=== PATIENT | male | born 1935 | race Caucasian/White ===

== ENCOUNTER 2016-11-30 14:05 | Observation (INO) | payer MEDICARE, OTHER ==
[~2016-11-30] VITALS: Ht 175.3 cm; Wt 83.5 kg
--- NOTE | 2016-11-30 15:35 | REP ---
Chest two views HISTORY: Syncope Comparison: 10/16/2007 The lungs are clear. The heart is normal in size. The pulmonary vasculature is normal in appearance. The bony structure is intact. IMPRESSION: No acute disease. Signed by Tirso Whipple MD 11/30/2016 03:27 P
--- NOTE | 2016-11-30 15:41 | REP ---
CT head without contrast: History: Trauma. Areas of decreased attenuation are present in the periventricular and subcortical white matter. This represents small vessel ischemic disease. There is no intraparenchymal hemorrhage, mass or midline shift. The ventricular system and cortical sulci are dilated consistent with minimal volume loss. There is no extracerebral collection. There is no fracture. The visualized sinuses are clear. IMPRESSION: 1. Small vessel ischemic disease. 2. Minimal volume loss. Signed by Tirso Whipple MD 11/30/2016 04:02 P
--- NOTE | 2016-11-30 15:42 | REP ---
CT CERVICAL SPINE WITHOUT CONTRAST: HISTORY: Trauma. There is no acute fracture. Disc bulges are present at the C2-3 and C3-4 levels. Disc bulges with associated osteophyte formation are present at the C4-5 through C6-7 levels. There is minimal narrowing of the spinal canal. Uncinate process and/or facet hypertrophy are present at the C2-3 through C7-T1 levels. These findings produce minimal to mild narrowing of the neural foramina. The C4-5 through C6-7 intervertebral discs are decreased in height consistent with disc degeneration. There are 1.5 mm of anterior subluxation of C2 on 3 , 2 mm of anterior subluxation of C3 on 4 and 3 mm of anterior subluxation of C7 on T1. There is ossification of the C2 transverse ligament. Anterior osteophytes are present at the C1-2 and C4-5 through C6-7 levels. A 2 cm hypodensity containing calcification is present in the right thyroid lobe. The right thyroid lobe is enlarged. The left thyroid lobe is normal. IMPRESSION: 1. There is no acute fracture. 2. There is cervical spondylosis at the C1-2 through C7-T1 levels. 3. There is a 2 cm hypodensity in the right thyroid lobe. Ultrasound may be helpful for further evaluation. Signed by Tirso Whipple MD 11/30/2016 04:02 P
--- NOTE | 2016-11-30 15:45 | REP ---
Nickel: Trauma. Technique: AP, lateral, bilateral oblique views of the right hand. Findings: Advanced degenerative changes are appreciated primarily involving the wrist and specifically the first and second carpometacarpal joints with chronic subluxation. Subtle acute injury cannot definitively be excluded. Impression: Advanced degenerative changes as described above. Signed by Jd Bianchi MD 11/30/2016 03:37 P
[2016-11-30 15:50] LABS: BASO % 0.6 % (0.0-1.0); EOS # 0.2 K/mm3 (0.0-0.50); EOS % 2.5 % (0.0-3.0); LARGE UNSTAINED CELL # 0.2 K/mm3 (0.0-0.4); LYMPH # 1.5 K/mm3 (1.5-4.5); LYMPH % 19.1 % (24.0-44.0); MEAN CORPUSCULAR HEMOGLOBIN 30.8 pg (27.0-33.0); MEAN CORPUSCULAR HGB CONC 33.2 g/dl (32.0-36.5); MEAN CORPUSCULAR VOLUME 92.7 fl (80.0-96.0); MONO # 0.4 K/mm3 (0.0-0.8); MONO % 5.4 % (0.0-5.0); NEUTROPHILS # 5.6 K/mm3 (1.8-7.7); NEUTROPHILS % 69.4 % (36.0-66.0); PLATELET COUNT, AUTOMATED 286 k/mm3 (150-450); RED CELL DISTRIBUTION WIDTH 14.4 % (11.5-14.5)
[2016-11-30 17:08] LABS: ANION GAP 6 MEQ/L (8-16); BLOOD UREA NITROGEN 15 MG/DL (7-18); CALCIUM LEVEL 9.1 MG/DL (8.8-10.2); CARBON DIOXIDE LEVEL 29 MEQ/L (21-32); CHLORIDE LEVEL 106 MEQ/L (98-107); CREATININE FOR GFR 0.96 MG/DL (0.70-1.30); GLOMERULAR FILTRATION RATE > 60.0 (>42); GLUCOSE, FASTING 97 MG/DL (83-110); POTASSIUM SERUM 4.8 MEQ/L (3.5-5.1); SODIUM LEVEL 141 MEQ/L (136-145)
[2016-11-30] MEDS ORDERED: ALBU17IN INH (18:38)
[2016-11-30] MEDS ORDERED: BRIM1OPD OU (18:38)
[2016-11-30] MEDS ORDERED: FLOM5CAP PO (18:38)
[2016-11-30] MEDS ORDERED: ALEV220T26 PO (18:38)
[2016-11-30] MEDS ORDERED: ZOCO40TA PO (18:38)
[2016-11-30] MEDS ORDERED: CETI10TA PO (18:38)
[2016-11-30] MEDS ORDERED: SYMB16INH INH (18:38)
[2016-11-30] MEDS ORDERED: LATA5OPD OU (18:38)
[2016-11-30] MEDS ORDERED: RAMI5CA PO (18:38)
[2016-11-30] MEDS ORDERED: CETIRIZINE (ZyrTEC) 10 MG TAB PO PRN (19:00)
[2016-11-30] MEDS ORDERED: ALBUTEROL 90 MCG/ACT 8GM HFA INHALER INH PRN (19:00)
[2016-11-30] MEDS ORDERED: LORazepam 2 MG/ML VIAL (J2060) As Ordered ONE (19:22)
[2016-11-30 19:53] LABS: ALBUMIN/GLOBULIN RATIO 1.18 (1.00-1.93); ALKALINE PHOSPHATASE 101 U/L (45-117); ALT/SGPT 28 U/L (12-78); AST/SGOT 26 U/L (15-37); BILIRUBIN,DIRECT 0.1 MG/DL (0.0-0.2); BILIRUBIN,TOTAL 0.5 MG/DL (0.2-1.0); TOTAL PROTEIN 7.4 GM/DL (6.4-8.2)
--- NOTE | 2016-11-30 20:10 | REPUSA ---
MRI of the brain without contrast Clinical history: fall. Technique: Multiecho multiplanar MRI images of the brain were obtained without administration of cont rast. Diffusion weighted images with ADC mapping was also obtained. Findings: The ventricles and sulci are symmetric but prominent in size bilaterally. The brain parenchyma demons trates diffuse T2 hyperintensity throughout the subcortical white matter. There is no midline shift, mass effect, or extra-axial fluid collection. The midline intracranial structures do not demonstrate any gross abnormalities. The cervical cranial junction is intact. The orbits are unremarkable. The vi sualized paranasal sinuses and mastoid air cells are clear. The osseous structures and superficial so ft tissues are unremarkable. The vascular structures demonstrate appropriate flow voids. Impression: No evidence of acute infarct or hemorrhage. Moderate diffuse cerebral atrophy and chronic small vessel ischemic changes as described.
--- NOTE | 2016-11-30 20:20 | REPUSA ---
MRI of the brain clinical history: fall, CVA. Technique: [id number] MRA images of the brain were obtained without administration of contrast. 3 -D MIP images were also obtained. Findings: The vascular structures extending from the distal carotid and vertebrobasilar arterial syst ems, through the [place], demonstrate normal caliber and contour. The left vertebral artery is dominant. There is no evidence of aneurysm, stenosis, or thrombosis. Impression: Unremarkable MRA examination of the brain.
[2016-11-30 20:58] LABS: FOLATE > 24.0 NG/ML (>5.4)
[2016-11-30] MEDS: LATANOPROST 0.005% OPHTH SOLN 2.5 ML OU SCH (21:27)
[2016-11-30] MEDS: SYMBICORT 160/4.5MCG INHALER 6GM INH SCH (21:34)
[2016-11-30] MEDS: SIMVASTATIN 40 MG TAB PO SCH (21:34)
[2016-11-30] MEDS ORDERED: FOLIC ACID 1 MG TAB As Ordered ONE (21:37)
[2016-11-30] MEDS ORDERED: HEPARIN SOD (PORCINE) 5000 UNITS/ML VIAL As Ordered ONE (21:37)
[2016-11-30] MEDS ORDERED: MULTIVITAMINS/MINERALS THERAP 1 TAB As Ordered ONE (21:37)
[2016-11-30] MEDS: NS 1,000 ML IV SCH (21:45)
[2016-11-30] MEDS: FOLIC ACID 1 MG TAB PO SCH (21:48)
[2016-11-30] MEDS: MULTIVITAMINS/MINERALS THERAP 1 TAB PO SCH (21:48)
[2016-11-30] MEDS: HEPARIN SOD (PORCINE) 5000 UNITS/ML VIAL SC SCH (21:51)
[2016-11-30] MEDS: BRIMONIDINE 0.1% OPHTH SOLN 5 ML OU SCH (22:40)
[2016-11-30] MEDS: THIAMINE 100 MG TAB PO SCH (22:56)
--- NOTE | 2016-11-30 23:21 | HPE ---
DATE OF ADMISSION: 11/30/2016 PRIMARY CARE PROVIDER: Dr. Neal Bertrand HISTORY OF THE PRESENT ILLNESS: The patient is a 81-year-old with a past medical history significant for hypertension, BPH, chronic obstructive pulmonary disease (COPD), glaucoma, presented to [facility] on 11/30/2016 for unsteady gait. The patient stated since he started having some lightheadedness and dizziness with position change for the past few weeks and approximately 1 week ago, when he tried to stand up and walk to the kitchen, he fell on the ground and had complete loss of consciousness for a few seconds and he landed on the back of his head. He had not sought any medical attention at the time. Today , when he tried to sit up and stand up, he started having worsening dizziness and unsteady gait and it was much worse than compared to a few weeks ago; therefore, he came to [facility] for further evaluation. The patient denies any recent medication changes. Denies any recent sick contact. Denies any shortness of breath or chest pain. Denies any dysuria or hematuria, or urgency or frequency. Denies any diarrhea. The patient denies any loss of bowel or bladder control. Denies any history of seizures. ALLERGIES: KEFLEX (hives), CLINDAMYCIN (anaphylaxis), CIPRO (hives), BACITRACIN (hives), DILAUDID, LIPITOR (myalgia), PENICILLIN (hives). HOME MEDICATIONS: - simvastatin 80 mg by mouth nightly - Flomax 0.4 mg by mouth daily - ramipril 5 mg by mouth daily - sertraline 10 mg by mouth daily - Symbicort 160-4.5 inhalation daily - Ventolin nebulizer every 4 hours as needed PAST MEDICAL HISTORY: Chronic obstructive pulmonary disease (COPD). Glaucoma. BPH. Hypertension. Contact dermatitis. Abdominal aortic aneurysm, status post surgical repair in 1991. History of diverticular disease, status post surgical repair. PAST SURGICAL HISTORY: Tonsillectomy. Abdominal aortic aneurysm in 1991. Right knee surgery in 1994. Colon resection for diverticulitis in February 1998. Splenectomy. SOCIAL HISTORY: The patient quit smoking 10 years ago. The patient has been drinking a [place], at least two cups every day, for more than 10 years. Denies any recreational drug use. REVIEW OF SYSTEMS: GENERAL: No fever, no chills. HEENT: No vision change. No auditory changes. CARDIOVASCULAR: Denies any chest pain or palpitations. The patient does feel lightheadedness or dizziness when he changes position. RESPIRATORY: No cough, no sputum production. GASTROINTESTINAL: No nausea, no vomiting, no diarrhea but the patient does admit to constipation. MUSCULOSKELETAL: No muscle pain or joint pain. NEUROLOGICAL: No numbness or tingling. OBJECTIVE: VITAL SIGNS: Blood pressure is 156/70, pulse is 56, respirations 16, temperature is 98.2, pulse oximetry is 98% in room air, body height is 79.38 kg, body height is 175.26 cm. GENERAL: No sign of fatigue. No sign of acute distress. Alert and oriented times three. HEENT: Multiple bloody injection to the eyes. No active bleeding in the skull, in the occipital lobe where he had a mechanical fall a week ago. CARDIOVASCULAR: Very distant heart sounds. Positive S1, S2, bradycardia with a heart rate around 50 to 60s. RESPIRATORY: Decreased breath sounds; however no wheezes or rhonchi. ABDOMEN: Obese, soft, nontender, nondistended. Bowel sounds present. No rebound, no guarding. EXTREMITIES: No edema, no cyanosis. NEUROLOGICAL: Sensation to fine touch grossly intact. Muscle strength 5/5. LABORATORY DATA: WBC is 8, hemoglobin 15, hematocrit 45, platelet count is 286. Sodium 141, potassium 4.8, chloride is 106, carbon dioxide 29, BUN 15, creatinine 0.96, GFR greater than 60, fasting glucose 97, calcium 9.1, total CK is 138, troponin I is less than 0.02. IMAGING STUDIES: CT of the head without contrast shows small vessel ischemic disease. Minimal volume loss. Chest x-ray shows no acute disease. CT of cervical spine without contrast shows no acute fracture. There is cervical spondylosis at C1-2 through C7-T1 level. There is a 2 cm hypodensity in the right thyroid lobe. Hand x-ray of the right hand shows advanced degenerative changes. ASSESSMENT: Near syncope and syncopal event. The patient will be admitted to the progressive care unit (PCU) under observation status. The patient noticed his symptoms mainly triggered with positional changes. The patient does have orthostatic hypotension. The patient stated his symptoms show some improvement with fluid hydration. Will continue the IV fluid running at 80 mL per hour. During the examination, the patient also showed some borderline bradycardia. The patient will be on progressive care unit (PCU) to rule out any arrhythmia . The patient could also have symptomatic bradycardia if bradycardia persists. The patient will have an MRI of the brain. The patient will have physical therapy. Flomax will be on hold due to significant side effect for orthostatic hypotension. Hypertension. Continue ramipril. Chronic obstructive pulmonary disease. Currently at baseline. Does not require increased oxygen support. Continue Symbicort and breathing treatment as needed. BPH. Due to current orthostatic hypotension, Flomax will be on hold. Continue to monitor. Glaucoma. Continue eye drops. Deep venous thrombosis (DVT) prophylaxis. The patient will be on heparin. MTDD
[2016-12-01] VITALS (10 sets, daily range): BP systolic 122–192; BP diastolic 60–79
[2016-12-01] MEDS ORDERED: HEPARIN SOD (PORCINE) 5000 UNITS/ML VIAL As Ordered ONE ×2 (05:39→13:59)
[2016-12-01] MEDS: HEPARIN SOD (PORCINE) 5000 UNITS/ML VIAL SC SCH ×3 (05:56→21:46)
[2016-12-01 06:26] LABS: MEAN CORPUSCULAR HEMOGLOBIN 31.4 pg (27.0-33.0); MEAN CORPUSCULAR HGB CONC 33.3 g/dl (32.0-36.5); MEAN CORPUSCULAR VOLUME 94.1 fl (80.0-96.0); RED CELL DISTRIBUTION WIDTH 14.9 % (11.5-14.5); WHITE BLOOD COUNT 7.1 K/mm3 (4.0-10.0)
[2016-12-01 06:38] LABS: ANION GAP 9 MEQ/L (8-16); BLOOD UREA NITROGEN 13 MG/DL (7-18); CALCIUM LEVEL 8.4 MG/DL (8.8-10.2); CARBON DIOXIDE LEVEL 23 MEQ/L (21-32); CHLORIDE LEVEL 110 MEQ/L (98-107); CREATININE FOR GFR 0.85 MG/DL (0.70-1.30); GLOMERULAR FILTRATION RATE > 60.0 (>42); GLUCOSE, FASTING 102 MG/DL (83-110); POTASSIUM SERUM 4.3 MEQ/L (3.5-5.1); SODIUM LEVEL 142 MEQ/L (136-145)
[2016-12-01] MEDS ORDERED: RAMIPRIL 5 MG CAP PO SCH (09:00)
[2016-12-01] MEDS: NS 1,000 ML IV SCH (09:11)
[2016-12-01] MEDS: MULTIVITAMINS/MINERALS THERAP 1 TAB PO SCH ×2 (09:11→20:16)
[2016-12-01] MEDS: THIAMINE 100 MG TAB PO SCH (09:11)
[2016-12-01] MEDS: SYMBICORT 160/4.5MCG INHALER 6GM INH SCH ×2 (09:11→23:58)
[2016-12-01] MEDS: BRIMONIDINE 0.1% OPHTH SOLN 5 ML OU SCH ×3 (09:12→20:17)
--- NOTE | 2016-12-01 14:42 | REP ---
Thyroid ultrasound: Comparison is the CT of the cervical spine dated 09/29/2017. The right thyroid lobe is enlarged measuring 4.9 x 4.1 x 4.1 cm. The thyroid left lobe is normal size measuring 3.9 x 1.9 x 1.2 cm. The right lobe is diffusely heterogeneous . No focal right lobe mass or cyst is identified. In the left lobe at the lower pole, there is a heterogeneous nodule measuring 10 x 7 x 6 mm. Impression: Enlarged diffusely heterogeneous right lobe. Left lobe 1 cm nodule. Consider follow-up radionuclide thyroid scan and ultrasound guided thyroid needle biopsy. Signed by Johnathon Bahena MD 12/01/2016 02:33 P
--- NOTE | 2016-12-01 15:29 | EDDOCDS ---
Physician Documentation [facility] Name: Rafael Randhawa Age: 81 yrs Sex: Male : 1935 Arrival Date: 11/30/2016 Time: 14:05 Bed 18 Private MD: Neal Perez Disposition: 11/30/16 17:55 Hospitalization ordered by Jasmina Frey for Inpatient Admission. Preliminary diagnosis are Syncope and collapse, Abnormalities of gait and mobility. - Bed requested for M ICU. - Status is Inpatient Admission. dy - Condition is Stable. - Problem is new. - Symptoms are unchanged. Historical: - Allergies: Keflex (Hives); Clindamycin (Anaphylaxis); Cipro PO (Hives); BACITRACIN (Hives); Dilaudid; OxyContin (Unknown); Lipitor (muscle cramps); PENICILLINS (Hives); - Home Meds: 1. simvastatin 80 mg Oral tab daily 2. Flomax 0.4 mg Oral cp24 1 cap once daily 3. ramipril 5 mg Oral cap 1 cap once daily 4. cetirizine 10 mg oral tab 1 tab once daily 5. Symbicort 160-4.5 mcg/actuation inhalation HFAA 6. Ventolin HFA 90 mcg/actuation Nebulizer HFAA every 4 hours - PMHx: Hypertension; BPH; Asthma; - PSHx: Aneurysm Repair, Abdominal Aorta; Splenectomy; Hip Arthroplasty, Left; - Social history: Smoking status: Patient states former smoker of tobacco. No barriers to communication noted, The patient speaks fluent Greek. - Family history: Not pertinent. - : The pt / caregiver states he / she is not on anticoagulants. Home medication list is obtained from the patient. - Exposure Risk Screening:: None identified. Vital Signs: 11/30 14:07 BP 139 / 58 RA Sitting (auto/lg); Pulse 70; Resp 16; Temp 98.2(O); Pulse Ox 97% on R/A; bnb Weight 79.38 kg / 175 lbs (R); Height 5 ft. 9 in. (175.26 cm) (R); Pain 0/10; 16:22 BP 144 / 67 Supine (auto/); Pulse 58; ms18 16:24 BP 137 / 60 Sitting (auto/); Pulse 70; ms18 16:25 BP 127 / 59 Standing (auto/); Pulse 68; ms18 16:36 BP 139 / 75 (auto/); ms18 16:38 Pulse 60 MON; Pulse Ox 96% ; ms18 17:06 BP 156 / 70 (auto/); ms18 17:06 Pulse 56 MON; Pulse Ox 98% ; ms18 22:02 BP 136 / 64 (auto/); Resp 18; Pain 0/10; ms18 22:09 Pulse 62 MON; Pulse Ox 95% ; ms18 14:07 Body Mass Index 25.84 (79.38 kg, 175.26 cm) bnb MDM: 14:46 ECG WITH READING ER PHYS+CARDIAG ordered. EDMS 15:03 Still Runner/Pulse Ox/q 30 min VS ordered. br1 15:03 IV Saline Lock ordered. br1 15:03 Rhythm Strip to chart ordered. br1 15:03 Undress patient appropriately for examination ordered. br1 15:04 Orthostatic VS ordered. br1 15:05 Basic Metabolic Profile Ordered. EDMS 15:05 CBC with Diff Ordered. EDMS 15:05 Cardiac Injury Profile Ordered. EDMS 15:05 Troponin Ordered. EDMS 15:05 Chest, 2 View (pa\E\lat) Ordered. EDMS 15:05 Hand, Complete Ordered. EDMS 15:05 CT Head Without Contrast Ordered. EDMS 15:05 CT Spine,Cervical W/o Contrast Ordered. EDMS 15:43 Financial registration complete. [email or web address] 15:56 CBC with Diff Reviewed. br1 15:56 Chest, 2 View (pa\E\lat) Reviewed. br1 15:56 CT Head Without Contrast Reviewed. br1 16:27 NS 0.9% 500 ml IV at bolus once ordered. br1 16:30 ED course: dr perez faxed formal report of ct c spine fo fu of thyroid nodule mlg. ml 16:32 CT Head Without Contrast Reviewed. br1 16:32 CT Spine,Cervical W/o Contrast Reviewed. br1 16:32 Hand, Complete Reviewed. br1 17:40 Basic Metabolic Profile Reviewed. br1 17:40 Cardiac Injury Profile Reviewed. br1 17:40 Troponin Reviewed. br1 17:47 NS 0.9% 500 ml IV at bolus once ordered. br1 17:48 MRI Screening Tool - Place on chart, inform RN ordered. br1 17:49 BED REQUEST+ADM ordered. EDMS 17:49 -MRA-Brain without contrast Ordered. EDMS 17:49 -MRI-Brain without Ordered. EDMS 18:12 MRI Screening Tool - Place on chart, inform RN complete. ms18 18:46 Admission / Observation Status ordered. EDMS 18:47 2 GRAM SODIUM DIET ordered. EDMS 18:50 PHYSICAL THERAPY EVAL & TREAT ordered. EDMS 18:56 LIVER PROFILE Ordered. EDMS 18:56 AMMONIA Ordered. EDMS 18:56 VITAMIN B1 LEVEL Ordered. EDMS 18:56 FOLATE Ordered. EDMS 19:00 THYROID STIMULATING HORMONE Ordered. EDMS 19:05 [facility] Payment Agreement was scanned into [employer] and attached to record. [email or web address] 19:21 LORazepam 1 mg IVP once ordered. br1 19:31 COMPLETE BLOOD COUNT Ordered. EDMS 19:32 BASIC METABOLIC PROFILE Ordered. EDMS 02 11:17 Thyroid, ST head+neck US Ordered. EDMS 15:12 T-Sheet-- Draft Copy was scanned into [employer] and attached to record. gb 15:12 ECG/EKG was scanned into [employer] and attached to record. gb Administered Medications: 11/30 16:31 Drug: NS 0.9% 500 ml [sodium chloride 0.9 % intravenous solution] Route: IV; Rate: ms18 bolus; Site: right antecubital; 17:13 Follow up: IV Status: Completed infusion; IV Intake: 500ml ms18 18:11 Drug: NS 0.9% 500 ml [sodium chloride 0.9 % intravenous solution] Route: IV; Rate: ms18 bolus; Site: right antecubital; 19:37 Follow up: IV Status: Completed infusion; IV Intake: 500ml ms18 19:37 Drug: LORazepam 1 mg [lorazepam 2 mg/mL injection solution (0.5 mL)] Route: IVP; Site: ms18 right antecubital; Signatures: Dispatcher [employer] EDIA Zuly Dickinson MD MD ml Veda Brasher, Reg Reg gb Rik Hines RN RN dy Kunal Andrea MD MD br1 Mbael Alvarado RN RN rs3 Leslie Vigil RN RN ms18 Gunner Esquivel RN RN [facility] Rosemary Mobley, Reg Reg [email or web address] The chart was reviewed and I authenticate all verbal orders and agree with the evaluation and treatment provided.Corrections: (The following items were deleted from the chart) 15:44 14:46 ELECTROCARDIOGRAM PEDIATRIC+CARDIAG ordered. EDMS EDMS 12/01 05:34 05:32 COMPLETE BLOOD COUNT ordered. EDIA EDIA : 11/30 19:05 [facility] Payment Agreement [email or web address] 12/01 15:12 T-Sheet-- Draft Copy gb 15:12 ECG/EKG gb MTDD
--- NOTE | 2016-12-01 15:29 | EDDOCDS ---
Nurse's Notes [facility] Name: Rafael Randhawa Age: 81 yrs Sex: Male : 1935 Arrival Date: 11/30/2016 Time: 14:05 Bed 18 Private MD: Neal Bertrand Diagnosis: Syncope and collapse;Abnormalities of gait and mobility Presentation: 11/30 14:16 Presenting complaint: Patient states: dizzy spells worse with position change. passed rs3 out and hit the head last week. has not seen provider last week. Adult Sepsis Screening: The patient does not have new or worsening altered mentation. Patient's respiratory rate is less than 22. Systolic blood pressure is greater than 100. Patient has a qSOFA score of 0- Negative Sepsis Screen. Suicide/Homicide risk assessment- the patient denies having any suicidal and/or homicidal ideations and does not present with any other emotional, behavioral or mental health complaints. 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 Transition of care: patient was not received from another setting of care. 14:16 Acuity: SUNI Level 3 rs3 14:16 Method Of Arrival: Walkin/Carried/Asstd rs3 Triage Assessment: 14:23 General: Appears in no apparent distress. Pain: Denies pain. Musculoskeletal: Reports rs3 Pain is 3 out of 10 on a pain scale. Historical: - Allergies: Keflex (Hives); Clindamycin (Anaphylaxis); Cipro PO (Hives); BACITRACIN (Hives); Dilaudid; OxyContin (Unknown); Lipitor (muscle cramps); PENICILLINS (Hives); - Home Meds: 1. simvastatin 80 mg Oral tab daily 2. Flomax 0.4 mg Oral cp24 1 cap once daily 3. ramipril 5 mg Oral cap 1 cap once daily 4. cetirizine 10 mg oral tab 1 tab once daily 5. Symbicort 160-4.5 mcg/actuation inhalation HFAA 6. Ventolin HFA 90 mcg/actuation Nebulizer HFAA every 4 hours - PMHx: Hypertension; BPH; Asthma; - PSHx: Aneurysm Repair, Abdominal Aorta; Splenectomy; Hip Arthroplasty, Left; - Social history: Smoking status: Patient states former smoker of tobacco. No barriers to communication noted, The patient speaks fluent Pashto. - Family history: Not pertinent. - : The pt / caregiver states he / she is not on anticoagulants. Home medication list is obtained from the patient. - Exposure Risk Screening:: None identified. Screenin:02 Screening information is obtained from the patient. Fall risk: At risk due to age. ms18 Assistance ADL's: requires no assistance with activities of daily living. Abuse/DV Screen: The patient / caregiver reports he/she is: not in a situation that causes fear, pain or injury. Nutritional screening: No deficits noted. Advance Directives: Currently, there is no health care proxy. home support is adequate. Assessment: 16:32 General: Appears in no apparent distress, comfortable, Behavior is appropriate for age, ms18 cooperative, pleasant. Pain: Denies pain. Neurological: Level of Consciousness is awake, alert, obeys commands, Oriented to person, place, time, Reports dizziness. Respiratory: No deficits noted. Airway is patent Respiratory effort is even, unlabored. Derm: Skin is pink, warm & dry. normal. Musculoskeletal: Range of motion intact in all extremities. No deformity noted. 17:27 General: Appears in no apparent distress, comfortable, Behavior is appropriate for age, ms18 cooperative. Pain: Denies pain. Neurological: Level of Consciousness is awake, alert, obeys commands, Oriented to person, place, time. Respiratory: Airway is patent Respiratory effort is even, unlabored. Derm: Skin is pink, warm & dry. normal. 19:38 General: PT in MRI at this time. Pt very anxious about the machine and unsure if he can ms18 finish. Dr. Andrea aware of this and pt was properly medicated. . 20:48 General: Appears in no apparent distress, comfortable, Behavior is appropriate for age, ms18 cooperative, pleasant, PT able to eat dinner with no issues at this time. Will continue to monitor pt. Meds from pharmacy and MAR have arrived. Will obtain a hospital bed for the pt. Derm: Skin is pink, warm & dry. normal. 21:45 General: Appears in no apparent distress, comfortable, Behavior is appropriate for age, ms18 cooperative, pleasant. General: Pt in no acute distress. VSS. Pt moved to room 18 and placed into a hospital bed. PT is much more comfortable and watching TV at this time. Will continue to monitor pt. Pain: Denies pain. Neurological: Level of Consciousness is awake, alert, obeys commands, Oriented to person, place, time, Moves all extremities. Speech is normal, Facial symmetry appears normal. Respiratory: Airway is patent Respiratory effort is even, unlabored. Derm: Skin is pink, warm & dry. normal. 22:42 General: Appears in no apparent distress, comfortable, Behavior is appropriate for age, ms18 cooperative, pleasant. Pain: Denies pain. Neurological: Level of Consciousness is awake, alert, obeys commands, Oriented to person, place, time. Respiratory: No deficits noted. GI: Abdomen is non- distended. Derm: Skin is pink, warm & dry. normal. Vital Signs: 14:07 BP 139 / 58 RA Sitting (auto/lg); Pulse 70; Resp 16; Temp 98.2(O); Pulse Ox 97% on R/A; bnb Weight 79.38 kg (R); Height 5 ft. 9 in. (175.26 cm) (R); Pain 0/10; 16:22 BP 144 / 67 Supine (auto/); Pulse 58; ms18 16:24 BP 137 / 60 Sitting (auto/); Pulse 70; ms18 16:25 BP 127 / 59 Standing (auto/); Pulse 68; ms18 16:36 BP 139 / 75 (auto/); ms18 16:38 Pulse 60 MON; Pulse Ox 96% ; ms18 17:06 BP 156 / 70 (auto/); ms18 17:06 Pulse 56 MON; Pulse Ox 98% ; ms18 22:02 BP 136 / 64 (auto/); Resp 18; Pain 0/10; ms18 22:09 Pulse 62 MON; Pulse Ox 95% ; ms18 14:07 Body Mass Index 25.84 (79.38 kg, 175.26 cm) b Vitals: 14:07 Log In Time: November 30, 2016 at 14:05. [facility] ED Course: 14:07 Patient visited by Lotus Rosenberg PCA. bnb 14:07 Neal Bertrand is Private Physician. bnb 14:07 Patient moved to Waiting bnb 14:11 Patient moved to Pre RCE bnb 14:18 Triage Initiated rs3 14:39 Leslie Vigil,LUTHER is Primary Nurse. ck1 14:39 Patient moved to 5 ck1 14:44 Patient visited by Hanny Klein RN. ck1 14:55 Kunal Andrea MD is Attending Physician. br1 15:03 Patient visited by Kunal Andrea MD. br1 15:07 EKG done. (by ED staff). Reviewed by Kunal Andrea MD. nb2 15:36 Basic Metabolic Profile Sent. ld5 15:36 CBC with Diff Sent. ld5 15:36 Cardiac Injury Profile Sent. ld5 15:36 Troponin Sent. ld5 15:42 Chest, 2 View (pa\E\lat) Returned. EDMS 15:42 CT Head Without Contrast Returned. EDMS 16:31 Patient visited by Leslie Vigil RN. ms18 16:31 CT Head Without Contrast Returned. EDMS 16:31 CT Spine,Cervical W/o Contrast Returned. EDMS 16:31 Hand, Complete Returned. EDMS 16:32 The patient / caregiver is instructed regarding the plan of care and ED course. Patient ms18 has correct armband on for positive identification. Placed in gown. Bed in low position. Call light in reach. Side rails up X2. Property :Personal belongings accompany Pt. 16:32 Inserted saline lock: 18 gauge in right antecubital area and blood collected. The ms18 patient tolerated the procedure well. 16:38 Patient visited by Chiquita Ventura. dem1 16:38 edger saw operator on. Pulse ox on. NIBP on. dem1 17:13 Patient visited by Leslie Vigil,LUTHER. ms18 17:55 KristieJasmina guzman is Hospitalizing Provider. br1 19:05 [facility] Agreement was scanned into MUJIN and attached to record. ks16 19:22 Patient moved to Admit Hold daq 20:52 -MRI-Brain without Returned. EDMS 20:52 -MRA-Brain without contrast Returned. EDMS 22:02 No procedures done that require assistance. ms18 22:04 Patient moved to 18 sls1 22:04 Patient moved to Admit Hold sls1 22:09 Patient visited by Leslie Vigil,LUTHER. ms18 22:42 Patient visited by Leslie Vigil,LUTHER. ms18 23:10 Primary Nurse role handed off by Leslie Vigil,LUTHER ms18 12/01 12:25 Patient moved to Ultrasound am17 12:39 Patient moved to 18 am17 15:12 T-Sheet-- Draft Copy was scanned into MUJIN and attached to record. gb 15:12 ECG/EKG was scanned into MUJIN and attached to record. gb Administered Medications: 11/30 16:31 Drug: NS 0.9% 500 ml [sodium chloride 0.9 % intravenous solution] Route: IV; Rate: ms18 bolus; Site: right antecubital; 17:13 Follow up: IV Status: Completed infusion; IV Intake: 500ml ms18 18:11 Drug: NS 0.9% 500 ml [sodium chloride 0.9 % intravenous solution] Route: IV; Rate: ms18 bolus; Site: right antecubital; 19:37 Follow up: IV Status: Completed infusion; IV Intake: 500ml ms18 19:37 Drug: LORazepam 1 mg [lorazepam 2 mg/mL injection solution (0.5 mL)] Route: IVP; Site: ms18 right antecubital; Intake: 17:13 IV: 500.00ml; Total: 500.00ml. ms18 19:37 IV: 500.00ml; Total: 1000.00ml. ms18 Order Results: Lab Order: Basic Metabolic Profile; SPEC'M 11/30/16 16:19 Test: GLUCOSE, FASTING; Value: 97; Range: 83-110; Units: MG/DL; Status: F Test: BLOOD UREA NITROGEN; Value: 15; Range: 7-18; Units: MG/DL; Status: F Test: CREATININE FOR GFR; Value: 0.96; Range: 0.70-1.30; Units: MG/DL; Status: F Test: GLOMERULAR FILTRATION RATE; Value: > 60.0; Range: >42; Status: F Test: SODIUM LEVEL; Value: 141; Range: 136-145; Units: MEQ/L; Status: F Test: POTASSIUM SERUM; Value: 4.8; Range: 3.5-5.1; Units: MEQ/L; Status: F Test: CHLORIDE LEVEL; Value: 106; Range: 98-107; Units: MEQ/L; Status: F Test: CARBON DIOXIDE LEVEL; Value: 29; Range: 21-32; Units: MEQ/L; Status: F Test: ANION GAP; Value: 6; Range: 8-16; Abnormal: Below low normal; Units: MEQ/L; Status: F Test: CALCIUM LEVEL; Value: 9.1; Range: 8.8-10.2; Units: MG/DL; Status: F Test Note: ; Units are mL/min/1.73 m2 Chronic Kidney Disease Staging per NKF: Stage I & II GFR >=60 Normal to Mildly Decreased Stage III GFR 30-59 Moderately Decreased Stage IV GFR 15-29 Severely Decreased Stage V GFR <15 Very Little GFR Left ESRD GFR <15 on E BUSINESS PROJECT MANAGER Lab Order: CBC with Diff; SPEC'M 11/30/16 15:35 Test: WHITE BLOOD COUNT; Value: 8.0; Range: 4.0-10.0; Units: K/mm3; Status: F Test: RED BLOOD COUNT; Value: 4.86; Range: 4.30-6.10; Units: M/mm3; Status: F Test: HEMOGLOBIN; Value: 15.0; Range: 14.0-18.0; Units: g/dl; Status: F Test: HEMATOCRIT; Value: 45.0; Range: 42.0-52.0; Units: %; Status: F Test: MEAN CORPUSCULAR VOLUME; Value: 92.7; Range: 80.0-96.0; Units: fl; Status: F Test: MEAN CORPUSCULAR HEMOGLOBIN; Value: 30.8; Range: 27.0-33.0; Units: pg; Status: F Test: MEAN CORPUSCULAR HGB CONC; Value: 33.2; Range: 32.0-36.5; Units: g/dl; Status: F Test: RED CELL DISTRIBUTION WIDTH; Value: 14.4; Range: 11.5-14.5; Units: %; Status: F Test: PLATELET COUNT, AUTOMATED; Value: 286; Range: 150-450; Units: k/mm3; Status: F Test: NEUTROPHILS %; Value: 69.4; Range: 36.0-66.0; Abnormal: Above high normal; Units: %; Status: F Test: LYMPH %; Value: 19.1; Range: 24.0-44.0; Abnormal: Below low normal; Units: %; Status: F Test: MONO %; Value: 5.4; Range: 0.0-5.0; Abnormal: Above high normal; Units: %; Status: F Test: EOS %; Value: 2.5; Range: 0.0-3.0; Units: %; Status: F Test: BASO %; Value: 0.6; Range: 0.0-1.0; Units: %; Status: F Test: LARGE UNSTAINED CELL %; Value: 3.0; Range: 0.0-4.0; Units: %; Status: F Test: NEUTROPHILS #; Value: 5.6; Range: 1.8-7.7; Units: K/mm3; Status: F Test: LYMPH #; Value: 1.5; Range: 1.5-4.5; Units: K/mm3; Status: F Test: MONO #; Value: 0.4; Range: 0.0-0.8; Units: K/mm3; Status: F Test: EOS #; Value: 0.2; Range: 0.0-0.50; Units: K/mm3; Status: F Test: BASO #; Value: 0.0; Range: 0.0-0.2; Units: K/mm3; Status: F Test: LARGE UNSTAINED CELL #; Value: 0.2; Range: 0.0-0.4; Units: K/mm3; Status: F Lab Order: Cardiac Injury Profile; SPEC'M 11/30/16 16:19 Test: CPK CREATINE PHOSPHOKINASE; Value: 138; Range: 39-308; Units: U/L; Status: F Test: CK-MB VALUE MASS; Value: 2.3; Range: 0.0-3.6; Units: NG/ML; Status: F Test: MB/CK RELATIVE INDEX; Value: 1.66; Range: < OR =4; Status: F Test Note: ; DIAGNOSIS CRITERIA MMB ng/ml Relative Index (RI) NON-AMI < or = 5 N/A KHAN ZONE > 5 < or = 4 AMI > 5 > 4 Lab Order: Troponin; SPEC'M 11/30/16 16:19 Test: TROPONIN I; Value: < 0.02; Range: < 0.10; Units: NG/ML; Status: F Test Note: ; Troponin I Reference Interval for Anatexis LOCI: 99th Percentile= 0.00-0.045 ng/ml Risk Stratification: <= 0.10 ng/ml Decreased Risk for Adverse Clinical Events. 0.10-1.50 ng/ml Increased Risk for Adverse Clinical Events. Evaluation of additional criterion and/or repeat testing in 2-6 hours is suggested to rule out myocardial damage. >= 1.50 ng/ml Indicative of Myocardial Injury. Lab Order: LIVER PROFILE; [facility] 11/30/16 19:08 Test: AST/SGOT; Value: 26; Range: 15-37; Units: U/L; Status: F Test: ALT/SGPT; Value: 28; Range: 12-78; Units: U/L; Status: F Test: ALKALINE PHOSPHATASE; Value: 101; Range: 45-117; Units: U/L; Status: F Test: BILIRUBIN,TOTAL; Value: 0.5; Range: 0.2-1.0; Units: MG/DL; Status: F Test: BILIRUBIN,DIRECT; Value: 0.1; Range: 0.0-0.2; Units: MG/DL; Status: F Test: TOTAL PROTEIN; Value: 7.4; Range: 6.4-8.2; Units: GM/DL; Status: F Test: ALBUMIN; Value: 4.0; Range: 3.2-5.2; Units: GM/DL; Status: F Test: ALBUMIN/GLOBULIN RATIO; Value: 1.18; Range: 1.00-1.93; Status: F Lab Order: AMMONIA; [facility] 11/30/16 19:08 Test: AMMONIA; Value: 17; Range: <32; Units: uMOL/L; Status: F Lab Order: FOLATE; [facility] 11/30/16 19:08 Test: FOLATE; Value: > 24.0; Range: >5.4; Units: NG/ML; Status: F Test Note: ; FOLATE NORMAL RANGE NORMAL GREATER THAN 5.4 NG/ML INDETERMINATE 3.4-5.4 NG/ML DEFICIENT LESS THAN 3.4 NG/ML Lab Order: THYROID STIMULATING HORMONE; [facility] 19:10 Test: THYROID STIMULATING HORMONE; Value: 1.830; Range: 0.358-3.740; Units: uIU/ML; Status: F Lab Order: COMPLETE BLOOD COUNT; [facility] 12/01/16 05:55 Test: WHITE BLOOD COUNT; Value: 7.1; Range: 4.0-10.0; Units: K/mm3; Status: F Test: RED BLOOD COUNT; Value: 4.17; Range: 4.30-6.10; Abnormal: Below low normal; Units: M/mm3; Status: F Test: HEMOGLOBIN; Value: 13.1; Range: 14.0-18.0; Abnormal: Below low normal; Units: g/dl; Status: F Test: HEMATOCRIT; Value: 39.3; Range: 42.0-52.0; Abnormal: Below low normal; Units: %; Status: F Test: MEAN CORPUSCULAR VOLUME; Value: 94.1; Range: 80.0-96.0; Units: fl; Status: F Test: MEAN CORPUSCULAR HEMOGLOBIN; Value: 31.4; Range: 27.0-33.0; Units: pg; Status: F Test: MEAN CORPUSCULAR HGB CONC; Value: 33.3; Range: 32.0-36.5; Units: g/dl; Status: F Test: RED CELL DISTRIBUTION WIDTH; Value: 14.9; Range: 11.5-14.5; Abnormal: Above high normal; Units: %; Status: F Test: PLATELET COUNT, AUTOMATED; Value: 258; Range: 150-450; Units: k/mm3; Status: F Lab Order: BASIC METABOLIC PROFILE; [facility] 12/01/16 05:55 Test: GLUCOSE, FASTING; Value: 102; Range: 83-110; Units: MG/DL; Status: F Test: BLOOD UREA NITROGEN; Value: 13; Range: 7-18; Units: MG/DL; Status: F Test: CREATININE FOR GFR; Value: 0.85; Range: 0.70-1.30; Units: MG/DL; Status: F Test: GLOMERULAR FILTRATION RATE; Value: > 60.0; Range: >42; Status: F Test: SODIUM LEVEL; Value: 142; Range: 136-145; Units: MEQ/L; Status: F Test: POTASSIUM SERUM; Value: 4.3; Range: 3.5-5.1; Units: MEQ/L; Status: F Test: CHLORIDE LEVEL; Value: 110; Range: 98-107; Abnormal: Above high normal; Units: MEQ/L; Status: F Test: CARBON DIOXIDE LEVEL; Value: 23; Range: 21-32; Units: MEQ/L; Status: F Test: ANION GAP; Value: 9; Range: 8-16; Units: MEQ/L; Status: F Test: CALCIUM LEVEL; Value: 8.4; Range: 8.8-10.2; Abnormal: Below low normal; Units: MG/DL; Status: F Test Note: ; Units are mL/min/1.73 m2 Chronic Kidney Disease Staging per NKF: Stage I & II GFR >=60 Normal to Mildly Decreased Stage III GFR 30-59 Moderately Decreased Stage IV GFR 15-29 Severely Decreased Stage V GFR <15 Very Little GFR Left ESRD GFR <15 on E BUSINESS PROJECT MANAGER Radiology Order: Chest, 2 View (pa\E\lat) Test: Chest, 2 View (pa\E\lat) REASON FOR EXAMINATION: Syncope; Chest two views; ; HISTORY: Syncope; ; Comparison: 10/16/2007; ; The lungs are clear. The heart is normal in size. The pulmonary vasculature is; normal in appearance. The bony structure is intact.; ; IMPRESSION: No acute disease.; ; ; Signed by; Tirso Whipple MD 11/30/2016 03:27 P; Radiology Order: CT Head Without Contrast Test: CT Head Without Contrast REASON FOR EXAMINATION: Trauma; CT head without contrast:; ; History: Trauma.; ; Areas of decreased attenuation are present in the periventricular and subcortical; white matter. This represents small vessel ischemic disease. There is no; intraparenchymal hemorrhage, mass or midline shift. The ventricular system and; cortical sulci are dilated consistent with minimal volume loss. There is no; extracerebral collection. There is no fracture. The visualized sinuses are; clear.; ; IMPRESSION:; ; 1. Small vessel ischemic disease.; ; 2. Minimal volume loss.; ; ; Signed by; Tirso Whipple MD 11/30/2016 04:02 P; Radiology Order: CT Spine,Cervical W/o Contrast Test: CT Spine,Cervical W/o Contrast REASON FOR EXAMINATION: Trauma; CT CERVICAL SPINE WITHOUT CONTRAST:; ; HISTORY: Trauma.; ; There is no acute fracture. Disc bulges are present at the C2-3 and C3-4 levels.; Disc bulges with associated osteophyte formation are present at the C4-5 through; C6-7 levels. There is minimal narrowing of the spinal canal. Uncinate process; and/or facet hypertrophy are present at the C2-3 through C7-T1 levels. These; findings produce minimal to mild narrowing of the neural foramina. The C4-5; through C6-7 intervertebral discs are decreased in height consistent with disc; degeneration. There are 1.5 mm of anterior subluxation of C2 on 3 , 2 mm; of anterior subluxation of C3 on 4 and 3 mm of anterior subluxation of C7 on T1.; There is ossification of the C2 transverse ligament. Anterior osteophytes are; present at the C1-2 and C4-5 through C6-7 levels. A 2 cm hypodensity containing; calcification is present in the right thyroid lobe. The right thyroid lobe is; enlarged. The left thyroid lobe is normal.; ; IMPRESSION:; ; 1. There is no acute fracture.; ; 2. There is cervical spondylosis at the C1-2 through C7-T1 levels.; ; 3. There is a 2 cm hypodensity in the right thyroid lobe. Ultrasound may be; helpful for further evaluation.; ; ; Signed by; Tirso Whpiple MD 11/30/2016 04:02 P; Radiology Order: Hand, Complete Test: Hand, Complete REASON FOR EXAMINATION: Trauma; Nickel: Trauma.; ; Technique: AP, lateral, bilateral oblique views of the right hand.; ; Findings:; Advanced degenerative changes are appreciated primarily involving the wrist and; specifically the first and second carpometacarpal joints with chronic; subluxation. Subtle acute injury cannot definitively be excluded.; ; Impression:; Advanced degenerative changes as described above.; ; ; Signed by; Jd Bianchi MD 11/30/2016 03:37 P; Radiology Order: -MRA-Brain without contrast Test: -MRA-Brain without contrast REASON FOR EXAMINATION: CVA >4.5hrs; ; MRI of the brain; clinical history: fall, CVA.; Technique: [id number] MRA images of the brain were obtained without administration of contrast. 3; -D MIP images were also obtained.; Findings: The vascular structures extending from the distal carotid and vertebrobasilar arterial syst; ems, through the [place], demonstrate normal caliber and contour. The left vertebral artery; is dominant. There is no evidence of aneurysm, stenosis, or thrombosis.; Impression: Unremarkable MRA examination of the brain.; ; Radiology Order: -MRI-Brain without Test: -MRI-Brain without REASON FOR EXAMINATION: CVA >4.5hrs; ; MRI of the brain without contrast; Clinical history: fall.; Technique: Multiecho multiplanar MRI images of the brain were obtained without administration of cont; rast. Diffusion weighted images with ADC mapping was also obtained.; Findings:; The ventricles and sulci are symmetric but prominent in size bilaterally. The brain parenchyma demons; trates diffuse T2 hyperintensity throughout the subcortical white matter. There is no midline shift,; mass effect, or extra-axial fluid collection. The midline intracranial structures do not demonstrate; any gross abnormalities. The cervical cranial junction is intact. The orbits are unremarkable. The vi; sualized paranasal sinuses and mastoid air cells are clear. The osseous structures and superficial so; ft tissues are unremarkable. The vascular structures demonstrate appropriate flow voids.; Impression: No evidence of acute infarct or hemorrhage. Moderate diffuse cerebral atrophy and chronic; small vessel ischemic changes as described.; ; Outcome: 17:55 Decision to Hospitalize by Provider. br1 22:02 Discharge Assessment: Patient awake and alert. obeys commands, Oriented to person, ms18 place and time. Patient verbalized understanding of disposition instructions. patient administered narcotics - no. The following High Risk Discharge criteria are identified: None. Condition: good Condition: stable. CT Study completed. 12/01 15:28 Patient left the ED. dy Signatures: Dispatcher [employer] EDMS Rachel Kaye RN Veda Dangelo, Reg Reg gb Rik Hines RN LUTHER dy Hanny KleinRN RN ck1 Kunal Andrea MD MD br1 Mabel AlvaradoRN RN rs3 Eve Jeffrey RN RN ld5 Zoë Chao RN RN sls1 Chiquita Ventura dem1 Tereza Ovalle amLeslie Woodall RN RN ms18 Rosemary Mobley, Reg Reg ks16 Ángela Woo nb2 Lotus Rosenberg, BARAK BOATSWAINS MATE bnb MTDD
--- NOTE | 2016-12-01 16:05 | IPNPDOC ---
Subjective Date Seen The patient was seen on 12/01/16. Subjective Chief Complaint/HPI The patient is a 81-year-old male admitted with a reason for visit of Near Syncope. Events since last encounter pt seen and examined, states he still feels dizzy when he stands up from a seating position but his symptoms improved Objective Physical Examination General Exam: Positive: No Acute Distress Eye Exam: Positive: PERRLA Chest Exam: Positive: Clear to auscultation Heart Exam: Positive: Bradycardic, Irregular Rhythm Abdomen Exam: Positive: Normal bowel sounds, Soft, Negative: Hepatospenomegaly, Tenderness Extremity Exam: Positive: Normal pulses, Negative: Clubbing, Cyanosis, Edema Assessment /Plan Problems (1) Syncope Status: Acute Problem Text: * pt had a syncopal episode * MRI and MRA were negative for acute findings * continue IV fluids * continue to monitor on tele (2) Bradycardia Status: Acute Problem Text: * will call dr black * pt may need intervention (3) HTN (hypertension) Status: Chronic Response to Treatment: Stable (4) Glaucoma Status: Chronic Response to Treatment: Stable (5) COPD (chronic obstructive pulmonary disease) Status: Chronic Response to Treatment: Stable (6) BPH (benign prostatic hyperplasia) Status: Chronic Response to Treatment: Stable (7) Hyperlipidemia Status: Chronic Response to Treatment: Stable Plan/VTE VTE Prophylaxis Ordered?: Yes VS, I&O, 24H, [facility] Vital Signs/I&O Vital Signs Date Time Temp Pulse Resp B/P Pulse Ox O2 Delivery O2 Flow Rate FiO2 12/01/16 14:09 62 18 162/74 94 Room Air 12/01/16 12:00 96.3 I&O- Last 24 Hours up to 6 AM 12/01/16 06:00 Intake Total 240 ml Output Total 1100 ml Balance -860 ml Laboratory Data 24H LABS Laboratory Tests 2 11/30/16 16:19: Anion Gap 6L, Blood Urea Nitrogen 15, Creatinine 0.96, Sodium Level 141, Potassium Level 4.8, Chloride Level 106, Carbon Dioxide Level 29, Calcium Level 9.1, Total Creatine Kinase 138, Creatine Kinase MB 2.3, Creatine Kinase MB Relative Index 1.66, Glomerular Filtration Rate > 60.0, Troponin I < 0.02 11/30/16 19:08: Aspartate Amino Transf (AST/SGOT) 26, Alanine Aminotransferase (ALT/SGPT) 28, Alkaline Phosphatase 101, Total Bilirubin 0.5, Direct Bilirubin 0.1, Albumin 4.0 , Albumin/Globulin Ratio 1.18, Ammonia 17, Folate > 24.0, Total Protein 7.4 11/30/16 19:10: Thyroid Stimulating Hormone (TSH) 1.830 12/01/16 05:55: Anion Gap 9, Blood Urea Nitrogen 13, Creatinine 0.85, Sodium Level 142, Potassium Level 4.3, Chloride Level 110H, Carbon Dioxide Level 23, Calcium Level 8.4L, Glomerular Filtration Rate > 60.0 CBC/BMP Laboratory Tests 11/30/16 16:19 Calcium Level 9.1, Total Creatine Kinase 138 12/01/16 05:55 Calcium Level 8.4 L, Red Blood Count 4.17 L, Mean Corpuscular Volume 94.1, Mean Corpuscular Hemoglobin 31.4, Mean Corpuscular Hemoglobin Concent 33.3, Red Cell Distribution Width 14.9 H AYESHA BURNETTE DO Dec 01, 2016 16:05
--- NOTE | 2016-12-01 19:45 | ECGEPIP ---
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
[2016-12-01] MEDS: FOLIC ACID 1 MG TAB PO SCH (20:16)
[2016-12-01] MEDS: SIMVASTATIN 40 MG TAB PO SCH (20:16)
[2016-12-01] MEDS: TAMSULOSIN 0.4 MG CAP PO SCH (20:17)
[2016-12-01] MEDS: LATANOPROST 0.005% OPHTH SOLN 2.5 ML OU SCH (20:18)
--- NOTE | 2016-12-01 22:23 | CR ---
DATE OF CONSULTATION: 12/01/2016 CARDIOLOGY CONSULTATION REFERRING PHYSICIAN: Dr. Washington, Hospitalist. INDICATIONS: Recurrent bradyarrhythmia. Recent syncopal spell. HISTORY: This 81-year-old retired father of three grown children, resident of [place] is chiefly limited by orthopedic problems - low back pain. Continues to try and be quite active, was even splitting wood this past fall. Has no known cardiac disease but has been treated for high blood pressure for many years. He had experienced three episodes of syncope since 2014. First episode of syncope 2014, he got up in the middle of the night to go to the bathroom and collapsed, hitting his bedside table. The second episode was approximately 1 year ago while he was standing looking out the window. The third episode was November 24, having gotten up from his chair in the living room and walking to the kitchen and standing by the stove when he again abruptly collapsed. With each of these episodes, the patient does not recall hitting the ground. Witnessed episode of November 24, 2016, was quite brief, though he did sustain blunt head trauma. Yesterday morning, shortly after getting up out of bed, he began having recurrent episodes of visual blurring/blackout and profound dizziness but did not fall. He contacted his primary physician and was instructed to come to the hospital. He was admitted to a telemetry unit and has recurrent slow heart rates documented in the 30s with pauses of up to 2 seconds. Cardiology consultation was placed. OTHER CARDINAL CARDIAC SYMPTOMS: The patient does recall having had a remote stress study with Dr. Albright but cannot recall precisely the indication. Denies ever having had chest, jaw, or arm discomforts. Up until his admission, he was unaware of having an abnormal EKG. Describes a prior longstanding smoking history (some 40-year history of smoking up to 1-1/2 packs daily, switched to a cigar in 1991, and then a pipe and ultimately stopped smoking in 2006). Describes a gradual worsening effort dyspnea over the years. Admits to feelings some dyspnea climbing one flight of stairs. Because of wheezy bronchitis, has been treated with bronchodilator therapy for some 10 or 15 years. Has an occasional dry cough. Longstanding sinus problem treated with Flonase. No history of hemoptysis but prior episodes of walking pneumonia. Claims to sleep well without orthopnea or nocturnal dyspnea. Nocturia times one is chronic. On Flomax therapy for prostatism. Unaware of prior rheumatic fever or heart murmur. Treated hypertension for at least the past 10 years. Has had a prior weight problem (weighed 165 pounds at age 20, up to 204 pounds in his 60s. His weight has been stable between 170-180 the past several years.) Denies ever having had an awareness of his heart action. No apparent documented rhythm disturbance. Does not drink excessive caffeinated beverages but does admit to drinking two [place] nightly. No documented thyroid dysfunction. Does not use [id number] decongestants, energizers or dietary aids. Denies lateralizing neurological complaints, flank pain, hematuria or blue toe syndrome. Known post abdominal aortic aneurysm repair in 1991 with prior iliac artery stenting. Denies current claudication. No history of varicose veins, phlebitis or ankle swelling. CORONARY RISK FACTORS: Advanced age. Male gender. Prior longstanding smoker. Hypercholesterolemia. Prior weight problem. Hypercholesterolemia. No history of diabetes mellitus or family history of premature coronary heart disease. OTHER PAST MEDICAL/SURGICAL HISTORY: Degenerative lumbar disc disease. Prior cataracts with bilateral cataract extraction. Subsequent detached retina surgery. Known diverticulosis of the colon. Degenerative joint disease with prior left hip replacement 2006. Smoking-induced wheezy bronchitis. Prostatism. Glaucoma. Radiculopathy. Partial colon resection 1997 due to bowel obstruction and adhesions complicated by spleen injury and splenectomy. REVIEW OF SYSTEMS: Denies any fever, chills or recent weight loss. No visual problems or hearing problems. He had good appetite with no reflux or heartburn. Tendency to constipation since his partial bowel resection. Takes milk of magnesia every other day. Denies gastrointestinal (GI) bleeding. Nocturia twice nightly, on Flomax. Denies dysuria or known kidney disease or kidney stones. Chronic low back and knee pain. All other systems review is negative. MEDICATIONS: On admission, his medications included simvastatin 80 mg daily, Flomax 0.4 mg daily, Altace 5 mg daily, Zyrtec 10 mg daily, Symbicort 160/4.5 inhaler two puffs daily, albuterol inhaler two puffs every 4 hours as needed for dyspnea, Alphagan eye drops twice a day, Xalatan 0.005% eye drops to each eye daily, Tylenol 650 mg every 6 hours as needed and clobetasol 0.5% foaming cream to his scalp for psoriasis to affected area twice a day for no longer than 2 weeks. ALLERGIES: CLINDAMYCIN (anaphylaxis), CIPRO (hives), BACITRACIN (hives), PENICILLIN (hives), LIPITOR (leg cramps). DILAUDID and OXYCONTIN are listed as allergies but the patient cannot recall having had these agents. PHYSICAL EXAMINATION: Constitutional: Pleasant, bright elderly male, currently lying comfortably in his bed in the intensive care unit. No obvious pallor or distress. Vital signs: Heart rate 44 beats per minute and regular, blood pressure 196/70 supine, respiratory rate 18 per minute, oxygen saturation 93% on room air. Afebrile. Weight 189 pounds, height 69 inches, body mass index (BMI) 27.8. Eyes: Normal conjunctivae and lids. No pallor or icterus. No xanthelasma. ENT/mouth: Wears dentures. Normal oral moisture. No central cyanosis. Neck: Trachea midline. Thyroid not enlarged. Neck veins did not appear to be elevated. Respiratory: Slightly increased anteroposterior chest diameter with slightly reduced chest excursion but still good air entry over both lung bray. No inspiratory crepitations but slight prolongation of expiration. No current audible wheeze. Cardiovascular: Apical impulse not palpable. Heart sounds are very distant. Unable to detect audible gallop. Has a soft systolic ejection murmur along the left sternal border that does not radiate well to the apex or to the base. Normal carotid upstrokes with no bruits. Upper extremity pulses were normal. Femoral pulses were slightly reduced. Pedal pulses were palpable but reduced. Abdominal aorta was not palpable. No bruits. Has no dependent edema, varicose veins. GI: Soft, overweight abdomen with well-healed abdominal incision for partial colectomy and prior splenectomy 1997. No hepatomegaly. Normal bowel sounds. Rectal examination not indicated. Musculoskeletal: His gait of course was not assessed at this time because of his symptomatic bradyarrhythmia. No obvious joint deformities. Muscular strength and tone appear to be normal for his age. Normal spine curvature. Neurologic/Psychiatric: Bright, alert and oriented, gave a lucid history. Eye, facial, and extremity movements were symmetrical and normal. No abnormal movements. Skin: No rashes, ecchymotic lesions, pallor or icterus. Well-healed surgical incisions. INVESTIGATIONS: PA and left lateral chest x-ray taken in the emergency room November 30, 2016 was reviewed independently. This shows a normal appearing heart size with CT ratio of 15.1:34.3. Slightly unfolded thoracic aorta but normal pulmonary vasculature. Somewhat hyperinflated lung bray with flattened diaphragms on the lateral projection. No localized infiltrate. Degenerative changes of his thoracic spine with degree of osteoporosis. Because of his recent head trauma, a CT scan was performed which showed minimal cerebral atrophy, evidence of small vessel disease but no intraparenchymal hemorrhage, midline shift or mass. No evidence of fracture. His sinuses were clear. An MRI of the brain was also performed, again showing no evidence of acute infarction or hemorrhage, but moderate degree of cerebral atrophy. A thyroid ultrasound was performed in light of enlarged thyroid detected on chest CT scan/cervical spine scan. This showed a diffusely enlarged heterogeneous right lobe of the thyroid with a 1 cm left lobe nodule. EKG in the emergency room showed sinus rhythm at 60 beats per minute (BPM), left atrial conduction disturbance, marked first-degree AV block, somewhat low limb voltages with prominent R waves in V2 and V3, could not rule out RVH or prior posterior wall myocardial infarction (MS). Nonspecific ST/T-wave abnormalities. OPERATIONS ADVISOR STRIPS: I have reviewed multiple tracings showing marked diurnal bradycardia with rates in the 30s and occasional ventricular escape rhythm at 30 beats per minute. Intrinsic [place] QRS complexes are narrow except for the junctional/ventricular escape rhythms. BLOOD WORK: Hemoglobin today was 13.1 with normal white blood cell count and platelet count. His electrolytes are normal with BUN 13, creatinine 0.85, fasting glucose 102. Serum calcium was slightly low at 8.4 with albumin 4.0. Ultrasensitive TSH is normal at 1.8. Serial Troponin I levels are all negative. IMPRESSION/PLAN: 1. Recurrent near syncope/syncope: From his description and his telemetry findings here, I have no doubt that he has been having intermittent symptomatic bradyarrhythmias - due to sinus node and AV abby dysfunction. No orthostatic hypotension has been documented even with his antihypertensive agents. Has a very soft systolic murmur, likely related to aortic valvular sclerosis. As mentioned, no serial repolarization changes or cardiac enzyme abnormalities. A degree of sinus bradycardia with nonspecific ST/T-wave abnormalities date back to 2000. 2. Sinus node dysfunction/first-degree AV block: As explained to the patient, he has advanced conduction tissue disease. There is no clear reversible aggravating factor. We have recommended implantation of permanent dual-chamber pacemaker in order to prevent further episodes of near syncope and syncope. The indication, procedure, and potential risks of permanent pacer implant were discussed with the patient and his in detail who appear to understand. We have tentatively scheduled his surgery for tomorrow morning under monitored local anesthesia. 3. Abnormal electrocardiogram (EKG): Appearance is primarily related to his longstanding smoking-induced pulmonary disease and his hypertension. Other than the observed rates and the increased NV interval, there did not appear to be any change from a remote tracings. 4. Chronic essential hypertension: Day to day activity is limited by orthopedic problems primarily, but does admit to having some effort dyspnea. No other symptoms or signs of congestion despite the chronicity of his hypertension. Presently has an accelerated systolic hypertension because of his bradyarrhythmia. His EKG does show a strain pattern and possible left atrial conduction disturbance but voltages are not prominent and his chest x-ray shows heart size upper limits of normal with no sign of pulmonary venous congestion. At this point, no change has been made to his ramipril. For some reason, his Flomax was placed on hold, and I will order that for him tonight. Fortunately, renal function appears to be normal with estimated glomerular filtration rate greater than 60. 5. Thyromegaly. Asymmetrical thyroid enlargement detected incidentally and further evaluated with ultrasound, is clinically and chemically euthyroid. I do not believe his bradyarrhythmias are related to thyroid dysfunction. In light of his abnormal EKG and multiple coronary risk factors, I believe it would be prudent to consider a repeat evaluation of his coronary prognosis. We will discuss obtaining a Regadenoson Cardiolite heart scan at some point at the time of his discharge. From our standpoint, he should be able to be discharged home at 24 hours after his pacer implant tomorrow. I thank you for allowing us to participate in the care of your patient. Best Regards, Yours Sincerely, cc: MD ERIKA Kraus
[2016-12-02] VITALS (13 sets, daily range): BP systolic 110–193; BP diastolic 59–117
[2016-12-02 04:41] LABS: MEAN CORPUSCULAR HEMOGLOBIN 31.3 pg (27.0-33.0); MEAN CORPUSCULAR HGB CONC 33.2 g/dl (32.0-36.5); MEAN CORPUSCULAR VOLUME 94.2 fl (80.0-96.0); RED CELL DISTRIBUTION WIDTH 14.7 % (11.5-14.5); WHITE BLOOD COUNT 7.6 K/mm3 (4.0-10.0)
[2016-12-02 05:07] LABS: ANION GAP 9 MEQ/L (8-16); BLOOD UREA NITROGEN 10 MG/DL (7-18); CALCIUM LEVEL 8.7 MG/DL (8.8-10.2); CARBON DIOXIDE LEVEL 23 MEQ/L (21-32); CHLORIDE LEVEL 111 MEQ/L (98-107); CREATININE FOR GFR 0.85 MG/DL (0.70-1.30); GLOMERULAR FILTRATION RATE > 60.0 (>42); GLUCOSE, FASTING 100 MG/DL (83-110); SODIUM LEVEL 143 MEQ/L (136-145)
[2016-12-02] MEDS: HEPARIN SOD (PORCINE) 5000 UNITS/ML VIAL SC SCH ×3 (05:21→21:41)
[2016-12-02] MEDS ORDERED: VANCOMYCIN HCL 1,000 MG, VIAL MATE ADAPTER 1 EACH in D5W 250 ML IV SCH (06:00)
[2016-12-02] MEDS: SYMBICORT 160/4.5MCG INHALER 6GM INH SCH ×2 (07:34→20:28)
[2016-12-02] MEDS ORDERED: LIDOCAINE 1% SDV INJ 30 ML VIAL As Ordered ONE (07:45)
[2016-12-02] MEDS ORDERED: LIDOCAINE 2% INJ 100 MG/5 ML SDV (FOR ANES.) As Ordered ONE (07:52)
[2016-12-02] MEDS ORDERED: fentaNYL 100 MCG/2 ML INJECTION (J3010) As Ordered ONE (07:52)
[2016-12-02] MEDS ORDERED: MIDAZOLAM INJ 2 MG/2 ML VIAL (J2250) As Ordered ONE (07:52)
[2016-12-02] MEDS ORDERED: PROPOFOL 200 MG/20 ML VIAL As Ordered ONE (07:52)
--- NOTE | 2016-12-02 07:58 | ECGEPIP ---
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 Nonspecific ST/T wave abnormalities Slower rate from 11/30/16 Electronically Signed On 12-02-2016 7:58:13 EST by Bang Gan
[2016-12-02] MEDS ORDERED: LIDOCAINE 1% SDV INJ 30 ML VIAL SC ONE (09:14)
[2016-12-02] MEDS: RAMIPRIL 5 MG CAP PO SCH ×2 (09:51→20:26)
[2016-12-02] MEDS ORDERED: LR 1,000 ML IV SCH (10:00)
[2016-12-02] MEDS ORDERED: ONDANSETRON 4MG/2ML VIAL (J2405) IV PRN (10:00)
[2016-12-02] MEDS ORDERED: NORCO, ANEXSIA 5/325MG TABLET (HYDROcodone/ACETAMINOPHEN) PO PRN (10:00)
--- NOTE | 2016-12-02 10:14 | RO ---
DATE OF PROCEDURE: 12/02/2016 PREOPERATIVE DIAGNOSES: 1. Sinus node dysfunction. 2. First-degree AV block. 3. Recurrent near syncope/syncope. POSTOPERATIVE DIAGNOSES: 1. Sinus node dysfunction. 2. First-degree AV block. 3. Recurrent near syncope/syncope. PROCEDURE: Implantation of permanent dual chamber pacemaker. IMPLANTING PAPER TUBE MACHINE OPERATOR: Dr. Bang Gan ANESTHESIOLOGIST: Dr. Fortune ANESTHESIA: Monitored local anesthesia. DESCRIPTION OF PROCEDURE: The patient in a fasting state having signed informed consent and having received vancomycin 1 gram IV infusion over 1 hour, the patient was taken to the operating theater. Numerous skin electrodes were applied to facilitate continuous electrocardiographic monitoring. The left subclavian region was prepped and draped in the usual fashion and the skin was infiltrated with 1% Xylocaine. The left axillary/left subclavian vein was catheterized using the micropuncture technique. A 5 cm linear incision was made several centimeters below and parallel to the left clavicle. Dissection was carried down to the level of the pectoralis fascia and a pocket was fashioned below the level of the incision line. Two bipolar screw-in active fixation steroid eluting MRI compatible pacing leads were then positioned to the distal right ventricular septum and the anterior right atrial wall. This was accomplished under fluoroscopic electrocardiographic control. The ventricular lead ([employer], model number [id number], serial number [id number]) measurements were: Stimulation threshold 0.5 V/0.4 ms/impedance 668 ohms. The R wave amplitude measured 4.6 mV. The atrial lead ([employer], model number [id number], serial number [id number]) measurements were: Stimulation threshold 1.2 V /0.4 ms/impedance 651 ohms. The P wave amplitude measured 3.7 mV. These leads were secured in position with sleeves sutured at their insertion site. They were then connected to a rate responsive dual-chamber pulse generator that was also MRI compatible ([employer] [facility], model number [id number], serial number [id number]) and appropriate DDD pacing wall was documented. The rate responsive feature of this device has been activated. The device was placed in the pocket and secured in position with a suture through the upper right-hand corner of the epoxy header. The subcutaneous tissues were approximated using a running chromic suture and the skin was closed using mariusz. A dry dressing was applied. The patient was returned to recovery room in good condition. Estimated blood loss was less than 50 mL. No apparent complications. Postoperative portable upright chest x-ray showed good lead position with no pneumothorax. His electrocardiogram (EKG) confirmed appropriate DDD pacing. Our plan will be to monitor him on telemetry for an additional 24 hours prior to sending him home. ERIKA
--- NOTE | 2016-12-02 10:15 | REP ---
Clinical: Pacemaker placement . Comparison: 11/30/2016 . Findings: The mediastinum and cardiac silhouette are stable and within normal limits for portable technique. Pacemaker in satisfactory position. The lung bray are clear without acute consolidation, effusion, or pneumothorax. Skeletal structures are intact. Impression: No acute cardiopulmonary process. No pneumothorax. Signed by Jd Bianchi MD 12/02/2016 10:05 A
[2016-12-02] MEDS: THIAMINE 100 MG TAB PO SCH (10:44)
[2016-12-02] MEDS: MULTIVITAMINS/MINERALS THERAP 1 TAB PO SCH ×2 (10:44→20:26)
[2016-12-02] MEDS: BRIMONIDINE 0.1% OPHTH SOLN 5 ML OU SCH ×3 (10:44→20:26)
--- NOTE | 2016-12-02 13:14 | IPNPDOC ---
Subjective Date Seen The patient was seen on 12/02/16. Subjective Chief Complaint/HPI The patient is a 81-year-old male admitted with a reason for visit of Near Syncope. Events since last encounter pt seen and examined doing well, will get pacemaker today Pulmonary: Denies: Cough, Dyspnea Cardiovascular: Denies: Chest Pain, Lt Headedness, Orthopnea, Palpitations, Paroxysmal Noc. Dyspnea Objective Physical Examination General Exam: Positive: No Acute Distress Eye Exam: Positive: PERRLA Chest Exam: Positive: Clear to auscultation Heart Exam: Positive: Bradycardic, Irregular Rhythm Abdomen Exam: Positive: Normal bowel sounds, Soft, Negative: Hepatospenomegaly, Tenderness Extremity Exam: Positive: Normal pulses, Negative: Clubbing, Cyanosis, Edema Assessment /Plan Problems (1) Syncope Status: Acute Problem Text: * pt had a syncopal episode secondary to bradyarrhythmia * pt will also need a cardiac eval outpt per dr black * will likely be able to go home tomorrow * will need to follow up with dr black outjr (2) Bradycardia Status: Acute Problem Text: * pt will be taken for pacemaker today (3) HTN (hypertension) Status: Chronic Response to Treatment: Stable (4) Glaucoma Status: Chronic Response to Treatment: Stable (5) COPD (chronic obstructive pulmonary disease) Status: Chronic Response to Treatment: Stable (6) BPH (benign prostatic hyperplasia) Status: Chronic Response to Treatment: Stable (7) Hyperlipidemia Status: Chronic Response to Treatment: Stable Plan/VTE VTE Prophylaxis Ordered?: Yes VS, I&O, 24H, Fishbone Vital Signs/I&O Vital Signs Date Time Temp Pulse Resp B/P Pulse Ox O2 Delivery O2 Flow Rate FiO2 12/02/16 12:22 97.4 60 24 135/65 95 Room Air I&O- Last 24 Hours up to 6 AM 12/02/16 05:59 Intake Total 1020 ml Output Total 2650 ml Balance -1630 ml Laboratory Data 24H LABS Laboratory Tests 2 12/02/16 04:11: Anion Gap 9, Blood Urea Nitrogen 10, Creatinine 0.85, Sodium Level 143, Potassium Level 4.0, Chloride Level 111H, Carbon Dioxide Level 23, Calcium Level 8.7L, Glomerular Filtration Rate > 60.0 CBC/BMP Laboratory Tests 12/02/16 04:11 Calcium Level 8.7 L, Red Blood Count 4.11 L, Mean Corpuscular Volume 94.2, Mean Corpuscular Hemoglobin 31.3, Mean Corpuscular Hemoglobin Concent 33.2, Red Cell Distribution Width 14.7 H AYESHA BURNETTE DO Dec 02, 2016 13:14
--- NOTE | 2016-12-02 17:30 | ECGEPIP ---
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 Pacemaker new from 12/01/16 Electronically Signed On 12-02-2016 17:30:06 EST by Bang Gan
[2016-12-02] MEDS: ACETAMINOPHEN TAB 650MG DOSE (2X325MG) PO PRN (19:59)
[2016-12-02] MEDS ORDERED: diphenhydrAMINE 50 MG CAP PO ONE (20:15)
[2016-12-02] MEDS: SIMVASTATIN 40 MG TAB PO SCH (20:25)
[2016-12-02] MEDS: FOLIC ACID 1 MG TAB PO SCH (20:26)
[2016-12-02] MEDS: LATANOPROST 0.005% OPHTH SOLN 2.5 ML OU SCH (20:26)
[2016-12-02] MEDS: TAMSULOSIN 0.4 MG CAP PO SCH (20:26)
[2016-12-02] MEDS ORDERED: VANCOMYCIN HCL 1,000 MG, VIAL MATE ADAPTER 1 EACH in D5W 250 ML IV ONE (21:00)
[2016-12-03 00:53] VITALS: BP 168/78
[2016-12-03] MEDS: ACETAMINOPHEN TAB 650MG DOSE (2X325MG) PO PRN (02:40)
[2016-12-03 04:51] LABS: MEAN CORPUSCULAR HEMOGLOBIN 31.7 pg (27.0-33.0); MEAN CORPUSCULAR HGB CONC 33.9 g/dl (32.0-36.5); MEAN CORPUSCULAR VOLUME 93.5 fl (80.0-96.0); RED CELL DISTRIBUTION WIDTH 14.8 % (11.5-14.5); WHITE BLOOD COUNT 8.8 K/mm3 (4.0-10.0)
[2016-12-03] MEDS: HEPARIN SOD (PORCINE) 5000 UNITS/ML VIAL SC SCH (05:03)
[2016-12-03 05:10] VITALS: BP 141/67
[2016-12-03 05:10] LABS: ANION GAP 10 MEQ/L (8-16); BLOOD UREA NITROGEN 11 MG/DL (7-18); CARBON DIOXIDE LEVEL 23 MEQ/L (21-32); CHLORIDE LEVEL 109 MEQ/L (98-107); CREATININE FOR GFR 0.82 MG/DL (0.70-1.30); GLOMERULAR FILTRATION RATE > 60.0 (>42); GLUCOSE, FASTING 102 MG/DL (83-110); SODIUM LEVEL 142 MEQ/L (136-145)
[2016-12-03 08:00] VITALS: BP 165/74
--- NOTE | 2016-12-03 08:21 | REP ---
Clinical: Pacemaker. Comparison: 12/02/2016. Findings: Mediastinum and cardiac silhouette are stable. Linear plate-like atelectasis in the right mid lung zone is appreciated. Chronic stable changes noted. No further consolidation, effusion, or pneumothorax. Skeletal structures intact. Impression: Plate-like atelectasis in the right mid lung zone. No effusion or pneumothorax. Signed by Jd Bianchi MD 12/03/2016 08:12 A
[2016-12-03 08:55] VITALS: BP 165/74
[2016-12-03] MEDS: RAMIPRIL 5 MG CAP PO SCH (08:55)
[2016-12-03] MEDS: MULTIVITAMINS/MINERALS THERAP 1 TAB PO SCH (08:55)
[2016-12-03] MEDS: THIAMINE 100 MG TAB PO SCH (08:55)
[2016-12-03] MEDS: SYMBICORT 160/4.5MCG INHALER 6GM INH SCH (08:56)
[2016-12-03] MEDS: BRIMONIDINE 0.1% OPHTH SOLN 5 ML OU SCH (08:56)
[2016-12-03 11:30] VITALS: BP 160/70
[2016-12-03] MEDS ORDERED: RAMI5CA PO (11:56)
[2016-12-03] MEDS ORDERED: CHLO125TA PO (11:56)
--- NOTE | 2016-12-03 12:09 | IPN ---
DATE OF SERVICE: 12/03/2016 CARDIOLOGY PROGRESS NOTE SUBJECTIVE: The patient has been up with physical therapy and is feeling well. No further problems with dizziness since his pacemaker implant yesterday. Has had only mild incisional discomfort. OBJECTIVE: Pleasant elderly male lying comfortably. Medium body build. Heart rate 60 beats per minute (bpm) and regular, blood pressure 160/68 both lying and sitting with legs dependent, respiratory rate 16 per minute, oxygen saturation 96% on room air. He is afebrile. Weight 184 pounds, height 69 inches and body mass index (BMI) 27. No pallor or icterus. Normal oral moisture. Trachea midline. Neck veins were not elevated. I changed his pacer dressing today and there is a slight degree of swelling, but no erythema or discharge. There was good air entry over both lung bray with no current adventitious sounds. No pedal edema and slightly reduced pedal pulses, but normal radial pulses. EKG MONITORING: This is confirmed appropriate and mostly atrioventricular (AV) paced rhythm. Occasional spontaneous narrow QRS complex. CHEST X-RAY: PA left lateral study taken earlier today was reviewed independently and shows stable lead position with no pneumothorax. Lung bray show a subtle right midlung zone atelectatic segment which is unchanged. EKG: Consistent AV sequentially paced rhythm with QRS complexes having a leftward axis with left bundle branch block configuration consistent with right ventricular stimulation. LABORATORY DATA: Hemoglobin 13.4, normal white blood cell count and platelet count. Electrolytes were normal. BUN 11, creatinine 0.8, fasting glucose 102, calcium 9.0. IMPRESSION/PLAN: 1. Chronic essential hypertension: Has no symptoms or signs of congestion, but systolic blood pressure remains suboptimally controlled despite increased ramipril and his improved heart rate. He will continue on the same ramipril 5 mg twice a day and Flomax 0.4 mg nightly, but we have added low-dose chlorthalidone 12.5 mg Mondays, Wednesdays and Fridays. He will receive his first dose prior to his discharge today. We will arrange for a followup chemistry and clinic visit in my office in approximately 7-10 days time to reevaluate this. 2. Sinus node dysfunction/first-degree AV block/dual-chamber pacemaker in situ: Has remained free of any further near syncope or syncope. His pacemaker was evaluated in detail today and showed excellent intracardiac electrograms and pacing thresholds, with anticipated battery longevity of 11.5 years. We did activate auto capture functions today to prolong battery life. His incision appears to be healing well. We will plan on a wound check and staple removal visit in 7-10 days time, as mentioned above. He has been encouraged to perform only light activities of daily living with his left arm until the mariusz are removed and to avoid getting his incision wet. Should he notice any abnormal erythema, swelling or discharge, he has been encouraged contact our office promptly. 3. Abnormal EKG: As mentioned, his tracing prior to pacemaker implant had an appearance related to his longstanding smoking, induced pulmonary disease and hypertension. He certainly has multiple coronary risk factors and we plan on discussing obtaining a pharmacological stress heart scan at the time of his clinic visit in approximately one week. 4. 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 He has a normal carotid upstroke and, as mentioned above, an increased pulse pressure against left ventricle outflow tract obstruction. No audible diastolic murmur. Has no symptoms or signs of endocarditis. Afebrile. Normal white blood cell count. Other than optimal blood pressure control, no special measures would be deemed necessary. I have spoken with Dr. Washington, the hospitalist caring for the patient. From our standpoint, he could be discharged home with the above restrictions and medication adjustments. My office will be contacting him 12/05/2016 for his followup appointment.
--- NOTE | 2016-12-03 12:25 | DSES ---
DATE OF ADMISSION: 11/30/2016 DATE OF DISCHARGE: 12/03/2016 REASON FOR ADMISSION: Syncopal episode. FINAL DIAGNOSES: 1. Bradycardic arrhythmia status post pacemaker. 2. Syncopal episode secondary to bradycardic arrhythmia. 3. Sinus node dysfunction, first-degree atrioventricular (AV) block. 4. Chronic essential hypertension. 5. Enlarged thyroid gland 6. History of chronic obstructive pulmonary disease (COPD). 7. Benign prostatic hypertrophy (BPH). 8. History of contact dermatitis. 9. History of glaucoma. 10. Abdominal aortic aneurysm status post surgical repair 1991. HISTORY OF PRESENT ILLNESS: Patient is a 81-year-old male, presented to the emergency room after having a syncopal episode. The patient stated he had several syncopal episodes, last of which was a few days prior to admission. He stated he was outside and fell, lost consciousness for a few seconds, landed on the back of his head. Stated that earlier today prior to come in, he was standing up from a sitting position and felt worsening dizziness and unsteady gait, but did not have a syncopal episode, and came to the emergency room for evaluation. In the emergency room, patient had orthostatics done which were negative. CT of the head was negative for any acute findings. Cervical CT only showed 2 cm hypodense right thyroid lobe. Ultrasound was recommended. He had a hand x-ray, which only showed advanced degenerative changes. Brain MRI/MRA were both done and showed no evidence of acute infarction or hemorrhage. MRA was unremarkable. The patient was placed on telemetry. Thyroid ultrasound was also ordered, showed a heterogeneous nodule measuring 10 x 7 x 6 mm and large diffuse right lobe. Video nuclear thyroid scan and ultrasound guided biopsy was recommended. Patient was noted to have bradycardic arrhythmia on telemetry. After he moved to the intensive care unit (ICU), Dr. Gan was contacted at that point and consulted. He felt that based on the findings and syncopal episode, patient would benefit from a pacemaker. The following day, patient was taken back for pacemaker insertion, which he tolerated well. He remained in the hospital overnight. The following day, pacemaker was interrogated by Dr. Gan. He felt like it was working appropriately and he was ready for discharge to followup with him in the office by next Sunday. He also increased his blood pressure medications, added chlorthalidone 12.5 mg Sunday, Sunday, Sunday. He received one dose prior to discharge and increased his ramipril from 5 mg by mouth daily to twice a day. Once patient was stable for discharge, he was at home. DISCHARGE INSTRUCTIONS: 1. He is to follow up with primary care provider in one week. 2. Diet: Low-sodium diet. 3. Activity as tolerated. DISCHARGE MEDICATIONS: Include: - chlorthalidone 12.5 mg by mouth Sunday, Sunday, Sunday. - ramipril 5 mg by mouth twice a day - Ventolin two puffs inhaled four times a day as needed for shortness of breath - Alphagan drops in each eye three times a day - Symbicort two puffs inhaled twice a day - cetirizine 10 mg by mouth daily as needed itching - Aleve 440 mg by mouth twice a day - simvastatin 40 mg at bedtime - Flomax 0.4 mg by mouth daily. FOLLOWUP: Patient is to follow up with Dr. Bertrand regarding thyroid uptake study versus needle biopsy to further assess thyroid nodule. DISCHARGE CONDITION: Stable.
[2016-12-03] MEDS ORDERED: CHLORTHALIDONE 12.5MG PER 1/2 TABLET PO ONE (13:00)
--- NOTE | 2016-12-03 16:29 | EDDOCDS ---
Nurse's Notes [facility] Name: Rafael Randhawa Age: 81 yrs Sex: Male : 1935 Arrival Date: 11/30/2016 Time: 14:05 Bed 18 Private MD: Neal Bertrand Diagnosis: Syncope and collapse;Abnormalities of gait and mobility Presentation: 11/30 14:16 Presenting complaint: Patient states: dizzy spells worse with position change. passed rs3 out and hit the head last week. has not seen provider last week. Adult Sepsis Screening: The patient does not have new or worsening altered mentation. Patient's respiratory rate is less than 22. Systolic blood pressure is greater than 100. Patient has a qSOFA score of 0- Negative Sepsis Screen. Suicide/Homicide risk assessment- the patient denies having any suicidal and/or homicidal ideations and does not present with any other emotional, behavioral or mental health complaints. Status: Patient is not a patient financial services manager or dependent. Transition of care: patient was not received from another setting of care. 14:16 Acuity: SUNI Level 3 rs3 14:16 Method Of Arrival: Walkin/Carried/Asstd rs3 Triage Assessment: 14:23 General: Appears in no apparent distress. Pain: Denies pain. Musculoskeletal: Reports rs3 Pain is 3 out of 10 on a pain scale. Historical: - Allergies: Keflex (Hives); Clindamycin (Anaphylaxis); Cipro PO (Hives); BACITRACIN (Hives); Dilaudid; OxyContin (Unknown); Lipitor (muscle cramps); PENICILLINS (Hives); - Home Meds: 1. simvastatin 80 mg Oral tab daily 2. Flomax 0.4 mg Oral cp24 1 cap once daily 3. ramipril 5 mg Oral cap 1 cap once daily 4. cetirizine 10 mg oral tab 1 tab once daily 5. Symbicort 160-4.5 mcg/actuation inhalation HFAA 6. Ventolin HFA 90 mcg/actuation Nebulizer HFAA every 4 hours - PMHx: Hypertension; BPH; Asthma; - PSHx: Aneurysm Repair, Abdominal Aorta; Splenectomy; Hip Arthroplasty, Left; - Social history: Smoking status: Patient states former smoker of tobacco. No barriers to communication noted, The patient speaks fluent Polish. - Family history: Not pertinent. - : The pt / caregiver states he / she is not on anticoagulants. Home medication list is obtained from the patient. - Exposure Risk Screening:: None identified. Screenin:02 Screening information is obtained from the patient. Fall risk: At risk due to age. ms18 Assistance ADL's: requires no assistance with activities of daily living. Abuse/DV Screen: The patient / caregiver reports he/she is: not in a situation that causes fear, pain or injury. Nutritional screening: No deficits noted. Advance Directives: Currently, there is no health care proxy. home support is adequate. Assessment: 16:32 General: Appears in no apparent distress, comfortable, Behavior is appropriate for age, ms18 cooperative, pleasant. Pain: Denies pain. Neurological: Level of Consciousness is awake, alert, obeys commands, Oriented to person, place, time, Reports dizziness. Respiratory: No deficits noted. Airway is patent Respiratory effort is even, unlabored. Derm: Skin is pink, warm & dry. normal. Musculoskeletal: Range of motion intact in all extremities. No deformity noted. 17:27 General: Appears in no apparent distress, comfortable, Behavior is appropriate for age, ms18 cooperative. Pain: Denies pain. Neurological: Level of Consciousness is awake, alert, obeys commands, Oriented to person, place, time. Respiratory: Airway is patent Respiratory effort is even, unlabored. Derm: Skin is pink, warm & dry. normal. 19:38 General: PT in MRI at this time. Pt very anxious about the machine and unsure if he can ms18 finish. Dr. Andrea aware of this and pt was properly medicated. . 20:48 General: Appears in no apparent distress, comfortable, Behavior is appropriate for age, ms18 cooperative, pleasant, PT able to eat dinner with no issues at this time. Will continue to monitor pt. Meds from pharmacy and MAR have arrived. Will obtain a hospital bed for the pt. Derm: Skin is pink, warm & dry. normal. 21:45 General: Appears in no apparent distress, comfortable, Behavior is appropriate for age, ms18 cooperative, pleasant. General: Pt in no acute distress. VSS. Pt moved to room 18 and placed into a hospital bed. PT is much more comfortable and watching TV at this time. Will continue to monitor pt. Pain: Denies pain. Neurological: Level of Consciousness is awake, alert, obeys commands, Oriented to person, place, time, Moves all extremities. Speech is normal, Facial symmetry appears normal. Respiratory: Airway is patent Respiratory effort is even, unlabored. Derm: Skin is pink, warm & dry. normal. 22:42 General: Appears in no apparent distress, comfortable, Behavior is appropriate for age, ms18 cooperative, pleasant. Pain: Denies pain. Neurological: Level of Consciousness is awake, alert, obeys commands, Oriented to person, place, time. Respiratory: No deficits noted. GI: Abdomen is non- distended. Derm: Skin is pink, warm & dry. normal. Vital Signs: 14:07 BP 139 / 58 RA Sitting (auto/lg); Pulse 70; Resp 16; Temp 98.2(O); Pulse Ox 97% on R/A; bnb Weight 79.38 kg (R); Height 5 ft. 9 in. (175.26 cm) (R); Pain 0/10; 16:22 BP 144 / 67 Supine (auto/); Pulse 58; ms18 16:24 BP 137 / 60 Sitting (auto/); Pulse 70; ms18 16:25 BP 127 / 59 Standing (auto/); Pulse 68; ms18 16:36 BP 139 / 75 (auto/); ms18 16:38 Pulse 60 MON; Pulse Ox 96% ; ms18 17:06 BP 156 / 70 (auto/); ms18 17:06 Pulse 56 MON; Pulse Ox 98% ; ms18 22:02 BP 136 / 64 (auto/); Resp 18; Pain 0/10; ms18 22:09 Pulse 62 MON; Pulse Ox 95% ; ms18 14:07 Body Mass Index 25.84 (79.38 kg, 175.26 cm) b Vitals: 14:07 Log In Time: November 30, 2016 at 14:05. [facility] ED Course: 14:07 Patient visited by Lotus Rosenberg PCA. bnb 14:07 Neal Bertrand is Private Physician. bnb 14:07 Patient moved to Waiting bnb 14:11 Patient moved to Pre RCE bnb 14:18 Triage Initiated rs3 14:39 Leslie Vigil,LUTHER is Primary Nurse. ck1 14:39 Patient moved to 5 ck1 14:44 Patient visited by Hanny Klein RN. ck1 14:55 Kunal Andrea MD is Attending Physician. br1 15:03 Patient visited by Kunal Andrea MD. br1 15:07 EKG done. (by ED staff). Reviewed by Kunal Andrea MD. nb2 15:36 Basic Metabolic Profile Sent. ld5 15:36 CBC with Diff Sent. ld5 15:36 Cardiac Injury Profile Sent. ld5 15:36 Troponin Sent. ld5 15:42 Chest, 2 View (pa\E\lat) Returned. EDMS 15:42 CT Head Without Contrast Returned. EDMS 16:31 Patient visited by Leslie Vigil RN. ms18 16:31 CT Head Without Contrast Returned. EDMS 16:31 CT Spine,Cervical W/o Contrast Returned. EDMS 16:31 Hand, Complete Returned. EDMS 16:32 The patient / caregiver is instructed regarding the plan of care and ED course. Patient ms18 has correct armband on for positive identification. Placed in gown. Bed in low position. Call light in reach. Side rails up X2. Property :Personal belongings accompany Pt. 16:32 Inserted saline lock: 18 gauge in right antecubital area and blood collected. The ms18 patient tolerated the procedure well. 16:38 Patient visited by Chiquita Ventura. dem1 16:38 management lecturer on. Pulse ox on. NIBP on. dem1 17:13 Patient visited by Leslie Vigil,LUTHER. ms18 17:55 KristieJasmina guzman is Hospitalizing Provider. br1 19:05 [facility] [place] Payment Agreement was scanned into Urgent Group and attached to record. ks16 19:22 Patient moved to Admit Hold daq 20:52 -MRI-Brain without Returned. EDMS 20:52 -MRA-Brain without contrast Returned. EDMS 22:02 No procedures done that require assistance. ms18 22:04 Patient moved to 18 sls1 22:04 Patient moved to Admit Hold sls1 22:09 Patient visited by Leslie Vigil,LUTHER. ms18 22:42 Patient visited by Leslie Vigil,LUTHER. ms18 23:10 Primary Nurse role handed off by Leslie Vigil,LUTHER ms18 12/01 12:25 Patient moved to Ultrasound am17 12:39 Patient moved to 18 am17 15:12 T-Sheet-- Draft Copy was scanned into Urgent Group and attached to record. gb 15:12 ECG/EKG was scanned into Urgent Group and attached to record. gb Administered Medications: 11/30 16:31 Drug: NS 0.9% 500 ml [sodium chloride 0.9 % intravenous solution] Route: IV; Rate: ms18 bolus; Site: right antecubital; 17:13 Follow up: IV Status: Completed infusion; IV Intake: 500ml ms18 18:11 Drug: NS 0.9% 500 ml [sodium chloride 0.9 % intravenous solution] Route: IV; Rate: ms18 bolus; Site: right antecubital; 19:37 Follow up: IV Status: Completed infusion; IV Intake: 500ml ms18 19:37 Drug: LORazepam 1 mg [lorazepam 2 mg/mL injection solution (0.5 mL)] Route: IVP; Site: ms18 right antecubital; Intake: 17:13 IV: 500.00ml; Total: 500.00ml. ms18 19:37 IV: 500.00ml; Total: 1000.00ml. ms18 Order Results: Lab Order: Basic Metabolic Profile; SPEC'M 11/30/16 16:19 Test: GLUCOSE, FASTING; Value: 97; Range: 83-110; Units: MG/DL; Status: F Test: BLOOD UREA NITROGEN; Value: 15; Range: 7-18; Units: MG/DL; Status: F Test: CREATININE FOR GFR; Value: 0.96; Range: 0.70-1.30; Units: MG/DL; Status: F Test: GLOMERULAR FILTRATION RATE; Value: > 60.0; Range: >42; Status: F Test: SODIUM LEVEL; Value: 141; Range: 136-145; Units: MEQ/L; Status: F Test: POTASSIUM SERUM; Value: 4.8; Range: 3.5-5.1; Units: MEQ/L; Status: F Test: CHLORIDE LEVEL; Value: 106; Range: 98-107; Units: MEQ/L; Status: F Test: CARBON DIOXIDE LEVEL; Value: 29; Range: 21-32; Units: MEQ/L; Status: F Test: ANION GAP; Value: 6; Range: 8-16; Abnormal: Below low normal; Units: MEQ/L; Status: F Test: CALCIUM LEVEL; Value: 9.1; Range: 8.8-10.2; Units: MG/DL; Status: F Test Note: ; Units are mL/min/1.73 m2 Chronic Kidney Disease Staging per NKF: Stage I & II GFR >=60 Normal to Mildly Decreased Stage III GFR 30-59 Moderately Decreased Stage IV GFR 15-29 Severely Decreased Stage V GFR <15 Very Little GFR Left ESRD GFR <15 on STAMP PAD MAKER Lab Order: CBC with Diff; SPEC'M 11/30/16 15:35 Test: WHITE BLOOD COUNT; Value: 8.0; Range: 4.0-10.0; Units: K/mm3; Status: F Test: RED BLOOD COUNT; Value: 4.86; Range: 4.30-6.10; Units: M/mm3; Status: F Test: HEMOGLOBIN; Value: 15.0; Range: 14.0-18.0; Units: g/dl; Status: F Test: HEMATOCRIT; Value: 45.0; Range: 42.0-52.0; Units: %; Status: F Test: MEAN CORPUSCULAR VOLUME; Value: 92.7; Range: 80.0-96.0; Units: fl; Status: F Test: MEAN CORPUSCULAR HEMOGLOBIN; Value: 30.8; Range: 27.0-33.0; Units: pg; Status: F Test: MEAN CORPUSCULAR HGB CONC; Value: 33.2; Range: 32.0-36.5; Units: g/dl; Status: F Test: RED CELL DISTRIBUTION WIDTH; Value: 14.4; Range: 11.5-14.5; Units: %; Status: F Test: PLATELET COUNT, AUTOMATED; Value: 286; Range: 150-450; Units: k/mm3; Status: F Test: NEUTROPHILS %; Value: 69.4; Range: 36.0-66.0; Abnormal: Above high normal; Units: %; Status: F Test: LYMPH %; Value: 19.1; Range: 24.0-44.0; Abnormal: Below low normal; Units: %; Status: F Test: MONO %; Value: 5.4; Range: 0.0-5.0; Abnormal: Above high normal; Units: %; Status: F Test: EOS %; Value: 2.5; Range: 0.0-3.0; Units: %; Status: F Test: BASO %; Value: 0.6; Range: 0.0-1.0; Units: %; Status: F Test: LARGE UNSTAINED CELL %; Value: 3.0; Range: 0.0-4.0; Units: %; Status: F Test: NEUTROPHILS #; Value: 5.6; Range: 1.8-7.7; Units: K/mm3; Status: F Test: LYMPH #; Value: 1.5; Range: 1.5-4.5; Units: K/mm3; Status: F Test: MONO #; Value: 0.4; Range: 0.0-0.8; Units: K/mm3; Status: F Test: EOS #; Value: 0.2; Range: 0.0-0.50; Units: K/mm3; Status: F Test: BASO #; Value: 0.0; Range: 0.0-0.2; Units: K/mm3; Status: F Test: LARGE UNSTAINED CELL #; Value: 0.2; Range: 0.0-0.4; Units: K/mm3; Status: F Lab Order: Cardiac Injury Profile; SPEC'M 11/30/16 16:19 Test: CPK CREATINE PHOSPHOKINASE; Value: 138; Range: 39-308; Units: U/L; Status: F Test: CK-MB VALUE MASS; Value: 2.3; Range: 0.0-3.6; Units: NG/ML; Status: F Test: MB/CK RELATIVE INDEX; Value: 1.66; Range: < OR =4; Status: F Test Note: ; DIAGNOSIS CRITERIA MMB ng/ml Relative Index (RI) NON-AMI < or = 5 N/A KHAN ZONE > 5 < or = 4 AMI > 5 > 4 Lab Order: Troponin; SPEC'M 11/30/16 16:19 Test: TROPONIN I; Value: < 0.02; Range: < 0.10; Units: NG/ML; Status: F Test Note: ; Troponin I Reference Interval for SpeechCycle LOCI: 99th Percentile= 0.00-0.045 ng/ml Risk Stratification: <= 0.10 ng/ml Decreased Risk for Adverse Clinical Events. 0.10-1.50 ng/ml Increased Risk for Adverse Clinical Events. Evaluation of additional criterion and/or repeat testing in 2-6 hours is suggested to rule out myocardial damage. >= 1.50 ng/ml Indicative of Myocardial Injury. Lab Order: LIVER PROFILE; [facility] 11/30/16 19:08 Test: AST/SGOT; Value: 26; Range: 15-37; Units: U/L; Status: F Test: ALT/SGPT; Value: 28; Range: 12-78; Units: U/L; Status: F Test: ALKALINE PHOSPHATASE; Value: 101; Range: 45-117; Units: U/L; Status: F Test: BILIRUBIN,TOTAL; Value: 0.5; Range: 0.2-1.0; Units: MG/DL; Status: F Test: BILIRUBIN,DIRECT; Value: 0.1; Range: 0.0-0.2; Units: MG/DL; Status: F Test: TOTAL PROTEIN; Value: 7.4; Range: 6.4-8.2; Units: GM/DL; Status: F Test: ALBUMIN; Value: 4.0; Range: 3.2-5.2; Units: GM/DL; Status: F Test: ALBUMIN/GLOBULIN RATIO; Value: 1.18; Range: 1.00-1.93; Status: F Lab Order: AMMONIA; [facility] 11/30/16 19:08 Test: AMMONIA; Value: 17; Range: <32; Units: uMOL/L; Status: F Lab Order: FOLATE; [facility] 11/30/16 19:08 Test: FOLATE; Value: > 24.0; Range: >5.4; Units: NG/ML; Status: F Test Note: ; FOLATE NORMAL RANGE NORMAL GREATER THAN 5.4 NG/ML INDETERMINATE 3.4-5.4 NG/ML DEFICIENT LESS THAN 3.4 NG/ML Lab Order: THYROID STIMULATING HORMONE; [facility] 19:10 Test: THYROID STIMULATING HORMONE; Value: 1.830; Range: 0.358-3.740; Units: uIU/ML; Status: F Lab Order: COMPLETE BLOOD COUNT; [facility] 12/01/16 05:55 Test: WHITE BLOOD COUNT; Value: 7.1; Range: 4.0-10.0; Units: K/mm3; Status: F Test: RED BLOOD COUNT; Value: 4.17; Range: 4.30-6.10; Abnormal: Below low normal; Units: M/mm3; Status: F Test: HEMOGLOBIN; Value: 13.1; Range: 14.0-18.0; Abnormal: Below low normal; Units: g/dl; Status: F Test: HEMATOCRIT; Value: 39.3; Range: 42.0-52.0; Abnormal: Below low normal; Units: %; Status: F Test: MEAN CORPUSCULAR VOLUME; Value: 94.1; Range: 80.0-96.0; Units: fl; Status: F Test: MEAN CORPUSCULAR HEMOGLOBIN; Value: 31.4; Range: 27.0-33.0; Units: pg; Status: F Test: MEAN CORPUSCULAR HGB CONC; Value: 33.3; Range: 32.0-36.5; Units: g/dl; Status: F Test: RED CELL DISTRIBUTION WIDTH; Value: 14.9; Range: 11.5-14.5; Abnormal: Above high normal; Units: %; Status: F Test: PLATELET COUNT, AUTOMATED; Value: 258; Range: 150-450; Units: k/mm3; Status: F Lab Order: BASIC METABOLIC PROFILE; [facility] 12/01/16 05:55 Test: GLUCOSE, FASTING; Value: 102; Range: 83-110; Units: MG/DL; Status: F Test: BLOOD UREA NITROGEN; Value: 13; Range: 7-18; Units: MG/DL; Status: F Test: CREATININE FOR GFR; Value: 0.85; Range: 0.70-1.30; Units: MG/DL; Status: F Test: GLOMERULAR FILTRATION RATE; Value: > 60.0; Range: >42; Status: F Test: SODIUM LEVEL; Value: 142; Range: 136-145; Units: MEQ/L; Status: F Test: POTASSIUM SERUM; Value: 4.3; Range: 3.5-5.1; Units: MEQ/L; Status: F Test: CHLORIDE LEVEL; Value: 110; Range: 98-107; Abnormal: Above high normal; Units: MEQ/L; Status: F Test: CARBON DIOXIDE LEVEL; Value: 23; Range: 21-32; Units: MEQ/L; Status: F Test: ANION GAP; Value: 9; Range: 8-16; Units: MEQ/L; Status: F Test: CALCIUM LEVEL; Value: 8.4; Range: 8.8-10.2; Abnormal: Below low normal; Units: MG/DL; Status: F Test Note: ; Units are mL/min/1.73 m2 Chronic Kidney Disease Staging per NKF: Stage I & II GFR >=60 Normal to Mildly Decreased Stage III GFR 30-59 Moderately Decreased Stage IV GFR 15-29 Severely Decreased Stage V GFR <15 Very Little GFR Left ESRD GFR <15 on STAMP PAD MAKER Radiology Order: Chest, 2 View (pa\E\lat) Test: Chest, 2 View (pa\E\lat) REASON FOR EXAMINATION: Syncope; Chest two views; ; HISTORY: Syncope; ; Comparison: 10/16/2007; ; The lungs are clear. The heart is normal in size. The pulmonary vasculature is; normal in appearance. The bony structure is intact.; ; IMPRESSION: No acute disease.; ; ; Signed by; Tirso Whipple MD 11/30/2016 03:27 P; Radiology Order: CT Head Without Contrast Test: CT Head Without Contrast REASON FOR EXAMINATION: Trauma; CT head without contrast:; ; History: Trauma.; ; Areas of decreased attenuation are present in the periventricular and subcortical; white matter. This represents small vessel ischemic disease. There is no; intraparenchymal hemorrhage, mass or midline shift. The ventricular system and; cortical sulci are dilated consistent with minimal volume loss. There is no; extracerebral collection. There is no fracture. The visualized sinuses are; clear.; ; IMPRESSION:; ; 1. Small vessel ischemic disease.; ; 2. Minimal volume loss.; ; ; Signed by; Tirso Whipple MD 11/30/2016 04:02 P; Radiology Order: CT Spine,Cervical W/o Contrast Test: CT Spine,Cervical W/o Contrast REASON FOR EXAMINATION: Trauma; CT CERVICAL SPINE WITHOUT CONTRAST:; ; HISTORY: Trauma.; ; There is no acute fracture. Disc bulges are present at the C2-3 and C3-4 levels.; Disc bulges with associated osteophyte formation are present at the C4-5 through; C6-7 levels. There is minimal narrowing of the spinal canal. Uncinate process; and/or facet hypertrophy are present at the C2-3 through C7-T1 levels. These; findings produce minimal to mild narrowing of the neural foramina. The C4-5; through C6-7 intervertebral discs are decreased in height consistent with disc; degeneration. There are 1.5 mm of anterior subluxation of C2 on 3 , 2 mm; of anterior subluxation of C3 on 4 and 3 mm of anterior subluxation of C7 on T1.; There is ossification of the C2 transverse ligament. Anterior osteophytes are; present at the C1-2 and C4-5 through C6-7 levels. A 2 cm hypodensity containing; calcification is present in the right thyroid lobe. The right thyroid lobe is; enlarged. The left thyroid lobe is normal.; ; IMPRESSION:; ; 1. There is no acute fracture.; ; 2. There is cervical spondylosis at the C1-2 through C7-T1 levels.; ; 3. There is a 2 cm hypodensity in the right thyroid lobe. Ultrasound may be; helpful for further evaluation.; ; ; Signed by; Tirso Whipple MD 11/30/2016 04:02 P; Radiology Order: Hand, Complete Test: Hand, Complete REASON FOR EXAMINATION: Trauma; Nickel: Trauma.; ; Technique: AP, lateral, bilateral oblique views of the right hand.; ; Findings:; Advanced degenerative changes are appreciated primarily involving the wrist and; specifically the first and second carpometacarpal joints with chronic; subluxation. Subtle acute injury cannot definitively be excluded.; ; Impression:; Advanced degenerative changes as described above.; ; ; Signed by; Jd Bianchi MD 11/30/2016 03:37 P; Radiology Order: -MRA-Brain without contrast Test: -MRA-Brain without contrast REASON FOR EXAMINATION: CVA >4.5hrs; ; MRI of the brain; clinical history: fall, CVA.; Technique: [id number] MRA images of the brain were obtained without administration of contrast. 3; -D MIP images were also obtained.; Findings: The vascular structures extending from the distal carotid and vertebrobasilar arterial syst; ems, through the wrangell of Gan, demonstrate normal caliber and contour. The left vertebral artery; is dominant. There is no evidence of aneurysm, stenosis, or thrombosis.; Impression: Unremarkable MRA examination of the brain.; ; Radiology Order: -MRI-Brain without Test: -MRI-Brain without REASON FOR EXAMINATION: CVA >4.5hrs; ; MRI of the brain without contrast; Clinical history: fall.; Technique: Multiecho multiplanar MRI images of the brain were obtained without administration of cont; rast. Diffusion weighted images with ADC mapping was also obtained.; Findings:; The ventricles and sulci are symmetric but prominent in size bilaterally. The brain parenchyma demons; trates diffuse T2 hyperintensity throughout the subcortical white matter. There is no midline shift,; mass effect, or extra-axial fluid collection. The midline intracranial structures do not demonstrate; any gross abnormalities. The cervical cranial junction is intact. The orbits are unremarkable. The vi; sualized paranasal sinuses and mastoid air cells are clear. The osseous structures and superficial so; ft tissues are unremarkable. The vascular structures demonstrate appropriate flow voids.; Impression: No evidence of acute infarct or hemorrhage. Moderate diffuse cerebral atrophy and chronic; small vessel ischemic changes as described.; ; Outcome: 17:55 Decision to Hospitalize by Provider. br1 22:02 Discharge Assessment: Patient awake and alert. obeys commands, Oriented to person, ms18 place and time. Patient verbalized understanding of disposition instructions. patient administered narcotics - no. The following High Risk Discharge criteria are identified: None. Condition: good Condition: stable. CT Study completed. 12/01 15:28 Patient left the ED. dy Signatures: Dispatcher [employer] EDMS Rachel Kaye RN Veda Dangelo, Reg Reg gb Rik Hines RN LUTHER dy Hanny KleinRN RN ck1 Kunal Andrea MD MD br1 Mabel AlvaradoRN RN rs3 Eve Jeffrey RN RN ld5 Zoë Caho RN RN sls1 Chiquita Ventura dem1 Tereza Ovalle amLeslie Woodall RN RN ms18 Rosemary Mobley, Reg Reg ks16 Ángela Woo nb2 Lotus Rosenberg, BARAK SUPERVISOR [employer] bnb Chart Complete MTDD
--- NOTE | 2016-12-03 16:29 | EDDOCDS ---
Physician Documentation [facility] Name: Rafael Randhawa Age: 81 yrs Sex: Male : 1935 Arrival Date: 11/30/2016 Time: 14:05 Bed 18 Private MD: Neal Perez Disposition: 11/30/16 17:55 Hospitalization ordered by Jasmina Frey for Inpatient Admission. Preliminary diagnosis are Syncope and collapse, Abnormalities of gait and mobility. - Bed requested for M ICU. - Status is Inpatient Admission. dy - Condition is Stable. - Problem is new. - Symptoms are unchanged. Historical: - Allergies: Keflex (Hives); Clindamycin (Anaphylaxis); Cipro PO (Hives); BACITRACIN (Hives); Dilaudid; OxyContin (Unknown); Lipitor (muscle cramps); PENICILLINS (Hives); - Home Meds: 1. simvastatin 80 mg Oral tab daily 2. Flomax 0.4 mg Oral cp24 1 cap once daily 3. ramipril 5 mg Oral cap 1 cap once daily 4. cetirizine 10 mg oral tab 1 tab once daily 5. Symbicort 160-4.5 mcg/actuation inhalation HFAA 6. Ventolin HFA 90 mcg/actuation Nebulizer HFAA every 4 hours - PMHx: Hypertension; BPH; Asthma; - PSHx: Aneurysm Repair, Abdominal Aorta; Splenectomy; Hip Arthroplasty, Left; - Social history: Smoking status: Patient states former smoker of tobacco. No barriers to communication noted, The patient speaks fluent Pashto. - Family history: Not pertinent. - : The pt / caregiver states he / she is not on anticoagulants. Home medication list is obtained from the patient. - Exposure Risk Screening:: None identified. Vital Signs: 11/30 14:07 BP 139 / 58 RA Sitting (auto/lg); Pulse 70; Resp 16; Temp 98.2(O); Pulse Ox 97% on R/A; bnb Weight 79.38 kg / 175 lbs (R); Height 5 ft. 9 in. (175.26 cm) (R); Pain 0/10; 16:22 BP 144 / 67 Supine (auto/); Pulse 58; ms18 16:24 BP 137 / 60 Sitting (auto/); Pulse 70; ms18 16:25 BP 127 / 59 Standing (auto/); Pulse 68; ms18 16:36 BP 139 / 75 (auto/); ms18 16:38 Pulse 60 MON; Pulse Ox 96% ; ms18 17:06 BP 156 / 70 (auto/); ms18 17:06 Pulse 56 MON; Pulse Ox 98% ; ms18 22:02 BP 136 / 64 (auto/); Resp 18; Pain 0/10; ms18 22:09 Pulse 62 MON; Pulse Ox 95% ; ms18 14:07 Body Mass Index 25.84 (79.38 kg, 175.26 cm) bnb MDM: 14:46 ECG WITH READING ER PHYS+CARDIAG ordered. EDMS 15:03 Solvent Recoverer/Pulse Ox/q 30 min VS ordered. br1 15:03 IV Saline Lock ordered. br1 15:03 Rhythm Strip to chart ordered. br1 15:03 Undress patient appropriately for examination ordered. br1 15:04 Orthostatic VS ordered. br1 15:05 Basic Metabolic Profile Ordered. EDMS 15:05 CBC with Diff Ordered. EDMS 15:05 Cardiac Injury Profile Ordered. EDMS 15:05 Troponin Ordered. EDMS 15:05 Chest, 2 View (pa\E\lat) Ordered. EDMS 15:05 Hand, Complete Ordered. EDMS 15:05 CT Head Without Contrast Ordered. EDMS 15:05 CT Spine,Cervical W/o Contrast Ordered. EDMS 15:43 Financial registration complete. [email or web address] 15:56 CBC with Diff Reviewed. br1 15:56 Chest, 2 View (pa\E\lat) Reviewed. br1 15:56 CT Head Without Contrast Reviewed. br1 16:27 NS 0.9% 500 ml IV at bolus once ordered. br1 16:30 ED course: dr perez faxed formal report of ct c spine fo fu of thyroid nodule mlg. ml 16:32 CT Head Without Contrast Reviewed. br1 16:32 CT Spine,Cervical W/o Contrast Reviewed. br1 16:32 Hand, Complete Reviewed. br1 17:40 Basic Metabolic Profile Reviewed. br1 17:40 Cardiac Injury Profile Reviewed. br1 17:40 Troponin Reviewed. br1 17:47 NS 0.9% 500 ml IV at bolus once ordered. br1 17:48 MRI Screening Tool - Place on chart, inform RN ordered. br1 17:49 BED REQUEST+ADM ordered. EDMS 17:49 -MRA-Brain without contrast Ordered. EDMS 17:49 -MRI-Brain without Ordered. EDMS 18:12 MRI Screening Tool - Place on chart, inform RN complete. ms18 18:46 Admission / Observation Status ordered. EDMS 18:47 2 GRAM SODIUM DIET ordered. EDMS 18:50 PHYSICAL THERAPY EVAL & TREAT ordered. EDMS 18:56 LIVER PROFILE Ordered. EDMS 18:56 AMMONIA Ordered. EDMS 18:56 VITAMIN B1 LEVEL Ordered. EDMS 18:56 FOLATE Ordered. EDMS 19:00 THYROID STIMULATING HORMONE Ordered. EDMS 19:05 [facility] Payment Agreement was scanned into [employer] and attached to record. [email or web address] 19:21 LORazepam 1 mg IVP once ordered. br1 19:31 COMPLETE BLOOD COUNT Ordered. EDMS 19:32 BASIC METABOLIC PROFILE Ordered. EDMS 02 11:17 Thyroid, ST head+neck US Ordered. EDMS 15:12 T-Sheet-- Draft Copy was scanned into [employer] and attached to record. gb 15:12 ECG/EKG was scanned into [employer] and attached to record. gb Administered Medications: 11/30 16:31 Drug: NS 0.9% 500 ml [sodium chloride 0.9 % intravenous solution] Route: IV; Rate: ms18 bolus; Site: right antecubital; 17:13 Follow up: IV Status: Completed infusion; IV Intake: 500ml ms18 18:11 Drug: NS 0.9% 500 ml [sodium chloride 0.9 % intravenous solution] Route: IV; Rate: ms18 bolus; Site: right antecubital; 19:37 Follow up: IV Status: Completed infusion; IV Intake: 500ml ms18 19:37 Drug: LORazepam 1 mg [lorazepam 2 mg/mL injection solution (0.5 mL)] Route: IVP; Site: ms18 right antecubital; Signatures: Dispatcher [employer] EDLA Zuly Dickinson MD MD ml Veda Brasher, Reg Reg gb Rik Hines RN RN dy Kunal Andrea MD MD br1 Mabel Alvarado RN RN rs3 Leslie Vigil RN RN ms18 Gunner Esquivel RN RN [facility] Rosemary Mobley, Reg Reg [email or web address] The chart was reviewed and I authenticate all verbal orders and agree with the evaluation and treatment provided.Corrections: (The following items were deleted from the chart) 15:44 14:46 ELECTROCARDIOGRAM PEDIATRIC+CARDIAG ordered. EDMS EDMS 12/01 05:34 05:32 COMPLETE BLOOD COUNT ordered. EDLA EDLA : 11/30 19:05 [facility] Payment Agreement [email or web address] 12/01 15:12 T-Sheet-- Draft Copy gb 15:12 ECG/EKG Chart Complete MTDD
--- NOTE | 2016-12-03 16:29 | EDDOCDS ---
Physician Documentation [facility] Name: Rafael Randhawa Age: 81 yrs Sex: Male : 1935 Arrival Date: 11/30/2016 Time: 14:05 Bed 18 Private MD: Neal Perez Disposition: 11/30/16 17:55 Hospitalization ordered by Jasmina Frey for Inpatient Admission. Preliminary diagnosis are Syncope and collapse, Abnormalities of gait and mobility. - Bed requested for M ICU. - Status is Inpatient Admission. dy - Condition is Stable. - Problem is new. - Symptoms are unchanged. Historical: - Allergies: Keflex (Hives); Clindamycin (Anaphylaxis); Cipro PO (Hives); BACITRACIN (Hives); Dilaudid; OxyContin (Unknown); Lipitor (muscle cramps); PENICILLINS (Hives); - Home Meds: 1. simvastatin 80 mg Oral tab daily 2. Flomax 0.4 mg Oral cp24 1 cap once daily 3. ramipril 5 mg Oral cap 1 cap once daily 4. cetirizine 10 mg oral tab 1 tab once daily 5. Symbicort 160-4.5 mcg/actuation inhalation HFAA 6. Ventolin HFA 90 mcg/actuation Nebulizer HFAA every 4 hours - PMHx: Hypertension; BPH; Asthma; - PSHx: Aneurysm Repair, Abdominal Aorta; Splenectomy; Hip Arthroplasty, Left; - Social history: Smoking status: Patient states former smoker of tobacco. No barriers to communication noted, The patient speaks fluent Latvian. - Family history: Not pertinent. - : The pt / caregiver states he / she is not on anticoagulants. Home medication list is obtained from the patient. - Exposure Risk Screening:: None identified. Vital Signs: 11/30 14:07 BP 139 / 58 RA Sitting (auto/lg); Pulse 70; Resp 16; Temp 98.2(O); Pulse Ox 97% on R/A; bnb Weight 79.38 kg / 175 lbs (R); Height 5 ft. 9 in. (175.26 cm) (R); Pain 0/10; 16:22 BP 144 / 67 Supine (auto/); Pulse 58; ms18 16:24 BP 137 / 60 Sitting (auto/); Pulse 70; ms18 16:25 BP 127 / 59 Standing (auto/); Pulse 68; ms18 16:36 BP 139 / 75 (auto/); ms18 16:38 Pulse 60 MON; Pulse Ox 96% ; ms18 17:06 BP 156 / 70 (auto/); ms18 17:06 Pulse 56 MON; Pulse Ox 98% ; ms18 22:02 BP 136 / 64 (auto/); Resp 18; Pain 0/10; ms18 22:09 Pulse 62 MON; Pulse Ox 95% ; ms18 14:07 Body Mass Index 25.84 (79.38 kg, 175.26 cm) bnb MDM: 14:46 ECG WITH READING ER PHYS+CARDIAG ordered. EDMS 15:03 Cold Reduction Roller/Pulse Ox/q 30 min VS ordered. br1 15:03 IV Saline Lock ordered. br1 15:03 Rhythm Strip to chart ordered. br1 15:03 Undress patient appropriately for examination ordered. br1 15:04 Orthostatic VS ordered. br1 15:05 Basic Metabolic Profile Ordered. EDMS 15:05 CBC with Diff Ordered. EDMS 15:05 Cardiac Injury Profile Ordered. EDMS 15:05 Troponin Ordered. EDMS 15:05 Chest, 2 View (pa\E\lat) Ordered. EDMS 15:05 Hand, Complete Ordered. EDMS 15:05 CT Head Without Contrast Ordered. EDMS 15:05 CT Spine,Cervical W/o Contrast Ordered. EDMS 15:43 Financial registration complete. [email or web address] 15:56 CBC with Diff Reviewed. br1 15:56 Chest, 2 View (pa\E\lat) Reviewed. br1 15:56 CT Head Without Contrast Reviewed. br1 16:27 NS 0.9% 500 ml IV at bolus once ordered. br1 16:30 ED course: dr perez faxed formal report of ct c spine fo fu of thyroid nodule mlg. ml 16:32 CT Head Without Contrast Reviewed. br1 16:32 CT Spine,Cervical W/o Contrast Reviewed. br1 16:32 Hand, Complete Reviewed. br1 17:40 Basic Metabolic Profile Reviewed. br1 17:40 Cardiac Injury Profile Reviewed. br1 17:40 Troponin Reviewed. br1 17:47 NS 0.9% 500 ml IV at bolus once ordered. br1 17:48 MRI Screening Tool - Place on chart, inform RN ordered. br1 17:49 BED REQUEST+ADM ordered. EDMS 17:49 -MRA-Brain without contrast Ordered. EDMS 17:49 -MRI-Brain without Ordered. EDMS 18:12 MRI Screening Tool - Place on chart, inform RN complete. ms18 18:46 Admission / Observation Status ordered. EDMS 18:47 2 GRAM SODIUM DIET ordered. EDMS 18:50 PHYSICAL THERAPY EVAL & TREAT ordered. EDMS 18:56 LIVER PROFILE Ordered. EDMS 18:56 AMMONIA Ordered. EDMS 18:56 VITAMIN B1 LEVEL Ordered. EDMS 18:56 FOLATE Ordered. EDMS 19:00 THYROID STIMULATING HORMONE Ordered. EDMS 19:05 [facility] Payment Agreement was scanned into [employer] and attached to record. [email or web address] 19:21 LORazepam 1 mg IVP once ordered. br1 19:31 COMPLETE BLOOD COUNT Ordered. EDMS 19:32 BASIC METABOLIC PROFILE Ordered. EDMS 02 11:17 Thyroid, ST head+neck US Ordered. EDMS 15:12 T-Sheet-- Draft Copy was scanned into [employer] and attached to record. gb 15:12 ECG/EKG was scanned into [employer] and attached to record. gb Administered Medications: 11/30 16:31 Drug: NS 0.9% 500 ml [sodium chloride 0.9 % intravenous solution] Route: IV; Rate: ms18 bolus; Site: right antecubital; 17:13 Follow up: IV Status: Completed infusion; IV Intake: 500ml ms18 18:11 Drug: NS 0.9% 500 ml [sodium chloride 0.9 % intravenous solution] Route: IV; Rate: ms18 bolus; Site: right antecubital; 19:37 Follow up: IV Status: Completed infusion; IV Intake: 500ml ms18 19:37 Drug: LORazepam 1 mg [lorazepam 2 mg/mL injection solution (0.5 mL)] Route: IVP; Site: ms18 right antecubital; Signatures: Dispatcher [employer] EDNJ Zuly Dickinson MD MD ml Veda Brasher, Reg Reg gb Rik Hines RN RN dy Kunal Andrea MD MD br1 Mabel Alvarado RN RN rs3 Leslie Vigil RN RN ms18 Gunner Esquivel RN RN [facility] Rosemary Mobley, Reg Reg ks16 The chart was reviewed and I authenticate all verbal orders and agree with the evaluation and treatment provided.Corrections: (The following items were deleted from the chart) 15:44 14:46 ELECTROCARDIOGRAM PEDIATRIC+CARDIAG ordered. EDMS EDMS 12/01 05:34 05:32 COMPLETE BLOOD COUNT ordered. EDNJ EDNJ : 11/30 19:05 [facility] Payment Agreement [email or web address] 12/01 15:12 T-Sheet-- Draft Copy gb 15:12 ECG/EKG Chart Complete MTDD
--- NOTE | 2016-12-03 17:56 | ECGEPIP ---
Stationary ECG Study [facility] Test Date: 2016-12-03 Pat Name: TIARA AL Department: Room: X8921-40 Gender: M Managed Care Liaison: CELESTINO : 1935 Requested By: Bang Gan Order Number: [id number] Reading MD: Bang Gan Measurements Intervals [place] Rate: 60 P: -59 FL: 194 QRS: -36 QRSD: 148 T: 122 QT: 495 QTc: 495 Interpretive Statements Consistent AV sequentially paced rhythm Single spontaneous sinus beat with spontaneous AV conduction, first-degree AV blockAnd narrow QRS complex. No change from tracing 12/02/16 Electronically Signed On 12-03-2016 17:56:37 EST by Bang Gan
[2016-12-06] MEDS ORDERED: CHLORTHALIDONE 12.5MG PER 1/2 TABLET PO SCH (09:00)
== END 2016-12-03 13:20 | disposition home or self-care (01) ==
LOC: M ED 14:05 → M ED INP 18:41 → M ICU 12-01 14:21
PROVIDERS: ADMIT Internal Medicine; ATTEND Internal Medicine
DX: R55 Syncope and collapse (principal); I49.5 Sick sinus syndrome; I44.0 Atrioventricular block, first degree; I10 Essential (primary) hypertension; M19.041 Primary osteoarthritis, right hand; E04.9 Nontoxic goiter, unspecified; J44.9 Chronic obstructive pulmonary disease, unspecified; N40.0 Benign prostatic hyperplasia without lower urinary tract symptoms; H40.9 Unspecified glaucoma; L25.9 Unspecified contact dermatitis, unspecified cause; Z86.79 Personal history of other diseases of the circulatory system; R94.31 Abnormal electrocardiogram [ECG] [EKG]; R01.1 Cardiac murmur, unspecified; M51.36 Other intervertebral disc degeneration, lumbar region; M54.10 Radiculopathy, site unspecified; K57.90 Diverticulosis of intestine, part unspecified, without perforation or abscess without bleeding; M16.12 Unilateral primary osteoarthritis, left hip; Z87.891 Personal history of nicotine dependence; Z79.899 Other long term (current) drug therapy; Z79.51 Long term (current) use of inhaled steroids; Z88.1 Allergy status to other antibiotic agents; Z88.3 Allergy status to other anti-infective agents; Z88.5 Allergy status to narcotic agent; Z88.0 Allergy status to penicillin; Z88.8 Allergy status to other drugs, medicaments and biological substances; Z91.81 History of falling
CPT/HCPCS: 33208; 36415; 70450; 70544; 70551; 71010; 71020; 72125; 73130; 76000; 76536; 80048; 80076; 82140; 82550; 82553; 82746; 84425; 84443; 84484; 85025; 85027; 93005; 93041; 96361; 96372; 96374; 96375; 96376; 97161; 99285; C1785; C1898; G0378; G8978; G8979; G8980; J2060; J2250; J3010; J3370

== ENCOUNTER → 2016-12-11 | Outpatient (REF) | payer MEDICARE, OTHER ==
[~2016-12-11] MED LIST: ALBU17IN INH; ALEV220T26 PO; BRIM1OPD OU; CETI10TA PO; CHLO125TA PO; FLOM5CAP PO; LATA5OPD OU; RAMI5CA PO; SYMB16INH INH; ZOCO40TA PO
[2016-12-11 16:25] LABS: ANION GAP 8 MEQ/L (8-16); BLOOD UREA NITROGEN 20 MG/DL (7-18); CALCIUM LEVEL 9.5 MG/DL (8.8-10.2); CARBON DIOXIDE LEVEL 27 MEQ/L (21-32); CHLORIDE LEVEL 104 MEQ/L (98-107); CREATININE FOR GFR 1.03 MG/DL (0.70-1.30); GLOMERULAR FILTRATION RATE > 60.0 (>42); GLUCOSE, FASTING 85 MG/DL (83-110); PHOSPHORUS LEVEL 3.6 MG/DL (2.5-4.9); POTASSIUM SERUM 4.7 MEQ/L (3.5-5.1); SODIUM LEVEL 139 MEQ/L (136-145)
== END ==
LOC: M LABDRAWP 15:29
PROVIDERS: ATTEND Internal Medicine Cardiovascular Disease
DX: N19 Unspecified kidney failure (principal)
CPT/HCPCS: 36415; 80069; G0463

== ENCOUNTER → 2017-04-12 | Outpatient (CLI) | payer MEDICARE, OTHER ==
[2017-04-12 11:03] LABS: MEAN CORPUSCULAR HEMOGLOBIN 31.6 pg (27.0-33.0); MEAN CORPUSCULAR HGB CONC 33.2 g/dl (32.0-36.5); MEAN CORPUSCULAR VOLUME 95.3 fl (80.0-96.0); RED CELL DISTRIBUTION WIDTH 14.1 % (11.5-14.5); WHITE BLOOD COUNT 8.9 K/mm3 (4.0-10.0)
[2017-04-12 11:24] LABS: ALBUMIN 3.5 GM/DL (3.2-5.2); ALBUMIN/GLOBULIN RATIO 0.97 (1.00-1.93); ALKALINE PHOSPHATASE 88 U/L (45-117); ALT/SGPT 25 U/L (12-78); ANION GAP 8 MEQ/L (8-16); AST/SGOT 19 U/L (15-37); BILIRUBIN,TOTAL 0.5 MG/DL (0.2-1.0); BLOOD UREA NITROGEN 13 MG/DL (7-18); CALCIUM LEVEL 9.1 MG/DL (8.8-10.2); CARBON DIOXIDE LEVEL 29 MEQ/L (21-32); CHLORIDE LEVEL 102 MEQ/L (98-107); CHOLESTEROL LEVEL 162 MG/DL (<200); CREATININE FOR GFR 1.08 MG/DL (0.70-1.30); GLOMERULAR FILTRATION RATE > 60.0 (>35); GLUCOSE, FASTING 118 MG/DL (83-110); POTASSIUM SERUM 3.9 MEQ/L (3.5-5.1); SODIUM LEVEL 139 MEQ/L (136-145); TOTAL PROTEIN 7.1 GM/DL (6.4-8.2); TRIGLYCERIDES LEVEL 113 MG/DL (<150)
== END ==
LOC: M LAB 09:58
PROVIDERS: ATTEND Internal Medicine
DX: J44.9 Chronic obstructive pulmonary disease, unspecified (principal); I10 Essential (primary) hypertension; R73.01 Impaired fasting glucose; E78.00 Pure hypercholesterolemia, unspecified

== ENCOUNTER → 2017-10-22 | Outpatient (REF) | payer MEDICARE, OTHER ==
[2017-10-22 12:41] LABS: ALBUMIN 3.7 GM/DL (3.2-5.2); ALBUMIN/GLOBULIN RATIO 1.28 (1.00-1.93); ALKALINE PHOSPHATASE 89 U/L (45-117); ALT/SGPT 25 U/L (12-78); ANION GAP 8 MEQ/L (8-16); AST/SGOT 25 U/L (7-37); BILIRUBIN,TOTAL 0.4 MG/DL (0.2-1.0); BLOOD UREA NITROGEN 22 MG/DL (7-18); CALCIUM LEVEL 9.1 MG/DL (8.8-10.2); CARBON DIOXIDE LEVEL 29 MEQ/L (21-32); CHLORIDE LEVEL 107 MEQ/L (98-107); CREATININE FOR GFR 0.96 MG/DL (0.70-1.30); GLOMERULAR FILTRATION RATE > 60.0 (>35); GLUCOSE, FASTING 109 MG/DL (83-110); MAGNESIUM LEVEL 2.3 MG/DL (1.8-2.4); SODIUM LEVEL 144 MEQ/L (136-145); TOTAL PROTEIN 6.6 GM/DL (6.4-8.2)
[2017-10-22 14:52] LABS: VITAMIN B12 LEVEL 274 PG/ML (247-911)
[2017-10-22 15:10] LABS: ESTIMATED AVERAGE GLUCOSE 131 MG/DL (60-110); HEMOGLOBIN A1c 6.2 %
== END ==
LOC: M SFHCPLAZ 09:51
DX: I10 Essential (primary) hypertension (principal); G62.9 Polyneuropathy, unspecified
CPT/HCPCS: 83735

== ENCOUNTER 2018-01-14 11:01 | Emergency (ER) | payer MEDICARE, OTHER ==
[2018-01-14] MEDS: INDOMETHACIN 25 MG CAP PO (12:30)
== END 2018-01-14 13:24 | disposition home or self-care (01) ==
LOC: M ED 11:01
DX: M19.031 Primary osteoarthritis, right wrist (principal); M25.411 Effusion, right shoulder; I10 Essential (primary) hypertension; E78.5 Hyperlipidemia, unspecified; Z88.1 Allergy status to other antibiotic agents; Z88.2 Allergy status to sulfonamides; Z88.0 Allergy status to penicillin; Z88.8 Allergy status to other drugs, medicaments and biological substances; Z79.899 Other long term (current) drug therapy; Z79.1 Long term (current) use of non-steroidal anti-inflammatories (NSAID)
CPT/HCPCS: 73110

== ENCOUNTER → 2018-04-29 | Outpatient (REF) | payer MEDICARE, OTHER ==
[2018-04-29 12:06] LABS: ALBUMIN 3.8 GM/DL (3.2-5.2); ALBUMIN/GLOBULIN RATIO 1.19 (1.00-1.93); ALKALINE PHOSPHATASE 93 U/L (45-117); ALT/SGPT 22 U/L (12-78); ANION GAP 9 MEQ/L (8-16); AST/SGOT 17 U/L (7-37); BILIRUBIN,TOTAL 0.7 MG/DL (0.2-1.0); BLOOD UREA NITROGEN 18 MG/DL (7-18); CALCIUM LEVEL 9.5 MG/DL (8.8-10.2); CARBON DIOXIDE LEVEL 28 MEQ/L (21-32); CHLORIDE LEVEL 107 MEQ/L (98-107); CHOLESTEROL LEVEL 155 MG/DL (<200); CHOLESTEROL RISK RATIO 2.214 (<5); CREATININE FOR GFR 0.89 MG/DL (0.70-1.30); GLOMERULAR FILTRATION RATE > 60.0 (>35); GLUCOSE, FASTING 100 MG/DL (70-100); HDL CHOLESTEROL 70 MG/DL (>40); NON-HDL-C 85 MG/DL; POTASSIUM SERUM 4.3 MEQ/L (3.5-5.1); SODIUM LEVEL 144 MEQ/L (136-145); TRIGLYCERIDES LEVEL 95 MG/DL (<150)
[2018-04-29 12:15] LABS: MAU/CREAT RATIO 31.6 MCG/MG (0.0-30.0)
[2018-04-29 12:28] LABS: ESTIMATED AVERAGE GLUCOSE 131 MG/DL (60-110); HEMOGLOBIN A1c 6.2 %
[2018-04-29 12:52] LABS: VITAMIN B12 LEVEL 1239 PG/ML (247-911)
== END ==
LOC: M SFHCPLAZ 09:20
DX: I10 Essential (primary) hypertension (principal); R73.01 Impaired fasting glucose; E78.00 Pure hypercholesterolemia, unspecified; G62.9 Polyneuropathy, unspecified
CPT/HCPCS: 83735

== ENCOUNTER → 2018-11-19 | Outpatient (CLI) | payer MEDICARE, OTHER ==
[~2018-11-19] MED LIST changes: +FLOM0.4C39 PO; -FLOM5CAP PO; +INDO25CA PO; +RAMI1CAP24 PO; -RAMI5CA PO
[2018-11-19 11:18] LABS: HEMATOCRIT 45.5 % (42.0-52.0); HEMOGLOBIN 15.1 g/dl (13.5-17.5); MEAN CORPUSCULAR HEMOGLOBIN 31.3 pg (27.0-33.0); MEAN CORPUSCULAR HGB CONC 33.2 g/dl (32.0-36.5); MEAN CORPUSCULAR VOLUME 94.2 fl (80.0-96.0); PLATELET COUNT, AUTOMATED 285 10^3/uL (150-450); RED BLOOD COUNT 4.83 10^6/uL (4.30-6.10); WHITE BLOOD COUNT 8.8 10^3/uL (4.0-10.0)
[2018-11-19 11:37] LABS: HEMOGLOBIN A1c 6.1 %
[2018-11-19 12:07] LABS: ALBUMIN 4.1 GM/DL (3.2-5.2); ALT/SGPT 23 U/L (12-78); BILIRUBIN,TOTAL 0.5 MG/DL (0.2-1.0); BLOOD UREA NITROGEN 18 MG/DL (7-18); CALCIUM LEVEL 9.4 MG/DL (8.8-10.2); CARBON DIOXIDE LEVEL 28 MEQ/L (21-32); CHLORIDE LEVEL 104 MEQ/L (98-107); GLOMERULAR FILTRATION RATE > 60.0 (>35); GLUCOSE, FASTING 101 MG/DL (70-100); MAGNESIUM LEVEL 2.4 MG/DL (1.8-2.4); POTASSIUM SERUM 4.7 MEQ/L (3.5-5.1); SODIUM LEVEL 139 MEQ/L (136-145); TOTAL PROTEIN 6.9 GM/DL (6.4-8.2)
== END ==
LOC: M LAB 10:04
PROVIDERS: ATTEND Internal Medicine
DX: I10 Essential (primary) hypertension (principal); J30.9 Allergic rhinitis, unspecified; R73.01 Impaired fasting glucose

== ENCOUNTER → 2019-05-15 | Outpatient (REF) | payer MEDICARE, OTHER ==
[~2019-05-15] MED LIST changes: +LATA0.0013 OU; -LATA5OPD OU
[2019-05-15 13:54] LABS: ALBUMIN 3.9 GM/DL (3.2-5.2); ALT/SGPT 22 U/L (12-78); BILIRUBIN,TOTAL 0.6 MG/DL (0.2-1.0); BLOOD UREA NITROGEN 16 MG/DL (7-18); CALCIUM LEVEL 9.5 MG/DL (8.8-10.2); CARBON DIOXIDE LEVEL 28 MEQ/L (21-32); CHLORIDE LEVEL 106 MEQ/L (98-107); CHOLESTEROL LEVEL 147 MG/DL (<200); CREATININE FOR GFR 1.03 MG/DL (0.70-1.30); GLOMERULAR FILTRATION RATE > 60.0 (>35); GLUCOSE, FASTING 104 MG/DL (70-100); HDL CHOLESTEROL 69 MG/DL (>40); LDL CHOLESTEROL 58 MG/DL (<100); MAGNESIUM LEVEL 2.5 MG/DL (1.8-2.4); NON-HDL-C 78 MG/DL; POTASSIUM SERUM 4.3 MEQ/L (3.5-5.1); SODIUM LEVEL 141 MEQ/L (136-145); TOTAL PROTEIN 7.1 GM/DL (6.4-8.2); TRIGLYCERIDES LEVEL 102 MG/DL (<150)
[2019-05-15 14:08] LABS: MALB URINE SIEMENS 57.3 MG/L; MAU/CREAT RATIO 19.6 MCG/MG (0.0-30.0)
[2019-05-15 14:14] LABS: HEMOGLOBIN A1c 6.4 %
== END ==
LOC: M SFHCPLAZ 09:01
PROVIDERS: ATTEND Internal Medicine
DX: I10 Essential (primary) hypertension (principal); R73.01 Impaired fasting glucose; E78.00 Pure hypercholesterolemia, unspecified

== ENCOUNTER → 2019-11-17 | Outpatient (CLI) | payer MEDICARE, OTHER ==
[~2019-11-17] MED LIST changes: +INDO-16 PO; -INDO25CA PO
[2019-11-17 12:25] LABS: HEMATOCRIT 47.4 % (42.0-52.0); HEMOGLOBIN 15.2 g/dl (13.5-17.5); MEAN CORPUSCULAR HGB CONC 32.1 g/dl (32.0-36.5); MEAN CORPUSCULAR VOLUME 96.5 fl (80.0-96.0); PLATELET COUNT, AUTOMATED 308 10^3/uL (150-450); RED BLOOD COUNT 4.91 10^6/uL (4.30-6.10)
[2019-11-17 12:35] LABS: BLOOD UREA NITROGEN 14 MG/DL (7-18); CALCIUM LEVEL 9.1 MG/DL (8.8-10.2); CARBON DIOXIDE LEVEL 28 MEQ/L (21-32); CHLORIDE LEVEL 108 MEQ/L (98-107); CREATININE FOR GFR 0.94 MG/DL (0.70-1.30); GLOMERULAR FILTRATION RATE > 60.0 (>35); GLUCOSE, FASTING 91 MG/DL (70-100); POTASSIUM SERUM 4.6 MEQ/L (3.5-5.1); SODIUM LEVEL 141 MEQ/L (136-145)
[2019-11-17 12:36] LABS: ALBUMIN 3.9 GM/DL (3.2-5.2); ALT/SGPT 23 U/L (12-78); BILIRUBIN,TOTAL 0.7 MG/DL (0.2-1.0); MAGNESIUM LEVEL 2.3 MG/DL (1.8-2.4); TOTAL PROTEIN 7.2 GM/DL (6.4-8.2)
[2019-11-17 12:40] LABS: HEMOGLOBIN A1c 6.2 %
== END ==
LOC: M PLALAB 09:33
PROVIDERS: ATTEND Internal Medicine
DX: I10 Essential (primary) hypertension (principal); R73.01 Impaired fasting glucose; J44.9 Chronic obstructive pulmonary disease, unspecified

== ENCOUNTER → 2020-02-23 | Outpatient (CLI) | payer MEDICARE, OTHER ==
--- NOTE | 2020-02-23 12:06 | REPPI ---
PELVIS, SINGLE VIEW: Single view of the pelvis performed. There is no acute fracture or dislocation. There are mild degenerative changes are seen at the right hip joint with mild joint space narrowing, subchondral sclerosis and spurring. There are diffuse vascular calcifications are seen. There are multiple metallic clips in the pelvis. Left hip prosthesis appears in good position. There are moderate degenerative changes of the lower lumbar spine. IMPRESSION: Left hip prosthesis. Mild degenerative changes right hip. Electronically Signed by Johnathon Guerin MD 02/23/2020 12:20 P
--- NOTE | 2020-02-23 12:08 | REPPI ---
LEFT HIP, TWO VIEWS: Two views of the left hip are performed. There is a total left hip prosthesis in good position. The osseous structures are intact with no fracture or abnormal lucencies. There is no dislocation. Vascular calcifications and metallic clips are seen in the medial soft tissues. IMPRESSION: Unremarkable left hip prosthesis. Electronically Signed by Johnathon Guerin MD 02/23/2020 12:20 P
== END ==
LOC: M PLAIMG 11:06
PROVIDERS: ATTEND Physician Assistant Medical
DX: M16.11 Unilateral primary osteoarthritis, right hip (principal); M25.552 Pain in left hip; Z96.642 Presence of left artificial hip joint
CPT/HCPCS: 72190; 73502; G0463

== ENCOUNTER → 2020-06-16 | Outpatient (CLI) | payer MEDICARE, OTHER ==
[2020-06-16 13:58] LABS: HEMATOCRIT 47.4 % (42.0-52.0); HEMOGLOBIN 15.2 g/dl (13.5-17.5); MEAN CORPUSCULAR HEMOGLOBIN 30.8 pg (27.0-33.0); MEAN CORPUSCULAR HGB CONC 32.1 g/dl (32.0-36.5); MEAN CORPUSCULAR VOLUME 96.1 fl (80.0-96.0); PLATELET COUNT, AUTOMATED 266 10^3/uL (150-450); RED BLOOD COUNT 4.93 10^6/uL (4.30-6.10); WHITE BLOOD COUNT 8.1 10^3/uL (4.0-10.0)
[2020-06-16 14:11] LABS: ALBUMIN 3.7 GM/DL (3.2-5.2); ALT/SGPT 19 U/L (12-78); BILIRUBIN,TOTAL 0.6 MG/DL (0.2-1.0); BLOOD UREA NITROGEN 13 MG/DL (7-18); CALCIUM LEVEL 9.3 MG/DL (8.8-10.2); CARBON DIOXIDE LEVEL 26 MEQ/L (21-32); CHLORIDE LEVEL 110 MEQ/L (98-107); CHOLESTEROL LEVEL 146 MG/DL (<200); CHOLESTEROL RISK RATIO 2.862 (<5); CREATININE FOR GFR 0.87 MG/DL (0.70-1.30); GLOMERULAR FILTRATION RATE > 60.0 (>35); GLUCOSE, FASTING 102 MG/DL (70-100); HDL CHOLESTEROL 51 MG/DL (>40); LDL CHOLESTEROL 68 MG/DL (<100); NON-HDL-C 95 MG/DL; POTASSIUM SERUM 4.3 MEQ/L (3.5-5.1); SODIUM LEVEL 141 MEQ/L (136-145); TOTAL PROTEIN 6.6 GM/DL (6.4-8.2); TRIGLYCERIDES LEVEL 133 MG/DL (<150)
[2020-06-16 15:59] LABS: HEMOGLOBIN A1c 5.9 %
== END ==
LOC: M PLALAB 09:23
PROVIDERS: ATTEND Internal Medicine
DX: I10 Essential (primary) hypertension (principal); E78.00 Pure hypercholesterolemia, unspecified; R73.01 Impaired fasting glucose; J30.9 Allergic rhinitis, unspecified; G62.9 Polyneuropathy, unspecified; R35.0 Frequency of micturition

== ENCOUNTER → 2020-12-20 | Outpatient (REF) | payer MEDICARE, OTHER ==
[2020-12-20 13:48] LABS: BASO # 0.1 10^3/uL (0.0-0.2); BASO % 0.9 % (0.0-1.0); EOS # 0.5 10^3/uL (0.0-0.5); EOS % 6.8 % (0.0-3.0); HEMATOCRIT 47.1 % (42.0-52.0); HEMOGLOBIN 15.3 g/dl (13.5-17.5); LYMPH # 2.1 10^3/uL (1.5-5.0); LYMPH % 27.5 % (24.0-44.0); MEAN CORPUSCULAR HEMOGLOBIN 30.7 pg (27.0-33.0); MEAN CORPUSCULAR HGB CONC 32.5 g/dl (32.0-36.5); MEAN CORPUSCULAR VOLUME 94.4 fl (80.0-96.0); MONO # 0.8 10^3/uL (0.0-0.8); MONO % 10.7 % (2.0-8.0); NEUTROPHILS # 4.2 10^3/uL (1.5-8.5); NEUTROPHILS % 53.8 % (36.0-66.0); PLATELET COUNT, AUTOMATED 295 10^3/uL (150-450); RED BLOOD COUNT 4.99 10^6/uL (4.30-6.10); WHITE BLOOD COUNT 7.8 10^3/uL (4.0-10.0)
[2020-12-20 14:25] LABS: BLOOD UREA NITROGEN 14 MG/DL (7-18); CARBON DIOXIDE LEVEL 28 MEQ/L (21-32); CHLORIDE LEVEL 107 MEQ/L (98-107); CREATININE FOR GFR 1.01 MG/DL (0.70-1.30); GLOMERULAR FILTRATION RATE > 60.0 (>35); GLUCOSE, FASTING 91 MG/DL (70-100); POTASSIUM SERUM 4.9 MEQ/L (3.5-5.1); SODIUM LEVEL 139 MEQ/L (136-145)
[2020-12-20 14:26] LABS: ALBUMIN 3.8 GM/DL (3.2-5.2); ALT/SGPT 19 U/L (12-78); BILIRUBIN,TOTAL 0.5 MG/DL (0.2-1.0); CALCIUM LEVEL 9.4 MG/DL (8.8-10.2); MAGNESIUM LEVEL 2.3 MG/DL (1.8-2.4); TOTAL PROTEIN 6.8 GM/DL (6.4-8.2)
[2020-12-20 14:28] LABS: HEMOGLOBIN A1c 5.8 %
[2020-12-20 14:35] LABS: MAU/CREAT RATIO 41.7 MCG/MG (0.0-30.0)
== END ==
LOC: M PLALAB 09:22
PROVIDERS: ATTEND Internal Medicine
DX: J44.9 Chronic obstructive pulmonary disease, unspecified (principal); I10 Essential (primary) hypertension; R73.01 Impaired fasting glucose; Z11.59 Encounter for screening for other viral diseases
CPT/HCPCS: 36415; 80053; 82043; 83036; 83735; 85025; G0472

== ENCOUNTER → 2021-01-06 | Outpatient (CLI) | payer MEDICARE, OTHER ==
--- NOTE | 2021-01-06 08:13 | REP ---
INDICATION: HX OF AAA. COMPARISON: 10/19/2015. TECHNIQUE: Multiple sonographic images of the abdominal aorta. FINDINGS: Aortic measurements are as follows: Proximal in diaphragm: 2.8 cm AP x 2.5 cm transverse At renal artery level: 2.5 cm AP x 2.3 cm transverse Mid aorta: 2.3 cm AP x 2.4 cm transverse Distal aorta prebifurcation: 2.2 cm AP x 2.4 cm transverse Right common iliac artery: 1.3 cm AP x 1.1 cm transverse Left common iliac artery: 1.1 cm AP x 1.2 cm transverse IMPRESSION: No abdominal aortic aneurysm is identified. There is moderate atheromatous plaque at the main renal artery level. Images are limited at the main renal artery level because of obscuring bowel gas. <Electronically signed by Johnathon Bahena > 01/06/21 [id number]
== END ==
LOC: M RAD 06:59
PROVIDERS: ATTEND Internal Medicine
DX: Z86.79 Personal history of other diseases of the circulatory system (principal)

== ENCOUNTER → 2021-07-01 | Outpatient (CLI) | payer MEDICARE, OTHER ==
[2021-07-01 13:49] LABS: ALBUMIN 3.5 GM/DL (3.2-5.2); ALT/SGPT 19 U/L (12-78); BILIRUBIN,TOTAL 0.7 MG/DL (0.2-1.0); BLOOD UREA NITROGEN 13 MG/DL (7-18); CALCIUM LEVEL 9.2 MG/DL (8.8-10.2); CARBON DIOXIDE LEVEL 26 MEQ/L (21-32); CHLORIDE LEVEL 106 MEQ/L (98-107); CHOLESTEROL LEVEL 140 MG/DL (<200); CHOLESTEROL RISK RATIO 2.187 (<5); GLOMERULAR FILTRATION RATE > 60.0 (>35); GLUCOSE, FASTING 101 MG/DL (70-100); HDL CHOLESTEROL 64 MG/DL (>40); LDL CHOLESTEROL 52 MG/DL (<100); MAGNESIUM LEVEL 2.3 MG/DL (1.8-2.4); NON-HDL-C 76 MG/DL; POTASSIUM SERUM 4.5 MEQ/L (3.5-5.1); SODIUM LEVEL 140 MEQ/L (136-145); TOTAL PROTEIN 6.7 GM/DL (6.4-8.2); TRIGLYCERIDES LEVEL 120 MG/DL (<150)
[2021-07-01 14:01] LABS: MALB URINE SIEMENS 50.8 MG/L; MAU/CREAT RATIO 21.6 MCG/MG (0.0-30.0)
[2021-07-01 15:08] LABS: HEMOGLOBIN A1c 5.8 %
== END ==
LOC: M PLALAB 09:46
PROVIDERS: ATTEND Internal Medicine
DX: I10 Essential (primary) hypertension (principal)

== ENCOUNTER → 2022-01-02 | Outpatient (CLI) | payer MEDICARE, OTHER ==
[2022-01-02 10:32] LABS: BASO # 0.1 10^3/uL (0.0-0.2); BASO % 0.7 % (0.0-1.0); EOS # 0.5 10^3/uL (0.0-0.5); EOS % 4.6 % (0.0-3.0); HEMATOCRIT 43.7 % (42.0-52.0); HEMOGLOBIN 13.9 g/dl (13.5-17.5); LYMPH # 2.5 10^3/uL (1.5-5.0); LYMPH % 26.1 % (24.0-44.0); MEAN CORPUSCULAR HEMOGLOBIN 30.2 pg (27.0-33.0); MEAN CORPUSCULAR HGB CONC 31.8 g/dl (32.0-36.5); MONO # 0.8 10^3/uL (0.0-0.8); MONO % 8.3 % (2.0-8.0); NEUTROPHILS # 5.8 10^3/uL (1.5-8.5); PLATELET COUNT, AUTOMATED 300 10^3/uL (150-450); WHITE BLOOD COUNT 9.7 10^3/uL (4.0-10.0)
[2022-01-02 12:20] LABS: HEMOGLOBIN A1c 5.6 %
[2022-01-02 13:03] LABS: ALBUMIN 3.8 GM/DL (3.2-5.2); ALT/SGPT 31 U/L (12-78); BILIRUBIN,TOTAL 0.5 MG/DL (0.2-1.0); BLOOD UREA NITROGEN 18 MG/DL (7-18); CALCIUM LEVEL 9.3 MG/DL (8.8-10.2); CARBON DIOXIDE LEVEL 28 MEQ/L (21-32); CHLORIDE LEVEL 109 MEQ/L (98-107); CREATININE FOR GFR 0.96 MG/DL (0.70-1.30); GLOMERULAR FILTRATION RATE > 60.0 (>35); GLUCOSE, FASTING 98 MG/DL (70-100); MAGNESIUM LEVEL 2.2 MG/DL (1.8-2.4); POTASSIUM SERUM 4.4 MEQ/L (3.5-5.1); SODIUM LEVEL 140 MEQ/L (136-145); TOTAL PROTEIN 6.9 GM/DL (6.4-8.2)
== END ==
LOC: M PLALAB 08:19
PROVIDERS: ATTEND Internal Medicine
DX: I10 Essential (primary) hypertension (principal)

== ENCOUNTER → 2022-07-28 | Outpatient (CLI) | payer MEDICARE, OTHER ==
[2022-07-28 14:07] LABS: HEMATOCRIT 42.7 % (42.0-52.0); HEMOGLOBIN 13.8 g/dl (13.5-17.5); MEAN CORPUSCULAR HEMOGLOBIN 30.7 pg (27.0-33.0); MEAN CORPUSCULAR HGB CONC 32.3 g/dl (32.0-36.5); MEAN CORPUSCULAR VOLUME 94.9 fl (80.0-96.0); PLATELET COUNT, AUTOMATED 270 10^3/uL (150-450); WHITE BLOOD COUNT 12.7 10^3/uL (4.0-10.0)
[2022-07-28 15:04] LABS: ALBUMIN 3.6 GM/DL (3.2-5.2); ALT/SGPT 20 U/L (12-78); BILIRUBIN,TOTAL 0.4 MG/DL (0.2-1.0); BLOOD UREA NITROGEN 21 MG/DL (7-18); C REACTIVE PROTEIN QUANTITATIV 1.51 MG/DL (0.00-0.30); CALCIUM LEVEL 9.6 MG/DL (8.8-10.2); CARBON DIOXIDE LEVEL 24 MEQ/L (21-32); CHLORIDE LEVEL 110 MEQ/L (98-107); CHOLESTEROL LEVEL 149 MG/DL (<200); CHOLESTEROL RISK RATIO 1.619 (<5); CREATININE FOR GFR 0.85 MG/DL (0.70-1.30); GLOMERULAR FILTRATION RATE > 60.0 (>35); GLUCOSE, FASTING 102 MG/DL (70-100); HDL CHOLESTEROL 92 MG/DL (>40); LDL CHOLESTEROL 43 MG/DL (<100); NON-HDL-C 57 MG/DL; POTASSIUM SERUM 4.2 MEQ/L (3.5-5.1); SODIUM LEVEL 141 MEQ/L (136-145); TOTAL PROTEIN 6.8 GM/DL (6.4-8.2); TRIGLYCERIDES LEVEL 68 MG/DL (<150)
[2022-07-28 15:07] LABS: MALB URINE SIEMENS 78.3 MG/L; MAU/CREAT RATIO 27.9 MCG/MG (0.0-30.0)
[2022-07-28 15:23] LABS: HEMOGLOBIN A1c 5.8 %
[2022-07-28 15:34] LABS: TOTAL 25(OH) VITAMIN D 17.4 NG/ML (30.0-100.0)
[2022-07-28 15:36] LABS: VITAMIN B12 LEVEL 1347 PG/ML (247-911)
== END ==
LOC: M PLAIMG 09:34
PROVIDERS: ATTEND Internal Medicine Hematology
DX: I10 Essential (primary) hypertension (principal)

== ENCOUNTER → 2022-08-17 | Outpatient (CLI) | payer MEDICARE, OTHER | LOC: M RAD 08:28 | PROVIDERS: ATTEND Internal Medicine Hematology | DX: I71.40 Abdominal aortic aneurysm, without rupture, unspecified (principal) ==

== ENCOUNTER → 2022-10-19 | Outpatient (CLI) | payer MEDICARE, OTHER ==
[2022-10-19 17:27] LABS: HEMATOCRIT 44.9 % (42.0-52.0); MEAN CORPUSCULAR HEMOGLOBIN 30.1 pg (27.0-33.0); MEAN CORPUSCULAR HGB CONC 31.2 g/dl (32.0-36.5); MEAN CORPUSCULAR VOLUME 96.6 fl (80.0-96.0); PLATELET COUNT, AUTOMATED 271 10^3/uL (150-450); RED BLOOD COUNT 4.65 10^6/uL (4.30-6.10); WHITE BLOOD COUNT 9.9 10^3/uL (4.0-10.0)
[2022-10-19 18:00] LABS: C REACTIVE PROTEIN QUANTITATIV < 0.40 MG/DL (<1.0)
[2022-10-19 18:01] LABS: ALBUMIN 3.7 G/DL (3.2-5.2); ALKALINE PHOSPHATASE 101 U/L (46-116); ALT/SGPT 12 U/L (7.0-40); AST/SGOT 22 U/L (<34); BILIRUBIN,TOTAL 0.4 MG/DL (0.3-1.2); BLOOD UREA NITROGEN 15 MG/DL (9-23); CALCIUM LEVEL 9.1 MG/DL (8.3-10.6); CARBON DIOXIDE LEVEL 23 MMOL/L (20-31); CHLORIDE LEVEL 108 MMOL/L (98-107); CHOLESTEROL LEVEL 140 MG/DL (<200); CHOLESTEROL RISK RATIO 1.96 (<5); CREATININE FOR GFR 0.76 MG/DL (0.70-1.30); FREE T4 0.99 NG/DL (0.89-1.76); GLOMERULAR FILTRATION RATE > 60.0 (>35); GLUCOSE, FASTING 82 MG/DL (74-106); HDL CHOLESTEROL 71.4 MG/DL (>40); LDL CHOLESTEROL 50.4 MG/DL (<100); NON-HDL-C 69 MG/DL; POTASSIUM SERUM 4.4 MMOL/L (3.5-5.1); SODIUM LEVEL 142 MMOL/L (136-145); THYROID STIMULATING HORMONE 1.885 uIU/ML (0.55-4.78); TOTAL 25(OH) VITAMIN D 75.7 NG/ML (20.0-100.0); TOTAL PROTEIN 6.6 G/DL (5.7-8.2); TRIGLYCERIDES LEVEL 91 MG/DL (<150); VITAMIN B12 LEVEL 490 PG/ML (211-911)
[2022-10-19 19:26] LABS: HEMOGLOBIN A1c 5.4 % (4.0-6.0)
== END ==
LOC: M PLALAB 13:58
PROVIDERS: ATTEND Internal Medicine Hematology
DX: I10 Essential (primary) hypertension (principal)

== ENCOUNTER → 2022-10-19 | Outpatient (CLI) | payer MEDICARE, OTHER ==
[~2022-10-19] MED LIST changes: +DRIS50003 PO; +NAPR-849 PO; +SIMV-254 PO; -ZOCO40TA PO
== END ==
LOC: M PLAIMG 13:32
PROVIDERS: ATTEND Internal Medicine Pulmonary Disease
DX: R06.02 Shortness of breath (principal); E78.00 Pure hypercholesterolemia, unspecified

== ENCOUNTER → 2022-10-30 | Outpatient (CLI) | payer MEDICARE, OTHER ==
[2022-10-30 14:14] LABS: CREATININE, URINE 208.8 MG/DL; MAU/CREAT RATIO 65.6 MCG/MG (0.0-30.0)
== END ==
LOC: M PLALAB 11:34
PROVIDERS: ATTEND Internal Medicine Hematology
DX: I10 Essential (primary) hypertension (principal)

== ENCOUNTER → 2022-11-30 | Outpatient (CLI) | payer MEDICARE, OTHER ==
[~2022-11-30] MED LIST changes: -DRIS50003 PO; -NAPR-849 PO; -SIMV-254 PO; +ZOCO40TA PO
== END ==
LOC: M WHC 12:34
PROVIDERS: ATTEND Internal Medicine Hematology
DX: E07.9 Disorder of thyroid, unspecified (principal)

== ENCOUNTER → 2022-11-30 | Outpatient (CLI) | payer MEDICARE, OTHER ==
[2022-11-30 15:38] LABS: BASO # 0.1 10^3/uL (0.0-0.2); BASO % 0.8 % (0.0-1.0); EOS # 0.4 10^3/uL (0.0-0.5); EOS % 4.6 % (0.0-3.0); HEMATOCRIT 44.7 % (42.0-52.0); HEMOGLOBIN 14.1 g/dl (13.5-17.5); LYMPH # 1.7 10^3/uL (1.5-5.0); MEAN CORPUSCULAR HEMOGLOBIN 30.7 pg (27.0-33.0); MEAN CORPUSCULAR HGB CONC 31.5 g/dl (32.0-36.5); MEAN CORPUSCULAR VOLUME 97.2 fl (80.0-96.0); MONO # 0.9 10^3/uL (0.0-0.8); MONO % 10.6 % (2.0-8.0); NEUTROPHILS # 5.5 10^3/uL (1.5-8.5); NEUTROPHILS % 63.5 % (36.0-66.0); PLATELET COUNT, AUTOMATED 258 10^3/uL (150-450); WHITE BLOOD COUNT 8.6 10^3/uL (4.0-10.0)
[2022-11-30 15:42] LABS: FREE T4 0.96 NG/DL (0.89-1.76); THYROID STIMULATING HORMONE 2.005 uIU/ML (0.55-4.78)
== END ==
LOC: M PLALAB 12:24
PROVIDERS: ATTEND Internal Medicine Hematology
DX: E07.9 Disorder of thyroid, unspecified (principal)

== ENCOUNTER → 2022-12-06 | Outpatient (CLI) | payer MEDICARE, OTHER ==
[~2022-12-06] MED LIST changes: +DRIS50003 PO; +LIDOCAINE 1% MDV 20ML VIAL As Ordered ONE; +NAPR-849 PO
[2022-12-06 10:38] VITALS: BP 159/69
== END ==
LOC: M IRPRO 09:21
PROVIDERS: ATTEND Internal Medicine Hematology
DX: E07.9 Disorder of thyroid, unspecified (principal)

== ENCOUNTER → 2023-02-01 | Outpatient (CLI) | payer MEDICARE, OTHER ==
[~2023-02-01] MED LIST changes: -LIDOCAINE 1% MDV 20ML VIAL As Ordered ONE; +SIMV-254 PO; -ZOCO40TA PO
[2023-02-01 16:41] LABS: FREE T4 0.93 NG/DL (0.89-1.76)
[2023-02-01 16:42] LABS: THYROID STIMULATING HORMONE 1.744 uIU/ML (0.55-4.78)
== END ==
LOC: M PLALAB 14:22
PROVIDERS: ATTEND Internal Medicine Hematology
DX: E07.9 Disorder of thyroid, unspecified (principal)

== ENCOUNTER → 2023-02-22 | Outpatient (CLI) | payer MEDICARE, OTHER ==
[2023-02-22 17:42] LABS: BASO # 0.1 10^3/uL (0.0-0.2); BASO % 0.5 % (0.0-1.0); EOS # 0.1 10^3/uL (0.0-0.5); EOS % 0.8 % (0.0-3.0); HEMATOCRIT 43.6 % (42.0-52.0); HEMOGLOBIN 14.1 g/dl (13.5-17.5); LYMPH # 1.2 10^3/uL (1.5-5.0); LYMPH % 10.6 % (24.0-44.0); MEAN CORPUSCULAR HEMOGLOBIN 30.5 pg (27.0-33.0); MEAN CORPUSCULAR HGB CONC 32.3 g/dl (32.0-36.5); MEAN CORPUSCULAR VOLUME 94.4 fl (80.0-96.0); MONO # 1.1 10^3/uL (0.0-0.8); MONO % 10.2 % (2.0-8.0); NEUTROPHILS # 8.5 10^3/uL (1.5-8.5); NEUTROPHILS % 77.3 % (36.0-66.0); PLATELET COUNT, AUTOMATED 304 10^3/uL (150-450); RED BLOOD COUNT 4.62 10^6/uL (4.30-6.10); WHITE BLOOD COUNT 11.1 10^3/uL (4.0-10.0)
[2023-02-22 17:59] LABS: ALBUMIN 3.6 G/DL (3.2-5.2); ALKALINE PHOSPHATASE 90 U/L (46-116); ALT/SGPT 14 U/L (7.0-40); AST/SGOT 18 U/L (<34); BILIRUBIN,TOTAL 0.6 MG/DL (0.3-1.2); BLOOD UREA NITROGEN 12 MG/DL (9-23); CARBON DIOXIDE LEVEL 23 MMOL/L (20-31); CHLORIDE LEVEL 106 MMOL/L (98-107); CREATININE FOR GFR 0.73 MG/DL (0.70-1.30); GLOMERULAR FILTRATION RATE > 60.0 (>35); GLUCOSE, FASTING 106 MG/DL (74-106); POTASSIUM SERUM 4.1 MMOL/L (3.5-5.1); SODIUM LEVEL 139 MMOL/L (136-145); TOTAL PROTEIN 6.7 G/DL (5.7-8.2); URIC ACID 6.4 MG/DL (3.7-9.2)
[2023-02-22 18:55] LABS: ERYTHROCYTE SEDIMENTATION RATE 48 mm/hr (0-20)
== END ==
LOC: M PLALAB 14:45
PROVIDERS: ATTEND Physician Assistant
DX: M17.11 Unilateral primary osteoarthritis, right knee (principal); M25.461 Effusion, right knee; M11.261 Other chondrocalcinosis, right knee

== ENCOUNTER → 2023-03-22 | Outpatient (REF) | payer MEDICARE, OTHER | LOC: M SFHCCAPE 03-21 11:57 | PROVIDERS: ATTEND Physician Assistant | DX: R19.7 Diarrhea, unspecified (principal) ==

== ENCOUNTER → 2023-04-19 | Outpatient (CLI) | payer MEDICARE, OTHER | LOC: M PLAIMG 13:46 | PROVIDERS: ATTEND Pain Medicine Interventional Pain Medicine | DX: M47.816 Spondylosis without myelopathy or radiculopathy, lumbar region (principal); M51.36 Other intervertebral disc degeneration, lumbar region ==

== ENCOUNTER → 2023-04-27 | Outpatient (CLI) | payer MEDICARE, OTHER ==
[2023-04-27 16:48] LABS: HEMATOCRIT 41.6 % (42.0-52.0); HEMOGLOBIN 13.1 g/dl (13.5-17.5); MEAN CORPUSCULAR HEMOGLOBIN 30.5 pg (27.0-33.0); MEAN CORPUSCULAR HGB CONC 31.5 g/dl (32.0-36.5); MEAN CORPUSCULAR VOLUME 96.7 fl (80.0-96.0); PLATELET COUNT, AUTOMATED 293 10^3/uL (150-450); WHITE BLOOD COUNT 9.1 10^3/uL (4.0-10.0)
[2023-04-27 17:19] LABS: ALBUMIN 3.3 G/DL (3.2-5.2); ALKALINE PHOSPHATASE 82 U/L (46-116); ALT/SGPT < 9 U/L (7.0-40); AST/SGOT 9 U/L (<34); BILIRUBIN,TOTAL 0.5 MG/DL (0.3-1.2); BLOOD UREA NITROGEN 14 MG/DL (9-23); CALCIUM LEVEL 8.9 MG/DL (8.3-10.6); CARBON DIOXIDE LEVEL 22 MMOL/L (20-31); CHLORIDE LEVEL 109 MMOL/L (98-107); CREATININE FOR GFR 0.89 MG/DL (0.70-1.30); GLOMERULAR FILTRATION RATE > 60.0 (>35); GLUCOSE, FASTING 96 MG/DL (74-106); POTASSIUM SERUM 4.4 MMOL/L (3.5-5.1); SODIUM LEVEL 142 MMOL/L (136-145)
== END ==
LOC: M WUC 13:29
PROVIDERS: ATTEND Internal Medicine Cardiovascular Disease
DX: I48.92 Unspecified atrial flutter (principal); I11.9 Hypertensive heart disease without heart failure; R06.02 Shortness of breath; R94.31 Abnormal electrocardiogram [ECG] [EKG]

== ENCOUNTER → 2023-05-29 | Outpatient (CLI) | payer MEDICARE, OTHER | LOC: M WUC 11:58 | PROVIDERS: ATTEND Nurse Practitioner Family | DX: R07.82 Intercostal pain (principal) ==

== ENCOUNTER → 2023-08-06 | Outpatient (CLI) | payer MEDICARE, OTHER ==
[2023-08-06 15:51] LABS: HEMATOCRIT 34.9 % (42.0-52.0); HEMOGLOBIN 11.2 g/dl (13.5-17.5); MEAN CORPUSCULAR HEMOGLOBIN 30.9 pg (27.0-33.0); MEAN CORPUSCULAR HGB CONC 32.1 g/dl (32.0-36.5); MEAN CORPUSCULAR VOLUME 96.1 fl (80.0-96.0); PLATELET COUNT, AUTOMATED 312 10^3/uL (150-450); RED BLOOD COUNT 3.63 10^6/uL (4.30-6.10); WHITE BLOOD COUNT 9.7 10^3/uL (4.0-10.0)
[2023-08-06 23:14] LABS: CREATININE, URINE 114.6 MG/DL; MAU/CREAT RATIO 53.2 MCG/MG (0.0-30.0)
[2023-08-06 23:57] LABS: ALBUMIN 3.3 G/DL (3.2-5.2); ALKALINE PHOSPHATASE 63 U/L (46-116); ALT/SGPT 12 U/L (7.0-40); AST/SGOT 16 U/L (<34); BILIRUBIN,TOTAL 0.3 MG/DL (0.3-1.2); BLOOD UREA NITROGEN 10 MG/DL (9-23); CALCIUM LEVEL 8.8 MG/DL (8.3-10.6); CARBON DIOXIDE LEVEL 24 MMOL/L (20-31); CHLORIDE LEVEL 109 MMOL/L (98-107); CHOLESTEROL LEVEL 125 MG/DL (<200); CHOLESTEROL RISK RATIO 2.04 (<5); CREATININE FOR GFR 0.69 MG/DL (0.70-1.30); GLOMERULAR FILTRATION RATE > 60.0 (>35); GLUCOSE, FASTING 95 MG/DL (74-106); LDL CHOLESTEROL 43.8 MG/DL (<100); POTASSIUM SERUM 3.9 MMOL/L (3.5-5.1); SODIUM LEVEL 143 MMOL/L (136-145); TRIGLYCERIDES LEVEL 101 MG/DL (<150)
[2023-08-07 00:01] LABS: THYROID STIMULATING HORMONE 1.717 uIU/ML (0.55-4.78)
[2023-08-07 00:03] LABS: FREE T4 0.89 NG/DL (0.89-1.76); VITAMIN B12 LEVEL 1145 PG/ML (211-911)
[2023-08-07 00:06] LABS: TOTAL 25(OH) VITAMIN D 125.6 NG/ML (20.0-100.0)
== END ==
LOC: M PLALAB 10:14
PROVIDERS: ATTEND Internal Medicine Hematology
DX: I10 Essential (primary) hypertension (principal)

== ENCOUNTER → 2023-09-03 | Outpatient (CLI) | payer MEDICARE, OTHER ==
[2023-09-03 14:17] LABS: HEMATOCRIT 35.4 % (42.0-52.0); HEMOGLOBIN 11.2 g/dl (13.5-17.5); MEAN CORPUSCULAR HEMOGLOBIN 30.6 pg (27.0-33.0); MEAN CORPUSCULAR HGB CONC 31.6 g/dl (32.0-36.5); MEAN CORPUSCULAR VOLUME 96.7 fl (80.0-96.0); PLATELET COUNT, AUTOMATED 280 10^3/uL (150-450); RED BLOOD COUNT 3.66 10^6/uL (4.30-6.10); WHITE BLOOD COUNT 9.1 10^3/uL (4.0-10.0)
== END ==
LOC: M PLALAB 09:52
PROVIDERS: ATTEND Internal Medicine Hematology
DX: D50.0 Iron deficiency anemia secondary to blood loss (chronic) (principal)

== ENCOUNTER → 2023-09-14 | Outpatient (CLI) | payer MEDICARE, OTHER | LOC: M WUC 12:40 | PROVIDERS: ATTEND Physician Assistant | DX: J01.10 Acute frontal sinusitis, unspecified (principal); J20.9 Acute bronchitis, unspecified; Z20.828 Contact with and (suspected) exposure to other viral communicable diseases ==

== ENCOUNTER 2023-09-21 12:11 | Emergency (ER) | payer MEDICARE, OTHER ==
[~2023-09-21 12:11] MED LIST changes: -PRED20TA PO
[2023-09-21] MEDS ORDERED: IPRATROPIUM 0.5MG/ALBUTEROL 2.5MG INH SOL UD 3ML (DUONEB) NEB ONE (15:15)
[2023-09-21 15:17] LABS: BLOOD UREA NITROGEN 20 MG/DL (9-23); CARBON DIOXIDE LEVEL 26 MMOL/L (20-31); CHLORIDE LEVEL 106 MMOL/L (98-107); CK-MB VALUE MASS 1.7 NG/ML (<3.6); CPK CREATINE PHOSPHOKINASE 57 U/L (46-171); GLOMERULAR FILTRATION RATE > 60.0 (>35); GLUCOSE, FASTING 113 MG/DL (74-106); MB/CK RELATIVE INDEX 2.98 (< OR =4); POTASSIUM SERUM 4.3 MMOL/L (3.5-5.1); SODIUM LEVEL 141 MMOL/L (136-145)
[2023-09-21] MEDS ORDERED: ISOVUE-370 76% 100ML VIAL As Ordered ONE (15:28)
[2023-09-21] MEDS ORDERED: PRED20TA PO (16:21)
[2023-09-21 16:45] VITALS: BP 160/73; TEMP 97.2; O2SAT 96
== END 2023-09-21 16:47 | disposition home or self-care (01) ==
LOC: M ED 12:11
DX: J09.X2 Influenza due to identified novel influenza A virus with other respiratory manifestations (principal); I71.23 Aneurysm of the descending thoracic aorta, without rupture; I10 Essential (primary) hypertension; J44.9 Chronic obstructive pulmonary disease, unspecified; E78.5 Hyperlipidemia, unspecified; Z95.0 Presence of cardiac pacemaker; N04.0 Nephrotic syndrome with minor glomerular abnormality; Z79.01 Long term (current) use of anticoagulants; Z79.899 Other long term (current) drug therapy; Z88.8 Allergy status to other drugs, medicaments and biological substances; Z88.0 Allergy status to penicillin; Z88.2 Allergy status to sulfonamides; Z88.1 Allergy status to other antibiotic agents
CPT/HCPCS: 36415; 71046; 71275; 80048; 82550; 82553; 83880; 84484; 85025; 85379; 87486; 87581; 87633; 87798; 93005; 94640; 99284; Q9967

== ENCOUNTER → 2023-09-21 | Outpatient (CLI) | payer MEDICARE, OTHER ==
[~2023-09-21] MED LIST changes: +PRED20TA PO
[2023-09-21 12:54] LABS: BASO % 0.1 % (0.0-1.0); EOS % 0.1 % (0.0-3.0); HEMATOCRIT 36.8 % (42.0-52.0); HEMOGLOBIN 11.5 g/dl (13.5-17.5); LYMPH # 1.1 10^3/uL (1.5-5.0); LYMPH % 6.9 % (24.0-44.0); MEAN CORPUSCULAR HEMOGLOBIN 29.6 pg (27.0-33.0); MEAN CORPUSCULAR HGB CONC 31.3 g/dl (32.0-36.5); MEAN CORPUSCULAR VOLUME 94.6 fl (80.0-96.0); MONO # 0.8 10^3/uL (0.0-0.8); MONO % 4.9 % (2.0-8.0); NEUTROPHILS # 14.3 10^3/uL (1.5-8.5); NEUTROPHILS % 87.4 % (36.0-66.0); PLATELET COUNT, AUTOMATED 375 10^3/uL (150-450); RED BLOOD COUNT 3.89 10^6/uL (4.30-6.10); WHITE BLOOD COUNT 16.4 10^3/uL (4.0-10.0)
== END ==
LOC: M WUC 10:52
PROVIDERS: ATTEND Internal Medicine Hematology
DX: J44.9 Chronic obstructive pulmonary disease, unspecified (principal)

== ENCOUNTER → 2023-11-09 | Outpatient (CLI) | payer MEDICARE, OTHER ==
[~2023-11-09] MED LIST changes: +PRED20TA PO
[2023-11-09 18:18] LABS: BASO # 0.1 10^3/uL (0.0-0.2); BASO % 0.5 % (0.0-1.0); EOS # 0.3 10^3/uL (0.0-0.5); EOS % 3.3 % (0.0-3.0); HEMATOCRIT 35.5 % (42.0-52.0); HEMOGLOBIN 10.8 g/dl (13.5-17.5); LYMPH # 1.6 10^3/uL (1.5-5.0); LYMPH % 16.1 % (24.0-44.0); MEAN CORPUSCULAR HGB CONC 30.4 g/dl (32.0-36.5); MEAN CORPUSCULAR VOLUME 95.4 fl (80.0-96.0); MONO # 0.9 10^3/uL (0.0-0.8); MONO % 9.2 % (2.0-8.0); NEUTROPHILS % 70.6 % (36.0-66.0); PLATELET COUNT, AUTOMATED 367 10^3/uL (150-450); RED BLOOD COUNT 3.72 10^6/uL (4.30-6.10); WHITE BLOOD COUNT 9.9 10^3/uL (4.0-10.0)
[2023-11-09 18:47] LABS: BLOOD UREA NITROGEN 16 MG/DL (9-23); CALCIUM LEVEL 9.3 MG/DL (8.3-10.6); CARBON DIOXIDE LEVEL 24 MMOL/L (20-31); CHLORIDE LEVEL 114 MMOL/L (98-107); CREATININE FOR GFR 0.69 MG/DL (0.70-1.30); GLOMERULAR FILTRATION RATE > 60.0 (>35); GLUCOSE, FASTING 99 MG/DL (74-106); PHOSPHORUS LEVEL 3.3 MG/DL (2.4-5.1); POTASSIUM SERUM 3.9 MMOL/L (3.5-5.1); SODIUM LEVEL 138 MMOL/L (136-145)
== END ==
LOC: M WUC 13:35
PROVIDERS: ATTEND Internal Medicine Cardiovascular Disease
DX: I50.32 Chronic diastolic (congestive) heart failure (principal); I48.0 Paroxysmal atrial fibrillation; I11.0 Hypertensive heart disease with heart failure; I35.1 Nonrheumatic aortic (valve) insufficiency

== ENCOUNTER → 2023-12-31 | Outpatient (CLI) | payer MEDICARE, OTHER | LOC: M WHC 09:52 | PROVIDERS: ATTEND Internal Medicine Hematology | DX: E04.1 Nontoxic single thyroid nodule (principal) ==

== ENCOUNTER → 2023-12-31 | Outpatient (CLI) | payer MEDICARE, OTHER | LOC: M PLAIMG 09:45 | PROVIDERS: ATTEND Nurse Practitioner Family | DX: S22.31XA Fracture of one rib, right side, initial encounter for closed fracture (principal); W19.XXXA Unspecified fall, initial encounter; Y92.9 Unspecified place or not applicable; Y93.9 Activity, unspecified; Y99.9 Unspecified external cause status ==

== ENCOUNTER → 2024-01-18 | Outpatient (CLI) | payer MEDICARE, OTHER ==
[2024-01-18 13:32] LABS: C REACTIVE PROTEIN QUANTITATIV < 0.40 MG/DL (<1.0); THYROID STIMULATING HORMONE 1.278 uIU/ML (0.55-4.78)
[2024-01-18 13:33] LABS: ALBUMIN 3.4 G/DL (3.2-5.2); ALKALINE PHOSPHATASE 92 U/L (46-116); ALT/SGPT 16 U/L (7.0-40); AST/SGOT 15 U/L (<34); BILIRUBIN,TOTAL 0.4 MG/DL (0.3-1.2); BLOOD UREA NITROGEN 17 MG/DL (9-23); CARBON DIOXIDE LEVEL 25 MMOL/L (20-31); CHLORIDE LEVEL 111 MMOL/L (98-107); CHOLESTEROL LEVEL 135 MG/DL (<200); CHOLESTEROL RISK RATIO 1.91 (<5); CREATININE FOR GFR 0.77 MG/DL (0.70-1.30); GLOMERULAR FILTRATION RATE > 60.0 (>35); GLUCOSE, FASTING 93 MG/DL (74-106); HDL CHOLESTEROL 70.5 MG/DL (>40); LDL CHOLESTEROL 47.3 MG/DL (<100); NON-HDL-C 64.5 MG/DL; POTASSIUM SERUM 4.7 MMOL/L (3.5-5.1); SODIUM LEVEL 143 MMOL/L (136-145); TOTAL 25(OH) VITAMIN D 81.8 NG/ML (20.0-100.0); TRIGLYCERIDES LEVEL 86 MG/DL (<150)
[2024-01-18 13:35] LABS: FREE T4 1.03 NG/DL (0.89-1.76); VITAMIN B12 LEVEL 471 PG/ML (211-911)
[2024-01-18 13:52] LABS: HEMOGLOBIN A1c 5.3 % (4.0-6.0)
== END ==
LOC: M PLALAB 09:22
PROVIDERS: ATTEND Internal Medicine Hematology
DX: R73.01 Impaired fasting glucose (principal); E07.9 Disorder of thyroid, unspecified; E78.00 Pure hypercholesterolemia, unspecified

== ENCOUNTER → 2024-01-24 | Outpatient (CLI) | payer MEDICARE, OTHER ==
[2024-01-24 12:31] LABS: BASO # 0.1 10^3/uL (0.0-0.2); BASO % 0.4 % (0.0-1.0); EOS % 0.1 % (0.0-3.0); HEMOGLOBIN 10.3 g/dl (13.5-17.5); LYMPH # 0.8 10^3/uL (1.5-5.0); LYMPH % 6.7 % (24.0-44.0); MEAN CORPUSCULAR HGB CONC 31.2 g/dl (32.0-36.5); MONO # 1.2 10^3/uL (0.0-0.8); MONO % 9.8 % (2.0-8.0); NEUTROPHILS # 9.7 10^3/uL (1.5-8.5); NEUTROPHILS % 82.3 % (36.0-66.0); PLATELET COUNT, AUTOMATED 323 10^3/uL (150-450); RED BLOOD COUNT 3.55 10^6/uL (4.30-6.10); WHITE BLOOD COUNT 11.7 10^3/uL (4.0-10.0)
[2024-01-24 12:58] LABS: BLOOD UREA NITROGEN 21 MG/DL (9-23); CARBON DIOXIDE LEVEL 23 MMOL/L (20-31); CHLORIDE LEVEL 110 MMOL/L (98-107); CREATININE FOR GFR 0.76 MG/DL (0.70-1.30); GLOMERULAR FILTRATION RATE > 60.0 (>35); GLUCOSE, FASTING 98 MG/DL (74-106); IRON (FE) 15 UG/DL (65-175); POTASSIUM SERUM 4.3 MMOL/L (3.5-5.1); SODIUM LEVEL 142 MMOL/L (136-145)
== END ==
LOC: M LAB 11:33
PROVIDERS: ATTEND Internal Medicine Hematology
DX: D50.0 Iron deficiency anemia secondary to blood loss (chronic) (principal)

== ENCOUNTER 2024-02-13 14:06 | Outpatient (CLI) | payer MEDICARE, OTHER ==
[~2024-02-13] VITALS: Ht 175.3 cm; Wt 66.4 kg
[~2024-02-13 14:06] MED LIST changes: +ALBUTEROL SULFATE 2.5MG/0.5ML INH NEB SOLN INH PRN; +EPINEPHrine INJ 1 MG/ML 1ML AMP IM PRN; -RAMI1CAP24 PO; +RAMI5CAP60 PO; +diphenhydrAMINE 50MG/ML VIAL IV PRN; +methylPREDNISolone 125MG 2ML VIAL IV PRN
[2024-02-13 14:30] VITALS: BP 180/81; O2SAT 98
[2024-02-13] MEDS ORDERED: NS 1,000 ML IV SCH (14:30)
[2024-02-13] MEDS: IRON SUCROSE 200 MG in NS 100 ML OVER 1 HR IV ONE (14:39)
[2024-02-13 15:55] VITALS: BP 150/62; O2SAT 100
== END 2024-02-13 16:00 | disposition home or self-care (01) ==
LOC: M INFU 14:06
PROVIDERS: ATTEND Internal Medicine Hematology
DX: D50.0 Iron deficiency anemia secondary to blood loss (chronic) (principal); Z88.0 Allergy status to penicillin; Z88.2 Allergy status to sulfonamides; Z88.1 Allergy status to other antibiotic agents; Z88.8 Allergy status to other drugs, medicaments and biological substances
CPT/HCPCS: 96365; J1756

== ENCOUNTER 2024-02-29 15:10 | Outpatient (CLI) | payer MEDICARE, OTHER ==
[~2024-02-29] VITALS: Ht 175.3 cm; Wt 68.2 kg
[2024-02-29 15:10] VITALS: BP 158/71; O2SAT 95
[~2024-02-29 15:10] MED LIST changes: +NS 1,000 ML IV SCH
[2024-02-29] MEDS: IRON SUCROSE 200 MG in NS 100 ML IV ONE (15:42)
[2024-02-29 15:55] VITALS: BP 166/73; O2SAT 98
== END 2024-02-29 16:55 | disposition home or self-care (01) ==
LOC: M INFU 15:10
PROVIDERS: ATTEND Internal Medicine Hematology
DX: D50.0 Iron deficiency anemia secondary to blood loss (chronic) (principal); Z88.0 Allergy status to penicillin; Z88.2 Allergy status to sulfonamides; Z88.1 Allergy status to other antibiotic agents; Z88.8 Allergy status to other drugs, medicaments and biological substances
CPT/HCPCS: 96365; J1756

== ENCOUNTER 2024-03-07 12:30 | Outpatient (CLI) | payer MEDICARE, OTHER ==
[~2024-03-07] VITALS: Ht 175.3 cm; Wt 68.2 kg
[2024-03-07 12:30] VITALS: BP 147/59; O2SAT 100
[~2024-03-07 12:30] MED LIST changes: +IRON SUCROSE 200 MG in NS 100 ML OVER 1 HR IV ONE
[2024-03-07] MEDS: IRON SUCROSE 200 MG in NS 100 ML IV ONE (12:53)
[2024-03-07 14:10] VITALS: BP 146/65; O2SAT 98
== END 2024-03-07 14:10 | disposition home or self-care (01) ==
LOC: M INFU 12:30
PROVIDERS: ATTEND Internal Medicine Hematology
DX: D50.9 Iron deficiency anemia, unspecified (principal); Z88.0 Allergy status to penicillin; Z88.2 Allergy status to sulfonamides; Z88.1 Allergy status to other antibiotic agents; Z88.8 Allergy status to other drugs, medicaments and biological substances
CPT/HCPCS: 96365; J1756

== ENCOUNTER 2024-03-14 12:25 | Outpatient (CLI) | payer MEDICARE, OTHER ==
[~2024-03-14] VITALS: Ht 175.3 cm; Wt 68.0 kg
[2024-03-14 12:25] VITALS: BP 141/63; O2SAT 98
[~2024-03-14 12:25] MED LIST changes: -IRON SUCROSE 200 MG in NS 100 ML OVER 1 HR IV ONE
[2024-03-14] MEDS: IRON SUCROSE 200 MG in NS 100 ML IV ONE (12:45)
[2024-03-14 13:55] VITALS: BP 136/61; O2SAT 100
== END 2024-03-14 14:00 | disposition home or self-care (01) ==
LOC: M INFU 12:25
PROVIDERS: ATTEND Internal Medicine Hematology
DX: D50.9 Iron deficiency anemia, unspecified (principal); Z88.0 Allergy status to penicillin; Z88.1 Allergy status to other antibiotic agents; Z88.2 Allergy status to sulfonamides
CPT/HCPCS: 96365; J1756

== ENCOUNTER → 2024-05-13 | Outpatient (CLI) | payer MEDICARE, OTHER ==
[~2024-05-13] MED LIST changes: -ALBUTEROL SULFATE 2.5MG/0.5ML INH NEB SOLN INH PRN; -EPINEPHrine INJ 1 MG/ML 1ML AMP IM PRN; -NS 1,000 ML IV SCH; -diphenhydrAMINE 50MG/ML VIAL IV PRN; -methylPREDNISolone 125MG 2ML VIAL IV PRN
[2024-05-13 10:31] LABS: BASO # 0.1 10^3/uL (0.0-0.2); BASO % 0.8 % (0.0-1.0); EOS # 0.8 10^3/uL (0.0-0.5); EOS % 8.1 % (0.0-3.0); HEMATOCRIT 30.7 % (42.0-52.0); HEMOGLOBIN 9.4 g/dl (13.5-17.5); LYMPH # 1.5 10^3/uL (1.5-5.0); LYMPH % 15.3 % (24.0-44.0); MEAN CORPUSCULAR HEMOGLOBIN 28.3 pg (27.0-33.0); MEAN CORPUSCULAR HGB CONC 30.6 g/dl (32.0-36.5); MEAN CORPUSCULAR VOLUME 92.5 fl (80.0-96.0); MONO # 0.8 10^3/uL (0.0-0.8); MONO % 8.1 % (2.0-8.0); NEUTROPHILS # 6.4 10^3/uL (1.5-8.5); NEUTROPHILS % 67.2 % (36.0-66.0); PLATELET COUNT, AUTOMATED 330 10^3/uL (150-450); RED BLOOD COUNT 3.32 10^6/uL (4.30-6.10); WHITE BLOOD COUNT 9.5 10^3/uL (4.0-10.0)
[2024-05-13 11:02] LABS: IRON (FE) 18 UG/DL (65-175)
[2024-05-13 11:03] LABS: ALBUMIN 3.2 G/DL (3.2-5.2); ALKALINE PHOSPHATASE 79 U/L (46-116); ALT/SGPT 15 U/L (7.0-40); AST/SGOT 12 U/L (<34); BILIRUBIN,TOTAL 0.3 MG/DL (0.3-1.2); BLOOD UREA NITROGEN 12 MG/DL (9-23); CARBON DIOXIDE LEVEL 23 MMOL/L (20-31); CHLORIDE LEVEL 112 MMOL/L (98-107); CHOLESTEROL LEVEL 109 MG/DL (<200); CHOLESTEROL RISK RATIO 2.43 (<5); CREATININE FOR GFR 0.68 MG/DL (0.70-1.30); GLOMERULAR FILTRATION RATE > 60.0 (>35); GLUCOSE, FASTING 92 MG/DL (74-106); HDL CHOLESTEROL 44.8 MG/DL (>40); NON-HDL-C 64.2 MG/DL; POTASSIUM SERUM 4.3 MMOL/L (3.5-5.1); SODIUM LEVEL 143 MMOL/L (136-145); TOTAL PROTEIN 5.7 G/DL (5.7-8.2); TRIGLYCERIDES LEVEL 101 MG/DL (<150)
[2024-05-13 11:07] LABS: THYROID STIMULATING HORMONE 1.792 uIU/ML (0.55-4.78)
[2024-05-13 11:08] LABS: FREE T4 0.91 NG/DL (0.89-1.76); TOTAL 25(OH) VITAMIN D 63.6 NG/ML (20.0-100.0); VITAMIN B12 LEVEL 827 PG/ML (211-911)
[2024-05-13 11:15] LABS: HEMOGLOBIN A1c 5.4 % (4.0-6.0)
== END ==
LOC: M PLALAB 08:45
PROVIDERS: ATTEND Internal Medicine Hematology
DX: E11.41 Type 2 diabetes mellitus with diabetic mononeuropathy (principal)

== ENCOUNTER 2024-05-29 14:50 | Outpatient (CLI) | payer MEDICARE, OTHER ==
[~2024-05-29] VITALS: Ht 175.3 cm; Wt 62.5 kg
[~2024-05-29 14:50] MED LIST changes: +ALBUTEROL SULFATE 2.5MG/0.5ML INH NEB SOLN INH PRN; +EPINEPHrine INJ 1 MG/ML 1ML AMP IM PRN; +diphenhydrAMINE 50MG/ML VIAL IV PRN; +methylPREDNISolone 125MG 2ML VIAL IV PRN
[2024-05-29 14:55] VITALS: BP 124/59; O2SAT 98
[2024-05-29] MEDS ORDERED: NS 1,000 ML IV SCH (15:00)
[2024-05-29] MEDS: IRON SUCROSE 300 MG in NS 250 ML OVER 90 MIN. IV ONE (15:13)
[2024-05-29 16:55] VITALS: BP 167/75; O2SAT 95
== END 2024-05-29 17:00 ==
LOC: M INFU 14:50
PROVIDERS: ATTEND Internal Medicine Hematology
DX: D50.9 Iron deficiency anemia, unspecified (principal); Z88.0 Allergy status to penicillin; Z88.1 Allergy status to other antibiotic agents; Z88.2 Allergy status to sulfonamides; Z88.8 Allergy status to other drugs, medicaments and biological substances
CPT/HCPCS: 96365; 96366; J1756

== ENCOUNTER 2024-06-12 10:40 | Outpatient (CLI) | payer MEDICARE, OTHER ==
[~2024-06-12] VITALS: Ht 175.3 cm; Wt 63.6 kg
[2024-06-12 10:40] VITALS: BP 130/58; O2SAT 90
[2024-06-12] MEDS: IRON SUCROSE 300 MG in NS 250 ML OVER 90 MIN. IV ONE (10:56)
[2024-06-12] MEDS ORDERED: NS 1,000 ML IV SCH (11:00)
[2024-06-12 12:30] VITALS: BP 134/62; O2SAT 100
== END 2024-06-12 12:40 ==
LOC: M INFU 10:40
PROVIDERS: ATTEND Internal Medicine Hematology
DX: D50.9 Iron deficiency anemia, unspecified (principal); Z88.0 Allergy status to penicillin; Z88.2 Allergy status to sulfonamides; Z88.1 Allergy status to other antibiotic agents; Z88.8 Allergy status to other drugs, medicaments and biological substances
CPT/HCPCS: 96365; 96366; J1756

== ENCOUNTER → 2024-07-28 | Outpatient (CLI) | payer MEDICARE, OTHER ==
[~2024-07-28] MED LIST changes: -ALBUTEROL SULFATE 2.5MG/0.5ML INH NEB SOLN INH PRN; -EPINEPHrine INJ 1 MG/ML 1ML AMP IM PRN; -diphenhydrAMINE 50MG/ML VIAL IV PRN; -methylPREDNISolone 125MG 2ML VIAL IV PRN
[2024-07-28 14:24] LABS: BASO # 0.1 10^3/uL (0.0-0.2); BASO % 0.5 % (0.0-1.0); EOS # 0.4 10^3/uL (0.0-0.5); EOS % 4.4 % (0.0-3.0); HEMATOCRIT 31.9 % (42.0-52.0); HEMOGLOBIN 9.9 g/dl (13.5-17.5); LYMPH # 1.4 10^3/uL (1.5-5.0); LYMPH % 15.2 % (24.0-44.0); MEAN CORPUSCULAR HEMOGLOBIN 28.2 pg (27.0-33.0); MEAN CORPUSCULAR VOLUME 90.9 fl (80.0-96.0); MONO # 0.9 10^3/uL (0.0-0.8); MONO % 9.7 % (2.0-8.0); NEUTROPHILS # 6.6 10^3/uL (1.5-8.5); PLATELET COUNT, AUTOMATED 431 10^3/uL (150-450); RED BLOOD COUNT 3.51 10^6/uL (4.30-6.10); WHITE BLOOD COUNT 9.4 10^3/uL (4.0-10.0)
[2024-07-28 14:34] LABS: ALBUMIN 3.1 G/DL (3.2-5.2); ALKALINE PHOSPHATASE 85 U/L (46-116); ALT/SGPT 10 U/L (7.0-40); AST/SGOT 10 U/L (<34); BILIRUBIN,TOTAL 0.4 MG/DL (0.3-1.2); BLOOD UREA NITROGEN 12 MG/DL (9-23); CALCIUM LEVEL 9.3 MG/DL (8.3-10.6); CARBON DIOXIDE LEVEL 24 MMOL/L (20-31); CHLORIDE LEVEL 113 MMOL/L (98-107); CHOLESTEROL LEVEL 129 MG/DL (<200); CHOLESTEROL RISK RATIO 2.26 (<5); CREATININE FOR GFR 0.66 MG/DL (0.70-1.30); FERRITIN 61.5 NG/ML (10.5-307.3); FREE T4 1.14 NG/DL (0.89-1.76); GLOMERULAR FILTRATION RATE > 60.0 (>35); GLUCOSE, FASTING 92 MG/DL (74-106); LDL CHOLESTEROL 52.8 MG/DL (<100); POTASSIUM SERUM 3.8 MMOL/L (3.5-5.1); SODIUM LEVEL 143 MMOL/L (136-145); THYROID STIMULATING HORMONE 1.771 uIU/ML (0.55-4.78); TRIGLYCERIDES LEVEL 96 MG/DL (<150); VITAMIN B12 LEVEL 712 PG/ML (211-911)
[2024-07-28 14:59] LABS: CREATININE, URINE 183.3 MG/DL
[2024-07-28 15:06] LABS: HEMOGLOBIN A1c 5.2 % (4.0-6.0)
== END ==
LOC: M PLALAB 09:47
PROVIDERS: ATTEND Internal Medicine Hematology
DX: E11.40 Type 2 diabetes mellitus with diabetic neuropathy, unspecified (principal)

== ENCOUNTER → 2024-07-29 | Outpatient (CLI) | payer MEDICARE, OTHER | LOC: M RAD 16:28 | PROVIDERS: ATTEND Physician Assistant Medical | DX: J42 Unspecified chronic bronchitis (principal); I71.23 Aneurysm of the descending thoracic aorta, without rupture; M47.892 Other spondylosis, cervical region; M43.12 Spondylolisthesis, cervical region; E04.9 Nontoxic goiter, unspecified; M54.2 Cervicalgia ==

== ENCOUNTER → 2024-07-31 | Outpatient (CLI) | payer MEDICARE, OTHER ==
[2024-07-31 16:06] LABS: PERCENT SATURATION 7.1 % (19.7-50.0)
== END ==
LOC: M PLALAB 11:58
PROVIDERS: ATTEND Internal Medicine Hematology
DX: D64.9 Anemia, unspecified (principal)

== ENCOUNTER → 2024-08-20 | Outpatient (CLI) | payer MEDICARE, OTHER | LOC: M PLAIMG 09:43 | PROVIDERS: ATTEND Internal Medicine Cardiovascular Disease | DX: I71.21 Aneurysm of the ascending aorta, without rupture (principal); I35.0 Nonrheumatic aortic (valve) stenosis; I50.32 Chronic diastolic (congestive) heart failure; Z86.79 Personal history of other diseases of the circulatory system ==

== ENCOUNTER → 2024-08-20 | Outpatient (CLI) | payer MEDICARE, OTHER | LOC: M RAD 11:10 | PROVIDERS: ATTEND Internal Medicine Hematology | DX: Z86.79 Personal history of other diseases of the circulatory system (principal) ==

== ENCOUNTER → 2024-08-26 | Outpatient (CLI) | payer MEDICARE, OTHER ==
[2024-08-26 19:25] LABS: BASO % 0.1 % (0.0-1.0); HEMATOCRIT 30.9 % (42.0-52.0); HEMOGLOBIN 9.3 g/dl (13.5-17.5); LYMPH # 0.3 10^3/uL (1.5-5.0); LYMPH % 3.5 % (24.0-44.0); MEAN CORPUSCULAR HEMOGLOBIN 27.8 pg (27.0-33.0); MEAN CORPUSCULAR HGB CONC 30.1 g/dl (32.0-36.5); MEAN CORPUSCULAR VOLUME 92.5 fl (80.0-96.0); MONO # 0.4 10^3/uL (0.0-0.8); MONO % 3.9 % (2.0-8.0); NEUTROPHILS # 8.2 10^3/uL (1.5-8.5); NEUTROPHILS % 92.2 % (36.0-66.0); PLATELET COUNT, AUTOMATED 299 10^3/uL (150-450); RED BLOOD COUNT 3.34 10^6/uL (4.30-6.10); WHITE BLOOD COUNT 8.9 10^3/uL (4.0-10.0)
[2024-08-26 19:49] LABS: ALBUMIN 3.2 G/DL (3.2-5.2); ALKALINE PHOSPHATASE 59 U/L (40-129); ALT/SGPT 15 U/L (7.0-40); AST/SGOT < 8 U/L (<34); BILIRUBIN,TOTAL 0.5 MG/DL (0.3-1.2); BLOOD UREA NITROGEN 14 MG/DL (9-23); CALCIUM LEVEL 8.7 MG/DL (8.3-10.6); CARBON DIOXIDE LEVEL 24 MMOL/L (20-31); CHLORIDE LEVEL 113 MMOL/L (98-107); CREATININE FOR GFR 0.74 MG/DL (0.70-1.30); GLOMERULAR FILTRATION RATE > 60.0 (>35); GLUCOSE, FASTING 107 MG/DL (74-106); POTASSIUM SERUM 3.7 MMOL/L (3.5-5.1); SODIUM LEVEL 143 MMOL/L (136-145); TOTAL PROTEIN 5.9 G/DL (5.7-8.2)
== END ==
LOC: M WUC 15:37
PROVIDERS: ATTEND Internal Medicine Cardiovascular Disease
DX: I48.0 Paroxysmal atrial fibrillation (principal); I35.1 Nonrheumatic aortic (valve) insufficiency; I11.0 Hypertensive heart disease with heart failure; I50.32 Chronic diastolic (congestive) heart failure

== ENCOUNTER → 2024-09-04 | Outpatient (CLI) | payer MEDICARE, OTHER ==
[2024-09-04 13:44] LABS: BASO % 0.2 % (0.0-1.0); EOS # 0.1 10^3/uL (0.0-0.5); EOS % 1.1 % (0.0-3.0); HEMATOCRIT 35.8 % (42.0-52.0); HEMOGLOBIN 10.9 g/dl (13.5-17.5); LYMPH # 0.7 10^3/uL (1.5-5.0); LYMPH % 6.1 % (24.0-44.0); MEAN CORPUSCULAR HGB CONC 30.4 g/dl (32.0-36.5); MONO # 0.7 10^3/uL (0.0-0.8); MONO % 5.5 % (2.0-8.0); NEUTROPHILS # 10.2 10^3/uL (1.5-8.5); NEUTROPHILS % 86.3 % (36.0-66.0); PLATELET COUNT, AUTOMATED 260 10^3/uL (150-450); RED BLOOD COUNT 3.89 10^6/uL (4.30-6.10); WHITE BLOOD COUNT 11.9 10^3/uL (4.0-10.0)
[2024-09-04 14:13] LABS: ALBUMIN 3.4 G/DL (3.2-5.2); BLOOD UREA NITROGEN 20 MG/DL (9-23); CALCIUM LEVEL 9.3 MG/DL (8.3-10.6); CARBON DIOXIDE LEVEL 30 MMOL/L (20-31); CHLORIDE LEVEL 107 MMOL/L (98-107); CREATININE FOR GFR 0.91 MG/DL (0.70-1.30); GLOMERULAR FILTRATION RATE > 60.0 (>35); GLUCOSE, FASTING 122 MG/DL (74-106); POTASSIUM SERUM 4.4 MMOL/L (3.5-5.1); SODIUM LEVEL 143 MMOL/L (136-145)
== END ==
LOC: M WUC 10:11
PROVIDERS: ATTEND Internal Medicine Cardiovascular Disease
DX: I50.32 Chronic diastolic (congestive) heart failure (principal); D50.0 Iron deficiency anemia secondary to blood loss (chronic)

== ENCOUNTER → 2024-09-29 | Outpatient (CLI) | payer MEDICARE, OTHER ==
[2024-09-29 17:28] LABS: ALBUMIN 3.3 G/DL (3.2-5.2); ALKALINE PHOSPHATASE 83 U/L (40-129); ALT/SGPT 32 U/L (7.0-40); AST/SGOT 21 U/L (<34); BILIRUBIN,TOTAL 0.5 MG/DL (0.3-1.2); BLOOD UREA NITROGEN 31 MG/DL (9-23); CALCIUM LEVEL 9.8 MG/DL (8.3-10.6); CARBON DIOXIDE LEVEL 26 MMOL/L (20-31); CHLORIDE LEVEL 108 MMOL/L (98-107); GLOMERULAR FILTRATION RATE > 60.0 (>35); GLUCOSE, FASTING 113 MG/DL (74-106); MAGNESIUM LEVEL 2.2 MG/DL (1.8-2.4); SODIUM LEVEL 142 MMOL/L (136-145); TOTAL PROTEIN 6.8 G/DL (5.7-8.2)
== END ==
LOC: M WUC 14:32
PROVIDERS: ATTEND Registered Nurse
DX: I50.32 Chronic diastolic (congestive) heart failure (principal)

== ENCOUNTER → 2024-10-10 | Outpatient (REF) | payer MEDICARE, OTHER ==
[2024-10-10 19:11] LABS: BASO % 0.1 % (0.0-1.0); EOS % 0.1 % (0.0-3.0); HEMATOCRIT 36.9 % (42.0-52.0); HEMOGLOBIN 11.4 g/dl (13.5-17.5); LYMPH # 0.5 10^3/uL (1.5-5.0); MEAN CORPUSCULAR HEMOGLOBIN 28.4 pg (27.0-33.0); MEAN CORPUSCULAR HGB CONC 30.9 g/dl (32.0-36.5); MONO # 0.5 10^3/uL (0.0-0.8); MONO % 3.3 % (2.0-8.0); NEUTROPHILS # 12.5 10^3/uL (1.5-8.5); NEUTROPHILS % 91.7 % (36.0-66.0); PLATELET COUNT, AUTOMATED 230 10^3/uL (150-450); RED BLOOD COUNT 4.01 10^6/uL (4.30-6.10); WHITE BLOOD COUNT 13.6 10^3/uL (4.0-10.0)
== END ==
LOC: M LABWUC 18:20 → M LAB REF 18:20
PROVIDERS: ATTEND Registered Nurse
DX: I48.0 Paroxysmal atrial fibrillation (principal)

== ENCOUNTER 2024-10-13 14:25 | Outpatient (CLI) | payer MEDICARE, OTHER ==
[~2024-10-13] VITALS: Ht 175.3 cm; Wt 60.0 kg
[~2024-10-13 14:25] MED LIST changes: +ALBUTEROL SULFATE 2.5MG/0.5ML INH NEB SOLN INH PRN; +EPINEPHrine INJ 1 MG/ML 1ML AMP IM PRN; +diphenhydrAMINE 50MG/ML VIAL IV PRN; +methylPREDNISolone 125MG 2ML VIAL IV PRN
[2024-10-13 14:50] VITALS: BP 121/58; O2SAT 97
[2024-10-13] MEDS: IRON SUCROSE 300 MG in NS 250 ML IV ONE (14:57)
[2024-10-13 16:39] VITALS: BP 120/59; O2SAT 98
== END 2024-10-13 16:40 | disposition home or self-care (01) ==
LOC: M INFU 14:25
PROVIDERS: ATTEND Internal Medicine Hematology
DX: D64.9 Anemia, unspecified (principal); Z88.0 Allergy status to penicillin; Z88.1 Allergy status to other antibiotic agents; Z88.8 Allergy status to other drugs, medicaments and biological substances
CPT/HCPCS: 96365; 96366; J1756

== ENCOUNTER 2024-10-27 11:26 | Outpatient (CLI) | payer MEDICARE, OTHER ==
[~2024-10-27] VITALS: Ht 175.3 cm; Wt 59.0 kg
[2024-10-27 11:45] VITALS: BP 129/59; O2SAT 93
[2024-10-27] MEDS: IRON SUCROSE 300 MG in NS 250 ML OVER 90 MIN. IV ONE (12:20)
[2024-10-27 14:09] VITALS: BP 123/60; O2SAT 94
== END 2024-10-27 14:10 ==
LOC: M INFU 11:26
PROVIDERS: ATTEND Internal Medicine Hematology
DX: D64.9 Anemia, unspecified (principal); Z88.0 Allergy status to penicillin; Z88.1 Allergy status to other antibiotic agents; Z88.2 Allergy status to sulfonamides
CPT/HCPCS: 96365; 96366; J1756

== ENCOUNTER → 2024-11-03 | Outpatient (CLI) | payer MEDICARE, OTHER ==
[~2024-11-03] MED LIST changes: -ALBUTEROL SULFATE 2.5MG/0.5ML INH NEB SOLN INH PRN; -EPINEPHrine INJ 1 MG/ML 1ML AMP IM PRN; -diphenhydrAMINE 50MG/ML VIAL IV PRN; -methylPREDNISolone 125MG 2ML VIAL IV PRN
[2024-11-03 18:24] LABS: ALBUMIN 3.6 G/DL (3.2-5.2); BLOOD UREA NITROGEN 35 MG/DL (9-23); CALCIUM LEVEL 9.2 MG/DL (8.3-10.6); CARBON DIOXIDE LEVEL 22 MMOL/L (20-31); CHLORIDE LEVEL 109 MMOL/L (98-107); CREATININE FOR GFR 1.07 MG/DL (0.70-1.30); GLOMERULAR FILTRATION RATE > 60.0 (>35); GLUCOSE, FASTING 96 MG/DL (74-106); MAGNESIUM LEVEL 2.5 MG/DL (1.8-2.4); PHOSPHORUS LEVEL 3.5 MG/DL (2.4-5.1); POTASSIUM SERUM 5.2 MMOL/L (3.5-5.1); SODIUM LEVEL 140 MMOL/L (136-145)
== END ==
LOC: M WUC 11:04
PROVIDERS: ATTEND Registered Nurse
DX: I50.32 Chronic diastolic (congestive) heart failure (principal)

== ENCOUNTER → 2024-11-10 | Outpatient (CLI) | payer MEDICARE, OTHER ==
[2024-11-10 14:02] LABS: BASO % 0.3 % (0.0-1.0); EOS % 0.1 % (0.0-3.0); HEMATOCRIT 38.5 % (42.0-52.0); HEMOGLOBIN 11.7 g/dl (13.5-17.5); LYMPH # 0.6 10^3/uL (1.5-5.0); MEAN CORPUSCULAR HEMOGLOBIN 28.5 pg (27.0-33.0); MEAN CORPUSCULAR HGB CONC 30.4 g/dl (32.0-36.5); MEAN CORPUSCULAR VOLUME 93.7 fl (80.0-96.0); MONO # 0.4 10^3/uL (0.0-0.8); NEUTROPHILS # 12.7 10^3/uL (1.5-8.5); NEUTROPHILS % 91.7 % (36.0-66.0); PLATELET COUNT, AUTOMATED 186 10^3/uL (150-450); RED BLOOD COUNT 4.11 10^6/uL (4.30-6.10); WHITE BLOOD COUNT 13.8 10^3/uL (4.0-10.0)
== END ==
LOC: M PLALAB 11:27
PROVIDERS: ATTEND Internal Medicine Hematology
DX: D50.0 Iron deficiency anemia secondary to blood loss (chronic) (principal)

== ENCOUNTER → 2024-11-26 | Outpatient (CLI) | payer MEDICARE ==
[~2024-11-26] MED LIST changes: +ISOVUE-370 76% 100ML VIAL ONE
== END ==
LOC: M PLAIMG 13:48
PROVIDERS: ATTEND Student in an Organized Health Care Education/Training Program
DX: I71.23 Aneurysm of the descending thoracic aorta, without rupture (principal)
CPT/HCPCS: 71275; Q9967

== ENCOUNTER 2024-11-28 13:25 | Outpatient (CLI) | payer MEDICARE, OTHER ==
[~2024-11-28] VITALS: Ht 175.3 cm; Wt 60.0 kg
[~2024-11-28 13:25] MED LIST changes: +ALBUTEROL SULFATE 2.5MG/0.5ML INH NEB SOLN INH PRN; +EPINEPHrine INJ 1 MG/ML 1ML AMP IM PRN; -ISOVUE-370 76% 100ML VIAL ONE; +diphenhydrAMINE 50MG/ML VIAL IV PRN; +methylPREDNISolone 125MG 2ML VIAL IV PRN
[2024-11-28 14:05] VITALS: BP 134/60; O2SAT 95
[2024-11-28] MEDS: IRON SUCROSE 300 MG in NS 250 ML OVER 90 MIN. IV ONE (14:14)
[2024-11-28 16:10] VITALS: BP 145/70; O2SAT 95
== END 2024-11-28 16:10 ==
LOC: M INFU 13:25
PROVIDERS: ATTEND Internal Medicine Hematology
DX: D50.9 Iron deficiency anemia, unspecified (principal); Z88.0 Allergy status to penicillin; Z88.1 Allergy status to other antibiotic agents; Z88.2 Allergy status to sulfonamides; Z88.8 Allergy status to other drugs, medicaments and biological substances
CPT/HCPCS: 96365; 96366; J1756

== ENCOUNTER → 2024-12-04 | Outpatient (CLI) | payer MEDICARE, OTHER ==
[~2024-12-04] MED LIST changes: -ALBUTEROL SULFATE 2.5MG/0.5ML INH NEB SOLN INH PRN; -EPINEPHrine INJ 1 MG/ML 1ML AMP IM PRN; -diphenhydrAMINE 50MG/ML VIAL IV PRN; -methylPREDNISolone 125MG 2ML VIAL IV PRN
[2024-12-04 18:02] LABS: ALBUMIN 3.2 G/DL (3.2-5.2); BLOOD UREA NITROGEN 19 MG/DL (9-23); CALCIUM LEVEL 8.8 MG/DL (8.3-10.6); CARBON DIOXIDE LEVEL 25 MMOL/L (20-31); CHLORIDE LEVEL 109 MMOL/L (98-107); GLOMERULAR FILTRATION RATE > 60.0 (>35); GLUCOSE, FASTING 105 MG/DL (74-106); MAGNESIUM LEVEL 2.2 MG/DL (1.8-2.4); PHOSPHORUS LEVEL 2.8 MG/DL (2.4-5.1); POTASSIUM SERUM 4.8 MMOL/L (3.5-5.1); SODIUM LEVEL 142 MMOL/L (136-145)
== END ==
LOC: M PLALAB 14:42
PROVIDERS: ATTEND Registered Nurse
DX: I50.32 Chronic diastolic (congestive) heart failure (principal)

== ENCOUNTER → 2024-12-11 | Outpatient (CLI) | payer MEDICARE, OTHER | LOC: M RAD 13:39 | PROVIDERS: ATTEND Surgery | DX: S91.105A Unspecified open wound of left lesser toe(s) without damage to nail, initial encounter (principal); I70.202 Unspecified atherosclerosis of native arteries of extremities, left leg ==

== ENCOUNTER 2024-12-12 13:40 | Outpatient (CLI) | payer MEDICARE, OTHER ==
[~2024-12-12] VITALS: Ht 175.3 cm; Wt 60.0 kg
[2024-12-12 13:30] VITALS: BP 143/63; O2SAT 95
[~2024-12-12 13:40] MED LIST changes: +ALBUTEROL SULFATE 2.5MG/0.5ML INH NEB SOLN INH PRN; +EPINEPHrine INJ 1 MG/ML 1ML AMP IM PRN; +diphenhydrAMINE 50MG/ML VIAL IV PRN; +methylPREDNISolone 125MG 2ML VIAL IV PRN
[2024-12-12] MEDS: IRON SUCROSE 300 MG in NS 250 ML OVER 90 MIN. IV ONE (13:54)
[2024-12-12 15:39] VITALS: BP 141/62; O2SAT 94
== END 2024-12-12 15:40 ==
LOC: M INFU 13:40
PROVIDERS: ATTEND Internal Medicine Hematology
DX: D50.9 Iron deficiency anemia, unspecified (principal); Z88.0 Allergy status to penicillin; Z88.1 Allergy status to other antibiotic agents; Z88.2 Allergy status to sulfonamides
CPT/HCPCS: 96365; 96366; J1756

== ENCOUNTER → 2024-12-24 | Outpatient (POV) | payer MEDICARE, OTHER ==
[~2024-12-24] VITALS: Ht 175.3 cm; Wt 59.1 kg
[~2024-12-24] MED LIST changes: -ALBUTEROL SULFATE 2.5MG/0.5ML INH NEB SOLN INH PRN; +B-12100010 PO; -EPINEPHrine INJ 1 MG/ML 1ML AMP IM PRN; -diphenhydrAMINE 50MG/ML VIAL IV PRN; -methylPREDNISolone 125MG 2ML VIAL IV PRN
[2024-12-24 10:15] VITALS: BP 124/64; O2SAT 97
== END ==
LOC: M IRPOV 10:08
PROVIDERS: ATTEND Radiology Diagnostic Radiology
DX: I70.245 Atherosclerosis of native arteries of left leg with ulceration of other part of foot (principal); L97.529 Non-pressure chronic ulcer of other part of left foot with unspecified severity; I71.23 Aneurysm of the descending thoracic aorta, without rupture; I71.40 Abdominal aortic aneurysm, without rupture, unspecified; I49.5 Sick sinus syndrome; I10 Essential (primary) hypertension; E78.5 Hyperlipidemia, unspecified; J44.9 Chronic obstructive pulmonary disease, unspecified; Z87.19 Personal history of other diseases of the digestive system; Z87.891 Personal history of nicotine dependence; Z88.0 Allergy status to penicillin; Z88.1 Allergy status to other antibiotic agents; Z88.2 Allergy status to sulfonamides; Z90.49 Acquired absence of other specified parts of digestive tract; Z95.0 Presence of cardiac pacemaker; Z96.642 Presence of left artificial hip joint

== ENCOUNTER 2024-12-26 13:45 | Outpatient (CLI) | payer MEDICARE, OTHER ==
[~2024-12-26] VITALS: Ht 175.3 cm; Wt 60.0 kg
[~2024-12-26 13:45] MED LIST changes: +ALBUTEROL SULFATE 2.5MG/0.5ML INH NEB SOLN INH PRN; +EPINEPHrine INJ 1 MG/ML 1ML AMP IM PRN; +diphenhydrAMINE 50MG/ML VIAL IV PRN; +methylPREDNISolone 125MG 2ML VIAL IV PRN
[2024-12-26] MEDS: IRON SUCROSE 300 MG in NS 250 ML IV ONE (13:53)
[2024-12-26 14:00] VITALS: BP 138/78; O2SAT 98
[2024-12-26 15:41] VITALS: BP 148/66; O2SAT 97
== END 2024-12-26 15:54 | disposition home or self-care (01) ==
LOC: M INFU 13:45
PROVIDERS: ATTEND Internal Medicine Hematology
DX: D50.9 Iron deficiency anemia, unspecified (principal); Z88.0 Allergy status to penicillin; Z88.1 Allergy status to other antibiotic agents; Z88.2 Allergy status to sulfonamides
CPT/HCPCS: 96365; 96366; J1756